=== PATIENT | female | born 1930 | race Caucasian/White ===

== ENCOUNTER 2016-07-31 11:33 | Inpatient (IN) | payer MEDICARE ==
[2016-07-31] VITALS (12 sets, daily range): BP systolic 114–137; BP diastolic 51–99; PULSE 85–94; RESP 16–18; TEMP 97.8–98; O2SAT 87–99
[~2016-07-31] VITALS: Ht 121.9 cm; Wt 53.0 kg
[~2016-07-31 11:33] MED LIST: AMLO5TAB2 PO; ASPI81CH CHEW; ATOR20TA15 PO; COMB0.2S EACH EYE; MEMA28CA PO; MIRA33504 PO; MULT1TAB84 PO; RANI150T PO; WARF-23 PO
[2016-07-31] MEDS ORDERED: SODIUM CHLORIDE 0.9% FLUSH 5 ML FLUSH IVF PRN (13:15)
[2016-07-31] MEDS ORDERED: TRAV0.00 EACH EYE (13:16)
--- NOTE | 2016-07-31 14:06 | PD ---
HPI Chief Complaint: General Weakness Time Seen by Provider: 12:35 Travel History International Travel<30 days: No Contact w/Intl Traveler<30days: No Traveled to known affect area: No History of Present Illness HPI Patient is an 86-year-old female presents with her friend from assisted living facility for concerns of left lower extremity pain superpubic pain as well as decreased mental status over the past few days. Patient's coming by her friend who also identifies as her power of admitted attorneys and states that she's been having increased confusion problems remembering things and has had recurrent falls at the assisted living facility. Patient hasn't noted no complaints of chest pain shortness of breath abdominal pain headaches. No history of fevers. No dysuria. Patient's only complaint at this time is left hip pain. She is mildly confused but is oriented to person and place. She does seem to wander in her train of thought [facility] Past Medical History Arthritis: Yes Asthma: No Autoimmune Disease: No Anxiety: No Depression: No Heart Rhythm Problems: No Cancer: No Cardiovascular Problems: Yes High Cholesterol: Yes Chest Pain: No Congestive Heart Failure: No COPD: No Cerebrovascular Accident: Yes Dementia: Yes Diabetes: No Diminished Hearing: Yes Endocrine: No Gastrointestinal Disorders: Yes GERD: Yes Glaucoma: Yes (EVA.) Genitourinary: Yes (KIDNEY SX ) Hepatitis: No Hiatal Hernia: No Hypertension: Yes Immune Disorder: No Kidney Stones: No Medical other: Yes (reflux, esophageal stricture, recent frequent falls) Musculoskeletal: Yes Neurologic: Yes Psychiatric: No Reproductive: No Respiratory: Yes (HX OF TB ) Immunizations Current: Yes Migraines: No Renal Failure: No Seizures: No Sickle Cell Disease: No Sleep Apnea: No Thyroid Disease: No Ulcer: No Tetanus Vaccination: Unknown Influenza Vaccination: Yes ?: Not Menopausal: Yes : 0 Past Surgical History Abdominal Surgery: Yes (BOWEL OBSTRUCTION,colon resection APPENDECTOMY) AICD: No Appendectomy: Yes Arteriovenous Shunt: No Cardiac Surgery: No Ear Surgery: No Endocrine Surgery: No Eye Surgery: Yes (CATARACT AND LASER) Genitourinary Surgery: Yes (KIDNEY SX, pyeloplasty ?/) Gynecologic Surgery: No Insulin Pump: No Joint Replacement: No Oral Surgery: No Pacemaker: No Thoracic Surgery: No Other Surgery: Yes Social History Alcohol Use: No Tobacco Use: Yes (QUIT 20 YEARS AGO- smoked cigs) Substance Use: No Allergies-Medications (Allergen,Severity, Reaction): Coded Allergies: Codeine (Verified Allergy, Severe, unknown reaction, 06/17/16) Flagyl (Verified Allergy, Severe, severe oral swelling, 06/17/16) Iodine (Verified Allergy, Severe, 06/17/16) HIVES Penicillin (Verified Allergy, Severe, hands swelled, 06/17/16) Bactrim (Verified Allergy, Mild, Rash, 06/17/16) Cipro (Verified Allergy, Unknown, 06/17/16) Reported Meds & Prescriptions Reported Meds & Active Scripts Active Reported Travatan Z Opth Drops (Travoprost) 0.004 % Soln 1 Drop EACH EYE HS Amlodipine (Amlodipine Besylate) 5 Mg Tab 5 Mg PO DAILY Atorvastatin (Atorvastatin Calcium) 20 Mg Tab 20 Mg PO HS Warfarin 5 Mg Tab 6 Mg PO DAILY Combigan Opth Drops (Brimonidine-Timolol Opth Drops) 0.2-0.5% Soln 1 Drop EACH EYE Q12HR Ranitidine (Ranitidine HCl) 150 Mg Tab 150 Mg PO BID Namenda Xr (Memantine) 28 Mg Caper 28 Mg PO DAILY Aspirin 81 Mg Chew 81 Mg CHEW DAILY Multivitamin Adults (Multiple Vitamins W/ Minerals) 1 Tab 1 Tab PO DAILY Miralax Powder (Polyethylene Glycol 3350 Powder) 17 Gm Powd 17 Gm PO DAILY Mix and dissolve one measuring cap-ful (17 grams) in water or juice. Review of Systems Except as stated in HPI: all other systems reviewed are Neg Physical Exam Narrative GENERAL: Well-developed well-nourished in no apparent distress SKIN: Warm and dry. HEAD: Atraumatic. Normocephalic. EYES: Pupils equal and round. No scleral icterus. No injection or drainage. ENT: No nasal bleeding or discharge. Mucous membranes pink and moist. NECK: Trachea midline. No JVD. CARDIOVASCULAR: Regular rate and rhythm. No murmur appreciated. 2+ bilateral equal pulses in all 4 extremities. RESPIRATORY: No accessory muscle use. Clear to auscultation. Breath sounds equal bilaterally. GASTROINTESTINAL: Abdomen soft, non-tender, nondistended. Hepatic and splenic margins not palpable. MUSCULOSKELETAL: No obvious deformities. No clubbing. No cyanosis. No edema. There is minimal tenderness about the left greater trochanter on the left hip. No bruising no laceration. Left knee is normal. Right lower extremity is within normal limits. Remainder of extremities are atraumatic. No tenderness on the CT or L-spine. NEUROLOGICAL: Awake and alert. No cranial nerves II through XII are grossly intact and nonfocal, 5 out of 5 strength in all 4 extremities. PSYCHIATRIC: Pleasantly and mildly confused. She is awake and alert and oriented to person and place only. Data Data Last Documented VS Vital Signs Date Time Temp Pulse Resp B/P Pulse Ox O2 Delivery O2 Flow Rate FiO2 07/31/16 17:35 87 16 119/52 96 Room Air 07/31/16 11:44 98.0 Orders Electrocardiogram (07/31/16 13:15) Complete Blood Count With Diff (07/31/16 13:15) Comprehensive Metabolic Panel (07/31/16 13:15) Creatine Kinase (Cpk) (07/31/16 13:15) Prothrombin Time / Inr (Pt) (07/31/16 13:15) Act Partial Throm Time (Ptt) (07/31/16 13:15) Urinalysis - C+S If Indicated (07/31/16 13:15) Chest, Single Ap (07/31/16 13:15) Ct Brain W/O Iv Contrast(Rout) (07/31/16 13:15) Blood Glucose (07/31/16 13:15) Ecg Monitoring (07/31/16 13:15) Iv Access Insert/Monitor (07/31/16 13:15) Oximetry (07/31/16 13:15) Sodium Chloride 0.9% Flush (Ns Flush) (07/31/16 13:15) Cath For Specimen (07/31/16 13:15) Hip, Uni(Ap&Lat) W Ap Pelvis (07/31/16 ) CKMB (07/31/16 13:55) CKMB% (07/31/16 13:55) Troponin I (07/31/16 14:41) Urine Culture (07/31/16 14:25) B-Type Natriuretic Peptide (07/31/16 14:53) Cta Thor Abd Aorta W Iv C W3d (07/31/16 ) Diphenhydramine Inj (Benadryl Inj) (07/31/16 15:30) Aspirin Chew (Aspirin Chew) (07/31/16 15:45) Electrocardiogram (07/31/16 ) Methylprednisolone So Succ Inj (Solumedr (07/31/16 16:00) Troponin I (07/31/16 17:14) Iohexol 350 Inj (Omnipaque 350 Inj) (07/31/16 17:37) Admit Order (Ed Use Only) (07/31/16 ) Labs Laboratory Tests Test 07/31/16 07/31/16 07/31/16 13:55 14:25 17:50 White Blood Count 10.8 TH/MM3 Red Blood Count 3.68 MIL/MM3 Hemoglobin 10.4 GM/DL Hematocrit 31.7 % Mean Corpuscular Volume 86.1 FL Mean Corpuscular Hemoglobin 28.3 PG Mean Corpuscular Hemoglobin 32.8 % Concent Red Cell Distribution Width 13.1 % Platelet Count 409 TH/MM3 Mean Platelet Volume 7.9 FL Neutrophils (%) (Auto) 74.8 % Lymphocytes (%) (Auto) 12.0 % Monocytes (%) (Auto) 11.0 % Eosinophils (%) (Auto) 0.2 % Basophils (%) (Auto) 2.0 % Neutrophils # (Auto) 8.1 TH/MM3 Lymphocytes # (Auto) 1.3 TH/MM3 Monocytes # (Auto) 1.2 TH/MM3 Eosinophils # (Auto) 0.0 TH/MM3 Basophils # (Auto) 0.2 TH/MM3 CBC Comment DIFF FINAL Differential Comment Prothrombin Time 60.5 SEC Prothromb Time International 5.1 RATIO Ratio Activated Partial 55.9 SEC Thromboplast Time Sodium Level 141 MEQ/L Potassium Level 4.1 MEQ/L Chloride Level 106 MEQ/L Carbon Dioxide Level 24.4 MEQ/L Anion Gap 11 MEQ/L Blood Urea Nitrogen 24 MG/DL Creatinine 1.10 MG/DL Estimat Glomerular Filtration 47 ML/MIN Rate Random Glucose 113 MG/DL Calcium Level 8.2 MG/DL Total Bilirubin 1.1 MG/DL Aspartate Amino Transf 96 U/L (AST/SGOT) Alanine Aminotransferase 27 U/L (ALT/SGPT) Alkaline Phosphatase 59 U/L Total Creatine Kinase 410 U/L Creatine Kinase MB 62.0 NG/ML Creatine Kinase MB % 15.1 % Troponin I 16.10 NG/ML 15.50 NG/ML B-Type Natriuretic Peptide 1271 PG/ML Total Protein 6.0 GM/DL Albumin 2.8 GM/DL Urine Collection Type CATH Urine Color YELLOW Urine Turbidity SLIGHT Urine pH 5.5 Urine Specific Slade 1.022 Urine Protein 100 mg/dL Urine Glucose (UA) NEG mg/dL Urine Ketones TRACE mg/dL Urine Occult Blood NEG Urine Nitrite NEG Urine Bilirubin NEG Urine Leukocyte Esterase NEG Urine WBC 6-8 /hpf Urine Squamous Epithelial 0-5 /hpf Cells Urine Transitional Epithelial /hpf Cells Urine Bacteria MANY /hpf Microscopic Urinalysis Comment CULTURE INDICATED MDM Medical Decision Making Medical Screen Exam Complete: Yes Emergency Medical Condition: Yes Interpretation(s) EKG shows normal sinus rhythm with left axis deviation and normal R-wave progression. There is minimal ST elevation in lead 3 without any other concordant leads. There are T-wave inversions in V5 through V6. These are concerning for but nondiagnostic for acute infarct. There are Q waves in lead 3 and aVF signifying probable previous infarct or a resolving infarct. This is an abnormal EKG. Differential Diagnosis Altered mental status, arrhythmia, recurrent falls, syncope, STEMI, AMI, hip fracture, urinary tract infection, intracranial injury. Narrative Course Patient was roomed in the emergency department, she appears well and in no apparent distress. Her only concerning physical finding is tenderness on the left hip and some mild altered mental status. She does have a history of dementia however and could be close to her baseline. Patient's workup includes an EKG which shows Q waves forming in lead 3 and aVF which is new since previous tracing. There is also nondiagnostic elevation in lead 3 without any obvious physical changes. This is concerning for but nondiagnostic for ischemia. Patient does have a minimally widened mediastinum when compared to her previous chest x-ray 6 months ago. With her elevations in troponin and frequent falls concern is for dissection. CT angiogram was performed and negative for dissection. Patient was premedicated with Benadryl and steroids and had no adverse reaction to contrast. Patient's EKG was repeated in the emergency department is not evolving. Initial troponin resulted at 16, repeat is now 15. This suggests resolving infarct. Chest x-ray also shows some pulmonary edema. Patient was given Lasix 20 mg IV. She has not had any desaturation in the emergency department. Her vital signs have remained stable while in emerged Department for over 5 hours. Patient was discussed with Dr. Delgado has reviewed the EKGs and recommends admission to the main hospital and consultation with him in the morning. We discussed heparinization and currently her INRs 5 and we agree on holding heparin. Patient was discussed with Dr. Cassi Yepez over will place orders for admission under Dr. Rosaura Garrido I did discuss with the patient her CODE STATUS and at this time she remains full code. Last [address] 07/31/16 1315 Signed Impressions: Service Date/Time: Sunday, July 31, 2016 14:31 - CONCLUSION: Atrophy with moderate vascular calcifications, negative for acute process. Kamari Peoples MD FACR Chest X-Ray 07/31/16 1315 Signed Impressions: Service Date/Time: Sunday, July 31, 2016 13:26 - CONCLUSION: 1. Cardiomegaly and findings of congestive heart failure. Julio Sims MD Hip and Pelvis X-Ray 07/31/16 0000 Signed Impressions: Service Date/Time: Sunday, July 31, 2016 13:30 - CONCLUSION: Negative for fracture or dislocation. Followup in 7-10 days is suggested if symptoms persist. Kamari Peoples MD FACR Aorta CTA 07/31/16 0000 Signed Impressions: Service Date/Time: Sunday, July 31, 2016 17:05 - CONCLUSION: Extensive atherosclerotic vascular calcifications with no evidence of aneurysm . Degenerative findings of the lower lumbar spine. Moderate size retrocardiac hiatal hernia Andrey Warren MD Critical Care Narrative Aggregate critical care time was 40 minutes. Time to perform other separately billable procedures was not included in the critical care time. My time did not include minutes spent treating any other patients simultaneously or on activities that did not directly contribute to the patient's treatment. The services I provided to this patient were to treat and/or prevent clinically significant deterioration that could result in: , disability, and organ failure. I provided critical care services requiring my management, as noted below: Chart data review, documentation time, medication orders and management, vital sign assessments/reviewing monitor data, ordering and reviewing lab tests, ordering and interpreting/reviewing x-rays and diagnostic studies, care of the patient and discussion of the patient with the admitting physicians. Discussed to multiple physicians including cardiology, medicine, discussing with radiology techs regarding premedication procedures And counseling the patient and her friend/power of admitted attorneys. Diagnosis Primary Impression: NSTEMI (non-ST elevated myocardial infarction) Additional Impressions: Urinary tract infection Pulmonary edema Frequent falls Left hip pain Admitting Information Admitting Physician Requests: Admit Condition: Alejandro Murray MD Jul 31, 2016 14:06
--- NOTE | 2016-07-31 14:07 | RADHPO ---
EXAM DATE/TIME: 07/31/2016 13:30 [facility] COMPARISON: No previous studies available for comparison. INDICATIONS : Left hip pain after fall. MEDICAL HISTORY : None. SURGICAL HISTORY : None. ENCOUNTER: Initial ACUITY: 2 days PAIN SCORE: 3/10 LOCATION: Left hip FINDINGS: Examination of the left hip was performed with AP Pelvis. The primary and secondary trabecular patte rn of the femoral neck is intact. The hip joint is of normal width without significant sclerosis or bony hypertrophy. The acetabulum is grossly intact. Moderate vascular calcifications are noted. CONCLUSION: Negative for fracture or dislocation. Followup in 7-10 days is suggested if symptoms persist. Kamari Peoples MD FACR on July 31, 2016 at 13:58 Board Certified Radiologist. This report was verified electronically.
[2016-07-31 14:08] LABS: AUTOMATED NEUTROPHIL # 8.1 TH/MM3 (1.8-7.7); BASOPHIL # 0.2 TH/MM3 (0-0.2); EOSINOPHIL % 0.2 % (0.0-4.0); HEMATOCRIT 31.7 % (35.0-46.0); LYMPHOCYTE # 1.3 TH/MM3 (1.0-4.8); MEAN CELL VOLUME 86.1 FL (80.0-100.0); MEAN CORPUSCULAR HEMOGLOBIN 28.3 PG (27.0-34.0); MEAN CORPUSCULAR HGB CONC 32.8 % (32.0-36.0); NEUT % 74.8 % (16.0-70.0); PLATELET COUNT 409 TH/MM3 (150-450); RED BLOOD COUNT 3.68 MIL/MM3 (4.00-5.30); RED CELL DISTRIBUTION WIDTH 13.1 % (11.6-17.2); WHITE BLOOD COUNT 10.8 TH/MM3 (4.0-11.0)
[2016-07-31 14:09] LABS: HEMO FLAGS DIFF FINAL
[2016-07-31 14:15] LABS: CHLORIDE 106 MEQ/L (98-107); POTASSIUM 4.1 MEQ/L (3.5-5.1); SODIUM (NA) 141 MEQ/L (136-145)
[2016-07-31 14:18] LABS: ANION GAP 11 MEQ/L (5-15); BICARBONATE 24.4 MEQ/L (21.0-32.0)
[2016-07-31 14:19] LABS: BLOOD UREA NITROGEN 24 MG/DL (7-18)
[2016-07-31 14:20] LABS: APTT (PATIENT) 55.9 SEC (24.3-30.1); INTERNATIONAL NORMALIZED RATIO 5.1 RATIO; PROTHROMBIN TIME - PATIENT 60.5 SEC (9.8-11.6)
[2016-07-31 14:21] LABS: ALT (GPT) 27 U/L (10-53)
[2016-07-31 14:22] LABS: AST (GOT) 96 U/L (15-37); GLOMERULAR FILTRATION RATE 47 ML/MIN (>89)
[2016-07-31 14:23] LABS: TOTAL BILIRUBIN ADULT 1.1 MG/DL (0.2-1.0)
[2016-07-31 14:24] LABS: ALKALINE PHOSPHATASE 59 U/L (45-117); CREATINE KINASE 410 U/L (26-192)
--- NOTE | 2016-07-31 14:28 | RADHPO ---
EXAM DATE/TIME: 07/31/2016 13:26 [facility] COMPARISON: CHEST SINGLE AP, February 27, 2016, 6:16. INDICATIONS : Short of breath MEDICAL HISTORY : None. SURGICAL HISTORY : None. ENCOUNTER: Initial ACUITY: 2 days PAIN SCORE: 1/10 LOCATION: Bilateral chest FINDINGS: The cardiac silhouette is enlarged in transverse diameter. There is prominence of the aortic knob is with calcification characteristic of atherosclerotic vascular disease. There are findings of congesti ve heart failure with interstitial and alveolar opacity bilaterally. No pleural effusions are identif ied. CONCLUSION: 1. Cardiomegaly and findings of congestive heart failure. Julio Sims MD on July 31, 2016 at 13:57 Board Certified Radiologist. This report was verified electronically.
[2016-07-31 14:38] LABS: BLOOD, URINE NEG (NEG); GLUCOSE,URINE NEG (NEG); KETONE, URINE TRACE mg/dL (NEG); NITRITE,URINE NEG (NEG); PH, URINE 5.5 (5.0-8.5)
--- NOTE | 2016-07-31 14:42 | RADHPO ---
EXAM DATE/TIME: 07/31/2016 14:31 There is marked central and cortical atrophy with dilatation of ventricular and sulcal spaces. There is no parenchymal hemorrhage, acute infarction or mass lesion identified. There are no extra-a xial fluid collections appreciated. The posterior fossa is unremarkable with midline fourth ventricl e. The portion of the orbits and paranasal sinuses visualized are unremarkable. CONCLUSION: Atrophy with moderate vascular calcifications, negative for acute process. Kamari Peoples MD FACR on July 31, 2016 at 14:40 Board Certified Radiologist. This report was verified electronically.
[2016-07-31 14:43] LABS: METHOD OF COLLECTION CATH; URINE COLOR YELLOW (YELLW/STRAW)
[2016-07-31 14:45] LABS: SQUAMOUS EPITHELIAL CELL URINE 0-5 /hpf (0-5)
[2016-07-31 14:46] LABS: BACTERIA, URINE MANY /hpf; COMMENT (UR) CULTURE INDICATED; CULTURE IF INDICATED CULTURE INDICATED
[2016-07-31] MEDS ORDERED: diphenhydrAMINE HCL 50 MG/ML VIAL IV PUSH ONE (15:30)
[2016-07-31] MEDS ORDERED: ASPIRIN 81 MG CHEW TAB CHEW ONE (15:45)
[2016-07-31] MEDS ORDERED: methylPREDNISolone SOD SUCC 40 MG/1 ML VIAL IV PUSH ONE (16:00)
[2016-07-31] MEDS ORDERED: IOHEXOL 350 MG/ML 10 ML VIAL (for RAD DIAG) IV ONE (17:37)
--- NOTE | 2016-07-31 17:55 | RADHPO ---
EXAM DATE/TIME: 07/31/2016 17:05 [facility] COMPARISON: No previous studies available for comparison. INDICATIONS : Abdomen pain, aneursym. IV CONTRAST: 100 cc Omnipaque 350 (iohexol) IV RADIATION DOSE: 13.36 CTDIvol (mGy) MEDICAL HISTORY : Cardiovascular disease. Cerebrovascular disease. SURGICAL HISTORY : Appendectomy. ENCOUNTER: Initial ACUITY: 1 day PAIN SCALE: 5/10 LOCATION: lower back TECHNIQUE: Volumetric scanning was performed using a multi-row detector CT scanner. The data was post processed with a variety of visualization algorithms including full volume maximum intensity pr ojection, multi-planar sliding thin slab reformation, curved planar reformation, and surface renderin g techniques. Using automated exposure control and adjustment of the mA and/or kV according to patie nt size, radiation dose was kept as low as reasonably achievable to obtain optimal diagnostic quality images. FINDINGS: LUNGS: There is no consolidation or pneumothorax. No concerning pulmonary nodule is visualized. No pleural fluid is present. MEDIASTINUM: No abnormally enlarged lymph nodes by CT criteria. No axillary or hilar abnormalitie s are identified. Moderate size retrocardiac hiatal hernia. ABDOMEN: The liver and spleen are free of focal defects. The gallbladder and pancreas demonstrate no abnormality. The adrenal glands are normal. The kidneys demonstrate no evidence of solid renal ma ss or hydronephrosis. No free fluid or abdominal masses are identified. No para-aortic adenopathy is seen. PELVIS: No evidence of free fluid or pelvic mass. No abnormally enlarged inguinal or retroperiton eal lymph nodes are present. The bladder is unremarkable. Degenerative changes of the lumbar spine gr garret 1 spinal listhesis L4 and L5. THORACIC AORTA: The thoracic aortic root is normal with normal branching of the great vessels. There is no evidence of aneurysm or dissection. Extensive atherosclerotic vascular calcifications ar e noted ABDOMINAL AORTA: The aorta is normal in caliber without aneurysm or dissection. The renal arteri es are patent bilaterally. The proximal celiac and superior mesenteric arteries are patent and nancy l in diameter. Extensive atherosclerotic vascular calcifications are appreciated. PELVIC VESSELS: The internal iliac and external iliac vessels are patent without aneurysm or sten osis. CONCLUSION: Extensive atherosclerotic vascular calcifications with no evidence of aneurysm . Dege nerative findings of the lower lumbar spine. Moderate size retrocardiac hiatal hernia Andrey Warren MD on July 31, 2016 at 17:49 Board Certified Radiologist. This report was verified electronically.
[2016-07-31] MEDS ORDERED: NITROGLYCERIN 0.4 MG SL 25 TABS/BTL SL PRN (18:30)
[2016-07-31] MEDS ORDERED: NALOXONE HCL 0.4 MG/ML AMP IV PRN (18:30)
[2016-07-31] MEDS ORDERED: SODIUM CHLORIDE 0.9% FLUSH 5 ML FLUSH FLUSH PRN (18:30)
[2016-07-31] MEDS ORDERED: ONDANSETRON HCL 4 MG/2 ML VIAL IVP PRN (18:30)
[2016-07-31] MEDS ORDERED: DOXYCYCLINE HYCLATE 100 MG CAP PO ONE (19:00)
[2016-07-31] MEDS ORDERED: FUROSEMIDE 40 MG/4 ML VIAL IV PUSH ONE (19:15)
[2016-07-31] MEDS ORDERED: DOXYCYCLINE HYCLATE 100 MG TAB PO ONE (20:00)
[2016-07-31] MEDS: METOPROLOL TARTRATE 25 MG TAB PO SCH (21:42)
[2016-07-31] MEDS: SODIUM CHLORIDE 0.9% FLUSH 5 ML FLUSH FLUSH SCH (21:42)
[2016-08-01] VITALS (16 sets, daily range): BP systolic 106–132; BP diastolic 55–72; PULSE 78–99; RESP 16–18; TEMP 98.1–98.9; O2SAT 95–98
[2016-08-01 07:22] LABS: INTERNATIONAL NORMALIZED RATIO 5.2 RATIO; PROTHROMBIN TIME - PATIENT 62.3 SEC (9.8-11.6)
--- NOTE | 2016-08-01 07:29 | PD.CONS ---
HPI Service CV Consult Requested By Reason for Consult NSTEMI Primary Care Physician Hollis Estrada MD History of Present Illness Here for a fall with hyperlipidemia, CVA 2013 on warfarin, HTN and dementia. She is pleasantly confused. She states she has had 4 falls over as many day. She also states she has been groggy. She denies any chest pain, shortness of breath or palpitations. Her friend states she has been getting more confused lately. (Aquiles Jasso) Review of Systems Consitutional: DENIES: Fatigue, Fever, Chills, Weight gain, Weight loss Eyes: DENIES: Amaurosis Fugax, Change in vision Respiratory: DENIES: See HPI, Cough, Snoring, Shortness of breath, Wheezing, Sputum production Cardiovascular: COMPLAINS OF: See HPI Gastrointestinal: DENIES: Nausea, Vomiting, Change in bowel habits, Reflux, Bloody stools, Melena Genitourinary: DENIES: Urinary incontinence, Difficulty voiding Integumentary: DENIES: Rash Neurologic: COMPLAINS OF: Memory problems, DENIES: Tingling or numbness, Poor Balance, Stroke symptoms Musculoskeletal: DENIES: Joint pain, Muscle pain, Limited range of motion, Back pain Psychiatric: DENIES: Anxiety, Depression, Sleep disturbances Hematologic: DENIES: Bruising tendencies, Bleeding tendencies Endocrine: DENIES: Weight gain, Weight loss, Thyroid disease (Aquiles Jasso ) Past Family Social History Allergies: Coded Allergies: Codeine (Verified Allergy, Severe, unknown reaction, 06/17/16) Flagyl (Verified Allergy, Severe, severe oral swelling, 06/17/16) Iodine (Verified Allergy, Severe, 06/17/16) HIVES Penicillin (Verified Allergy, Severe, hands swelled, 06/17/16) Bactrim (Verified Allergy, Mild, Rash, 06/17/16) Cipro (Verified Allergy, Unknown, 06/17/16) Past Medical History see HPI GERD glaucoma Past Surgical History hemorrhoidectomy bowel resection cataract surgery Reported Medications Travatan Z Opth Drops (Travoprost) 0.004 % Soln 1 Drop EACH EYE HS Amlodipine (Amlodipine Besylate) 5 Mg Tab 5 Mg PO DAILY Atorvastatin (Atorvastatin Calcium) 20 Mg Tab 20 Mg PO HS Warfarin 5 Mg Tab 6 Mg PO DAILY Combigan Opth Drops (Brimonidine-Timolol Opth Drops) 0.2-0.5% Soln 1 Drop EACH EYE Q12HR Ranitidine (Ranitidine HCl) 150 Mg Tab 150 Mg PO BID Namenda Xr (Memantine) 28 Mg Caper 28 Mg PO DAILY Aspirin 81 Mg Chew 81 Mg CHEW DAILY Multivitamin Adults (Multiple Vitamins W/ Minerals) 1 Tab 1 Tab PO DAILY Miralax Powder (Polyethylene Glycol 3350 Powder) 17 Gm Powd 17 Gm PO DAILY Mix and dissolve one measuring cap-ful (17 grams) in water or juice. Family History noncontributory Social History quit smoking 20 years ago denies alcohol or substance abuse (Aquiles aJsso) Physical Exam Vital Signs Vital Signs Date Time Temp Pulse Resp B/P Pulse Ox O2 Delivery O2 Flow Rate FiO2 08/01/16 07:05 16 97 Room Air 08/01/16 07:05 85 16 97 Room Air 08/01/16 06:14 85 16 111/58 96 Room Air 08/01/16 03:45 98.9 86 16 132/65 98 Room Air 08/01/16 03:45 Room Air 08/01/16 00:20 78 16 116/69 97 07/31/16 23:10 Room Air 07/31/16 23:10 85 17 128/66 96 Room Air 07/31/16 22:00 86 16 118/69 99 Room Air 07/31/16 21:37 92 18 137/99 97 Room Air 07/31/16 20:15 97.8 93 17 134/61 96 Room Air 07/31/16 19:10 90 18 125/66 96 Room Air 07/31/16 19:10 Room Air 07/31/16 19:00 89 18 128/66 97 Room Air 07/31/16 18:30 16 Room Air 07/31/16 17:35 87 16 119/52 96 Room Air 07/31/16 16:30 65 16 Room Air 07/31/16 15:40 87 16 119/61 87 Room Air 07/31/16 14:40 85 16 114/51 98 Room Air 07/31/16 14:35 75 16 Room Air 07/31/16 13:30 86 16 137/62 98 Room Air 07/31/16 12:35 90 16 98 Room Air 07/31/16 12:35 16 99 Room Air 07/31/16 11:44 98.0 94 16 115/67 99 Physical Exam GENERAL: Well-nourished, well-developed patient in no apparent distress. NECK: No JVD. No carotid bruit. CARDIOVASCULAR: Regular rate and rhythm. S1/S2 no murmur, rub, or gallop. RESPIRATORY: No accessory muscle use. Clear to auscultation. Breath sounds equal bilaterally. GASTROINTESTINAL: Abdomen soft, non-tender, nondistended. MUSCULOSKELETAL: Extremities without clubbing, cyanosis, or edema. Laboratory Laboratory Tests Test 07/31/16 07/31/16 07/31/16 08/01/16 13:55 14:25 17:50 00:30 White Blood Count 10.8 Red Blood Count 3.68 Hemoglobin 10.4 Hematocrit 31.7 Mean Corpuscular Volume 86.1 Mean Corpuscular Hemoglobin 28.3 Mean Corpuscular Hemoglobin 32.8 Concent Red Cell Distribution Width 13.1 Platelet Count 409 Mean Platelet Volume 7.9 Neutrophils (%) (Auto) 74.8 Lymphocytes (%) (Auto) 12.0 Monocytes (%) (Auto) 11.0 Eosinophils (%) (Auto) 0.2 Basophils (%) (Auto) 2.0 Neutrophils # (Auto) 8.1 Lymphocytes # (Auto) 1.3 Monocytes # (Auto) 1.2 Eosinophils # (Auto) 0.0 Basophils # (Auto) 0.2 CBC Comment DIFF FINAL Differential Comment Prothrombin Time 60.5 Prothromb Time International 5.1 Ratio Activated Partial 55.9 Thromboplast Time Sodium Level 141 Potassium Level 4.1 Chloride Level 106 Carbon Dioxide Level 24.4 Anion Gap 11 Blood Urea Nitrogen 24 Creatinine 1.10 Estimat Glomerular Filtration 47 Rate Random Glucose 113 Calcium Level 8.2 Total Bilirubin 1.1 Aspartate Amino Transf 96 (AST/SGOT) Alanine Aminotransferase 27 (ALT/SGPT) Alkaline Phosphatase 59 Total Creatine Kinase 410 Creatine Kinase MB 62.0 Creatine Kinase MB % 15.1 Troponin I 16.10 15.50 9.01 B-Type Natriuretic Peptide 1271 Total Protein 6.0 Albumin 2.8 Urine Collection Type CATH Urine Color YELLOW Urine Turbidity SLIGHT Urine pH 5.5 Urine Specific [place] 1.022 Urine Protein 100 Urine Glucose (UA) NEG Urine Ketones TRACE Urine Occult Blood NEG Urine Nitrite NEG Urine Bilirubin NEG Urine Leukocyte Esterase NEG Urine WBC 6-8 Urine Squamous Epithelial 0-5 Cells Urine Transitional Epithelial Cells Urine Bacteria MANY Microscopic Urinalysis Comment CULTURE INDICATED Date/Time Procedure Status Source Growth 07/31/16 14:25 Urine Culture Received Urine Catheterized Urine Pending (Aquiles Jasso) Result Diagram: 07/31/16 1355 07/31/16 1355 Assessment and Plan Problem List: (1) NSTEMI (non-ST elevated myocardial infarction) (2) Hypertension (3) Hyperlipidemia Assessment and Plan With significantly elevated troponin she will probably require further cardiac diagnostics. She is confused and there is some concern that if she had to have coronary intervention could she properly take Plavix. Her blood pressure is well controlled Coumadin is being held due to toxicity, she is on this for a history of CVA ( Aquiles Jasso) Assessment and Plan NSTEMI - currently CP free. asa statin bb. troponin trending down. INR still therapeutic. hold on heparin gtt. Will eventually need LHC. confusion - baseline is good. she is independent and lives alone. + UTI may be cause. wait for Mental status to improve. (Tj Delgado MD) Aquiles Jasso Aug 01, 2016 07:29 Tj Delgado MD Aug 01, 2016 12:01
[2016-08-01] MEDS ORDERED: ASPIRIN 325 MG TAB PO SCH (09:00)
[2016-08-01] MEDS: SODIUM CHLORIDE 0.9% FLUSH 5 ML FLUSH FLUSH SCH ×2 (09:00→20:26)
[2016-08-01] MEDS: METOPROLOL TARTRATE 25 MG TAB PO SCH ×2 (09:00→20:27)
[2016-08-01] MEDS ORDERED: BIVALIRUDIN INJ 250 MG in SODIUM CHLORIDE 0.9% INJ 50 ML IV SCH (09:49)
[2016-08-01] MEDS ORDERED: LIDOCAINE 2% JELLY 30 ML TUBE TOP PRN (10:00)
[2016-08-01] MEDS ORDERED: MISC INFORMATION XX ONE (10:00)
[2016-08-01] MEDS ORDERED: MORPHINE SULFATE 4 MG/ML INJ IV PUSH PRN (10:00)
[2016-08-01] MEDS ORDERED: PRASUGREL 10 MG TAB PO ONE (10:30)
[2016-08-01] MEDS ORDERED: PILL SPLITTER OTHER PRN (10:30)
[2016-08-01] MEDS ORDERED: BACITRACIN OINT 0.9 GM PKT TOP ONE (11:00)
[2016-08-01] MEDS ORDERED: PHYTONADIONE 5 MG TAB PO ONE (11:45)
--- NOTE | 2016-08-01 13:41 | EKG ---
Date Performed: 07/31/2016 Time Performed: 19:35:26 PTAGE: 86 years EKG: Sinus rhythm Inferior infarct - age undetermined Anterolateral ST-T changes are nonspecific Abnormal ECG Compared to prior tracing no significant change PREVIOUS TRACING : 07/31/2016 15.41 DOCTOR: Neisha eKrr Interpretating Date/Time 08/01/2016 13:40:34
[2016-08-01] MEDS ORDERED: SODIUM CHLOR 0.45% 1000 ML INJ 1,000 ML IV SCH (14:00)
--- NOTE | 2016-08-01 14:03 | HHI.HP ---
[facility] Hollis Estrada MD Admission Diagnosis NSTEMI Diagnoses: Chief Complaint: Pain, confusion Travel History International Travel<30 Days: No Contact w/Intl Traveler <30 Da: No Traveled to Known Affected Are: No History of Present Illness The patient is an 86-year-old female with a past medical history of CVA who is presenting to the hospital with complaints of left leg pain and confusion. The patient states that she tends to fall down on a daily basis. She says she even hits her head on a regular basis. She currently resides in an assisted living facility. Her friend was concerned with the patient's increasing confusion. She has a history of dementia for which she takes Namenda. The patient states that her left hip is bothering her because it's bruised from falling down frequently. She otherwise has no acute complaints. She denies any chest pain or shortness of breath. She says she generally takes stool softeners to make sure she is regular. The patient was taken to the [facility] where she was found to have elevated troponins. She was transferred to the main campus and evaluated by cardiology. The patient continues to deny any chest pain. She was found to have an elevated INR over 5. She received vitamin K. Head CT was negative for a bleed. Her hemoglobin is considerably lower than it was on the previous admission. Review of Systems ROS Limitations: Altered Mental Status, Poor Historian Constitutional: COMPLAINS OF: Change in appetite Respiratory: DENIES: Shortness of breath Cardiovascular: DENIES: Chest pain Gastrointestinal: DENIES: Constipation Musculoskeletal: COMPLAINS OF: Joint pain, Muscle aches Neurologic: COMPLAINS OF: Abnormal gait, Poor Balance Psychiatric: COMPLAINS OF: Confusion Past Family Social History Past Medical History CVA Dementia HTN GERD Past Surgical History Hemorrhoidectomy Bowel resection Cataract surgery Allergies: Coded Allergies: Codeine (Verified Allergy, Severe, unknown reaction, 06/17/16) Flagyl (Verified Allergy, Severe, severe oral swelling, 06/17/16) Iodine (Verified Allergy, Severe, 06/17/16) HIVES Penicillin (Verified Allergy, Severe, hands swelled, 06/17/16) Bactrim (Verified Allergy, Mild, Rash, 06/17/16) Cipro (Verified Allergy, Unknown, 06/17/16) Active Ordered Medications Current Medications Medications (Trade) Dose Ordered Sig/Alfreda Route Start Time Stop Time Status Last Admin (NS Flush) 2 ml UNSCH PRN FLUSH 07/31/16 18:30 (NS Flush) 2 ml BID FLUSH 07/31/16 21:00 08/01/16 09:00 (Zofran Inj) 4 mg Q6H PRN IVP 07/31/16 18:30 (Narcan Inj) 0.4 mg UNSCH PRN IV 07/31/16 18:30 (Nitrostat Sl) 0.4 mg Q5M PRN SL 07/31/16 18:30 (Lopressor) 12.5 mg Q12HR PO 08/01/16 21:00 (Pill Splitter) 1 ea UNSCH PRN OTHER 08/01/16 10:30 (Lipitor) 20 mg HS PO 08/01/16 21:00 (Ecotrin Ec) 81 mg DAILY PO 08/02/16 09:00 (Theragran M Tab) 1 tab DAILY PO 08/02/16 09:00 UNV (Miralax) 17 gm DAILY PO 08/02/16 09:00 UNV (Zantac) 150 mg BID PO 08/01/16 21:00 UNV Non-Formulary Medication 1 drop Q12HR EACH EYE 08/01/16 21:00 UNV Non-Formulary Medication 28 mg DAILY PO 08/01/16 13:30 UNV Non-Formulary Medication 1 drop HS EACH EYE 08/01/16 21:00 UNV Family History Unable to obtain at this time. Social History The pt does not drink or smoke. Physical Exam Vital Signs Vital Signs Date Time Temp Pulse Resp B/P Pulse Ox O2 Delivery O2 Flow Rate FiO2 08/01/16 12:00 98.8 82 18 117/62 96 08/01/16 09:00 98.5 86 18 120/62 95 08/01/16 08:19 84 16 106/55 97 08/01/16 07:05 16 97 Room Air 08/01/16 07:05 98.1 85 16 118/64 97 Room Air 08/01/16 07:05 85 16 97 Room Air 08/01/16 06:14 85 16 111/58 96 Room Air 08/01/16 03:45 98.9 86 16 132/65 98 Room Air 08/01/16 03:45 Room Air 08/01/16 00:20 78 16 116/69 97 07/31/16 23:10 Room Air 07/31/16 23:10 85 17 128/66 96 Room Air 07/31/16 22:00 86 16 118/69 99 Room Air 07/31/16 21:37 92 18 137/99 97 Room Air 07/31/16 20:15 97.8 93 17 134/61 96 Room Air 07/31/16 19:10 90 18 125/66 96 Room Air 07/31/16 19:10 Room Air 07/31/16 19:00 89 18 128/66 97 Room Air 07/31/16 18:30 16 Room Air 07/31/16 17:35 87 16 119/52 96 Room Air 07/31/16 16:30 65 16 Room Air 07/31/16 15:40 87 16 119/61 87 Room Air 07/31/16 14:40 85 16 114/51 98 Room Air 07/31/16 14:35 75 16 Room Air Physical Exam GENERAL: Well-developed well-nourished, in no apparent distress. SKIN: Warm and dry. HEAD: Atraumatic. Normocephalic. EYES: Pupils equal and round. No scleral icterus. No injection or drainage. ENT: No nasal bleeding or discharge. Mucous membranes pink and moist. NECK: Trachea midline. No JVD. CARDIOVASCULAR: Regular rate and rhythm. No murmur appreciated. RESPIRATORY: No accessory muscle use. Clear to auscultation. Breath sounds equal bilaterally. GASTROINTESTINAL: Abdomen soft, non-tender, nondistended. Hepatic and splenic margins not palpable. MUSCULOSKELETAL: No obvious deformities. No clubbing. No cyanosis. No edema. There is minimal tenderness about the left greater trochanter on the left hip. No bruising no laceration. NEUROLOGICAL: Awake and alert. No cranial nerves II through XII are grossly intact and nonfocal, 5 out of 5 strength in all 4 extremities. PSYCHIATRIC: Pleasantly confused. Laboratory Laboratory Tests Test 07/31/16 07/31/16 07/31/16 08/01/16 13:55 14:25 17:50 00:30 White Blood Count 10.8 Red Blood Count 3.68 Hemoglobin 10.4 Hematocrit 31.7 Mean Corpuscular Volume 86.1 Mean Corpuscular Hemoglobin 28.3 Mean Corpuscular Hemoglobin 32.8 Concent Red Cell Distribution Width 13.1 Platelet Count 409 Mean Platelet Volume 7.9 Neutrophils (%) (Auto) 74.8 Lymphocytes (%) (Auto) 12.0 Monocytes (%) (Auto) 11.0 Eosinophils (%) (Auto) 0.2 Basophils (%) (Auto) 2.0 Neutrophils # (Auto) 8.1 Lymphocytes # (Auto) 1.3 Monocytes # (Auto) 1.2 Eosinophils # (Auto) 0.0 Basophils # (Auto) 0.2 CBC Comment DIFF FINAL Differential Comment Prothrombin Time 60.5 Prothromb Time International 5.1 Ratio Activated Partial 55.9 Thromboplast Time Sodium Level 141 Potassium Level 4.1 Chloride Level 106 Carbon Dioxide Level 24.4 Anion Gap 11 Blood Urea Nitrogen 24 Creatinine 1.10 Estimat Glomerular Filtration 47 Rate Random Glucose 113 Calcium Level 8.2 Total Bilirubin 1.1 Aspartate Amino Transf 96 (AST/SGOT) Alanine Aminotransferase 27 (ALT/SGPT) Alkaline Phosphatase 59 Total Creatine Kinase 410 Creatine Kinase MB 62.0 Creatine Kinase MB % 15.1 Troponin I 16.10 15.50 9.01 B-Type Natriuretic Peptide 1271 Total Protein 6.0 Albumin 2.8 Urine Collection Type CATH Urine Color YELLOW Urine Turbidity SLIGHT Urine pH 5.5 Urine Specific [place] 1.022 Urine Protein 100 Urine Glucose (UA) NEG Urine Ketones TRACE Urine Occult Blood NEG Urine Nitrite NEG Urine Bilirubin NEG Urine Leukocyte Esterase NEG Urine WBC 6-8 Urine Squamous Epithelial 0-5 Cells Urine Transitional Epithelial Cells Urine Bacteria MANY Microscopic Urinalysis Comment CULTURE INDICATED Test 08/01/16 07:00 Prothrombin Time 62.3 Prothromb Time International 5.2 Ratio Date/Time Procedure Status Source Growth 07/31/16 14:25 Urine Culture - Preliminary Resulted Urine Catheterized Urine NO GROWTH IN 24 HOURS. Result Diagram: 07/31/16 1355 07/31/16 1355 Imaging Last Impressions Head CT 07/31/16 1315 Signed Impressions: Service Date/Time: Sunday, July 31, 2016 14:31 - CONCLUSION: Atrophy with moderate vascular calcifications, negative for acute process. Kamari Peoples MD FACR Chest X-Ray 07/31/16 1315 Signed Impressions: Service Date/Time: Sunday, July 31, 2016 13:26 - CONCLUSION: 1. Cardiomegaly and findings of congestive heart failure. Julio Sims MD Hip and Pelvis X-Ray 07/31/16 0000 Signed Impressions: Service Date/Time: Sunday, July 31, 2016 13:30 - CONCLUSION: Negative for fracture or dislocation. Followup in 7-10 days is suggested if symptoms persist. Kamari Peoples MD FACR Aorta CTA 07/31/16 0000 Signed Impressions: Service Date/Time: Sunday, July 31, 2016 17:05 - CONCLUSION: Extensive atherosclerotic vascular calcifications with no evidence of aneurysm . Degenerative findings of the lower lumbar spine. Moderate size retrocardiac hiatal hernia Andrey Warren MD Assessment and Plan Assessment and Plan NSTEMI The patient was found to have a troponin that peaked at 16.1. EKG with T-wave inversions in the lateral leads with some ST depression. She denies chest pain or shortness of breath. Chest x-ray with findings of CHF. Cardiology consult appreciated. - Continue cardiac regimen. Catheterization when stable. - telemetry. - check lipid profile, HgbA1c. CHF BNP markedly elevated. CXR consistent with CHF. Appears Euvolemic. - would obtain echo if cath not done. - continue cardiac regimen. - diuresis as needed. Supratherapeutic INR The pt is on Coumadin for history of CVA. She lives in an [facility] and has frequent falls. Head CT negative for bleed. - d/c Coumadin. - Vitamin K per cardiology. Dementia The pt is on Namenda. She has frequent falls and resides in an [facility]. - PT/OT/ case management consult. - continue Namenda. - outpt follow-up with neurology. Anemia Hemoglobin significantly lower than on previous admission. INR elevated as above. - hold Coumadin. - follow CBC and transfuse as needed. - check B12, folate, iron studies and Hemoccult. UTI UA mildly positive. - urine culture with no growth. Hold off on antibiotics and monitor. [place] Creatinine not far from baseline. - follow BMP and avoid nephrotoxins. PPx: INR elevated. Discussed Condition With Pt, nurse. Physician Certification 2 Midnight Certification Type: Admission for Inpatient Services Order for Inpatient Services The services are ordered in accordance with Medicare regulations or non- Medicare payer requirements, as applicable. In the case of services not specified as inpatient-only, they are appropriately provided as inpatient services in accordance with the 2-midnight benchmark. Estimated LOS (days): 2 days is the estimated time the patient will need to remain in the hospital, assuming treatment plan goals are met and no additional complications. Post-Hospital Plan: SNF Tramaine Easley DO Aug 01, 2016 14:03
--- NOTE | 2016-08-01 14:40 | EKG ---
Date Performed: 07/31/2016 Time Performed: 13:48:06 PTAGE: 86 years EKG: Sinus rhythm Inferior infarct - age undetermined Lateral ST-T changes may be due to myocardial ischemia Compared to the previous tracing, the patient has developed ekg changes with an acute inferior ST segment elev ation infarct with reciprocal ST segment change. Clinical correlation will be important. Abnormal ECG PREVIOUS TRACING : 02/27/2016 04.44 DOCTOR: Neisha Kerr Interpretating Date/Time 08/01/2016 14:39:04
--- NOTE | 2016-08-01 14:41 | EKG ---
Date Performed: 07/31/2016 Time Performed: 15:41:30 PTAGE: 86 years EKG: Sinus rhythm Inferior infarct - age undetermined Anterolateral ST-T changes are nonspecific Compared to the previ ous tracing, there has been progression of the inferior wall transmural wall injury and the ekg is c onsistent with progressive changes of an inferior ST segment elevation infarct Abnormal ECG PREVIOUS TRACING : 07/31/2016 13.48 DOCTOR: Neisha Kerr Interpretating Date/Time 08/01/2016 14:39:58
--- NOTE | 2016-08-01 14:43 | EKG ---
Date Performed: 08/01/2016 Time Performed: 06:05:40 PTAGE: 86 years EKG: Sinus rhythm Inferior infarct - age undetermined Anterolateral ST-T changes may be due to myocardial ischemia Ser ies of tracings show improvement in the inferior wall injury and improvement in the reciprocal ST seg ment changes consistent with possible reperfusion. Clinical correlation is important to assess the se [facility] ekgs Abnormal ECG PREVIOUS TRACING : 07/31/2016 19.35 DOCTOR: Neisha Kerr Interpretating Date/Time 08/01/2016 14:41:52
--- NOTE | 2016-08-01 14:43 | EKG ---
Date Performed: 08/01/2016 Time Performed: 00:11:48 PTAGE: 86 years EKG: Sinus rhythm Inferior infarct - age undetermined Anterolateral ST-T changes suggest myocardial injury/ischemia Co mpared to prior tracing no significant change Abnormal ECG PREVIOUS TRACING : 07/31/16 DOCTOR: Neisha Kerr Interpretating Date/Time 08/01/2016 14:40:46
[2016-08-01] MEDS ORDERED: PT OWN MED: NAMENDA XR 28MG PO DAILY PO SCH (16:00)
[2016-08-01 16:51] LABS: HEMOGLOBIN A1a 0.8 %; HEMOGLOBIN A1b 1.8 %; HEMOGLOBIN Ao 84.7 %; HEMOGLOBIN LA1C 2.6 %; HEMOGLOBIN P3 5.6 %
[2016-08-01 16:59] LABS: TRANSFERRIN IRON PROFILE 155 MG/DL (200-360)
[2016-08-01] MEDS: SENNOSIDES 8.6 MG TAB PO SCH (17:22)
[2016-08-01 17:24] LABS: FERRITIN 255 NG/ML (8-252); HDL CHOLESTEROL 41.9 MG/DL (40.0-60.0); LDL CHOLESTEROL 47 MG/DL (0-99)
[2016-08-01] MEDS: LATANOPROST 0.005% OPHT SOLN 2.5 ML BTL EACH EYE SCH (20:26)
[2016-08-01] MEDS: ATORVASTATIN 20 MG TAB PO SCH (20:26)
[2016-08-01] MEDS: FAMOTIDINE 20 MG TAB PO SCH (20:26)
[2016-08-01] MEDS ORDERED: TIMOLOL EACH EYE SCH (21:00)
[2016-08-01] MEDS ORDERED: SODIUM CHLORIDE 0.9% FLUSH 5 ML FLUSH IVF SCH (21:00)
[2016-08-01] MEDS ORDERED: BRIMONIDINE EACH EYE SCH (21:00)
[2016-08-02] VITALS (26 sets, daily range): BP systolic 96–132; BP diastolic 47–77; PULSE 8–155; RESP 18; TEMP 97.3–98.8; O2SAT 94–98
[2016-08-02] MEDS ORDERED: LORazepam 2 MG/ML VIAL IV PUSH ONE (04:45)
[2016-08-02] MEDS ORDERED: DILTIAZEM HCL 25 MG/5 ML VIAL IV ONE (06:00)
[2016-08-02 07:05] LABS: HEMATOCRIT 29.1 % (35.0-46.0); MEAN CELL VOLUME 86.4 FL (80.0-100.0); MEAN CORPUSCULAR HEMOGLOBIN 29.7 PG (27.0-34.0); MEAN CORPUSCULAR HGB CONC 34.4 % (32.0-36.0); PLATELET COUNT 418 TH/MM3 (150-450); RED BLOOD COUNT 3.37 MIL/MM3 (4.00-5.30); RED CELL DISTRIBUTION WIDTH 14.4 % (11.6-17.2); REVIEW FLAG FINAL; WHITE BLOOD COUNT 10.5 TH/MM3 (4.0-11.0)
[2016-08-02] MEDS: POLYETHYLENE GLYCOL 17 GM PKG PO SCH (07:20)
[2016-08-02] MEDS: SENNOSIDES 8.6 MG TAB PO SCH (07:20)
[2016-08-02] MEDS: FAMOTIDINE 20 MG TAB PO SCH ×2 (07:20→20:38)
[2016-08-02] MEDS: ASPIRIN EC 81 MG TABEC PO SCH (07:21)
[2016-08-02] MEDS: MULTIVITAMINS/MINERALS THERAPEUTIC TAB PO SCH (07:21)
[2016-08-02] MEDS: SODIUM CHLORIDE 0.9% FLUSH 5 ML FLUSH FLUSH SCH ×2 (07:21→20:38)
[2016-08-02] MEDS: METOPROLOL TARTRATE 25 MG TAB PO SCH ×2 (07:21→20:37)
[2016-08-02 07:31] LABS: BICARBONATE 21.8 MEQ/L (21.0-32.0); MAGNESIUM 2.2 MG/DL (1.5-2.5); POTASSIUM 3.7 MEQ/L (3.5-5.1)
[2016-08-02] MEDS ORDERED: DILTIAZEM 125 MG/NS 100 ML IV SCH ×2 (08:30)
--- NOTE | 2016-08-02 08:43 | PD.CARD.PN ---
Subjective Subjective Remarks still confused went into afib RVR this am Objective Medications Active Medications Aspirin (Aspirin Chew) 81 mg DAILY PO; Start 08/02/16 at 09:00; Stop 08/02/16 at 09:00; Status DC Aspirin (Aspirin) 325 mg DAILY PO; Start 08/01/16 at 09:00; Stop 08/01/16 at 10: 30; Status DC Aspirin (Ecotrin Ec) 81 mg DAILY PO Last administered on 08/02/16 07:21; Admin Dose 81 MG; Start 08/02/16 at 09:00 Atorvastatin Calcium (Lipitor) 20 mg HS PO Last administered on 08/01/16 20:26 ; Admin Dose 20 MG; Start 08/01/16 at 21:00 Bacitracin (Bacitracin Oint Packet) 0.9 gm ONCE ONCE TOP; Start 08/01/16 at 11: 00; Stop 08/01/16 at 11:23; Status DC Bivalirudin/ Sodium Chloride (Angiomax Inj/NS Inj) 50 ml @ 0 mls/hr Q0M IV; Start 08/01/16 at 09:49; Stop 08/01/16 at 11:23; Status DC Diltiazem HCl 10 mg 10 mg ONCE ONCE IV Last administered on 08/02/16 06:10; Admin Dose 10 MG; Start 08/02/16 at 06:00; Stop 08/02/16 at 06:05; Status DC Diltiazem HCl/ Sodium Chloride (Cardizem Inj/NS Inj) 125 ml @ 0 mls/hr TITRATE IV; Start 08/02/16 at 08:30 Famotidine (Pepcid) 10 mg BID PO Last administered on 08/02/16 07:20; Admin Dose 10 MG; Start 08/01/16 at 21:00 IV Flush (NS Flush) 2 ml BID IVF; Start 08/01/16 at 21:00; Stop 08/01/16 at 21: 00; Status DC Latanoprost 1 drop 1 drop HS EACH EYE Last administered on 08/01/16 20:26; Admin Dose 1 DROP; Start 08/01/16 at 21:00 Lorazepam (Ativan Inj) 0.5 mg ONCE ONCE IV PUSH Last administered on 08/02/16 04:47; Admin Dose 0.5 MG; Start 08/02/16 at 04:45; Stop 08/02/16 at 04:46; Status DC Metoprolol Tartrate (Lopressor) 12.5 mg Q12HR PO Last administered on 08/02/16 07:21; Admin Dose 12.5 MG; Start 08/01/16 at 21:00 Miscellaneous (Pill Splitter) 1 ea UNSCH PRN OTHER; Start 08/01/16 at 10:30 Miscellaneous Information 1 1 ONCE ONCE XX; Start 08/01/16 at 10:00; Stop 08/01 at 11:23; Status DC Morphine Sulfate (Morphine Inj) 2 mg Q30M PRN IV PUSH; Start 08/01/16 at 10:00 ; Stop 08/01/16 at 11:23; Status DC Multivitamins/ Minerals Therapeutic (Theragran M Tab) 1 tab DAILY PO Last administered on 08/02/16 07:21; Admin Dose 1 TAB; Start 08/02/16 at 09:00 Patient Own Medication PT OWN MED: COMBI... Q12HR EACH EYE; Start 08/01/16 at 21 :00; Status Hold Patient Own Medication PT OWN MED: NAMENDA... DAILY PO; Start 08/01/16 at 16:00 ; Status Hold Phytonadione (Mephyton) 5 mg ONCE ONCE PO Last administered on 08/01/16 12:58 ; Admin Dose 5 MG; Start 08/01/16 at 11:45; Stop 08/01/16 at 11:46; Status DC Polyethylene Glycol (Miralax) 17 gm DAILY PO Last administered on 08/02/16 07:20 ; Admin Dose 17 GM; Start 08/02/16 at 09:00 Prasugrel (Effient) 10 mg DAILY PO; Start 08/02/16 at 09:00; Stop 08/02/16 at 09: 00; Status DC Prasugrel (Effient) 60 mg NOW ONCE PO; Start 08/01/16 at 10:30; Stop 08/01/16 at 11:23; Status DC Sennosides (Senokot) 17.2 mg DAILY PO Last administered on 08/02/16 07:20; Admin Dose 17.2 MG; Start 08/01/16 at 16:00 Sodium Chloride (1/2 NS 1000 ml Inj) 1,000 ml @ 75 mls/hr [id number] IV; Start at 14:00; Stop 08/01/16 at 14:09; Status DC Vital Signs / I&O Vital Signs Date Time Temp Pulse Resp B/P Pulse Ox O2 Delivery O2 Flow Rate FiO2 08/02/16 06:40 103/66 08/02/16 06:15 125 18 97/47 96 08/02/16 06:10 145 112/71 08/02/16 06:00 155 08/02/16 05:00 150 08/02/16 04:05 105 08/02/16 04:00 98.4 108 18 132/69 96 08/02/16 03:00 89 08/02/16 01:00 92 08/02/16 00:00 98.8 90 18 129/77 98 08/02/16 00:00 82 08/01/16 23:00 90 08/01/16 22:00 89 08/01/16 21:00 90 08/01/16 20:00 83 08/01/16 20:00 98.4 85 18 116/57 96 08/01/16 19:00 89 08/01/16 17:00 99 08/01/16 16:00 98.8 95 18 115/72 97 08/01/16 15:00 95 08/01/16 14:00 91 08/01/16 12:00 98.8 82 18 117/62 96 08/01/16 12:00 84 08/01/16 09:00 98.5 86 18 120/62 95 I/O 08/01/16 08/01/16 08/01/16 08/02/16 08/02/16 08/02/16 07:00 15:00 23:00 07:00 15:00 23:00 Intake Total 120 ml 100 ml 125 ml Output Total 1400 ml 300 ml 250 ml Balance -1280 ml -200 ml -125 ml Intake Oral 120 ml 100 ml 125 ml Output Urine Total 1400 ml 300 ml 250 ml Bladder Scan Volume Amount 980 ml # Bowel Movements 2 Physical Exam NECK: Supple, trachea midline. No JVD or lymphadenopathy. CARDIOVASCULAR: IR IR RESPIRATORY: Breath sounds equal bilaterally. No accessory muscle use. GASTROINTESTINAL: Abdomen soft, non-tender, nondistended. MUSCULOSKELETAL: No cyanosis, or edema. BACK: Nontender without obvious deformity. No CVA tenderness. Laboratory Laboratory Tests Test 08/01/16 08/02/16 15:16 06:10 Hemoglobin A1c 5.4 % Iron Level 45 MCG/DL Total Iron Binding Capacity 217 MCG/DL Percent Iron Saturation 20.7 % Ferritin 255 NG/ML Triglycerides Level 124 MG/DL Cholesterol Level 114 MG/DL LDL Cholesterol 47 MG/DL HDL Cholesterol 41.9 MG/DL Cholesterol/HDL Ratio 2.72 RATIO Vitamin B12 Level 340 PG/ML Folate GREATER THAN 20.0 NG/ML White Blood Count 10.5 TH/MM3 Red Blood Count 3.37 MIL/MM3 Hemoglobin 10.0 GM/DL Hematocrit 29.1 % Mean Corpuscular Volume 86.4 FL Mean Corpuscular Hemoglobin 29.7 PG Mean Corpuscular Hemoglobin 34.4 % Concent Red Cell Distribution Width 14.4 % Platelet Count 418 TH/MM3 Mean Platelet Volume 8.1 FL Sodium Level 139 MEQ/L Potassium Level 3.7 MEQ/L Chloride Level 108 MEQ/L Carbon Dioxide Level 21.8 MEQ/L Anion Gap 9 MEQ/L Blood Urea Nitrogen 34 MG/DL Creatinine 0.95 MG/DL Estimat Glomerular Filtration 56 ML/MIN Rate Random Glucose 117 MG/DL Calcium Level 7.9 MG/DL Magnesium Level 2.2 MG/DL Imaging Last Impressions Head CT 07/31/16 1315 Signed Impressions: Service Date/Time: Sunday, July 31, 2016 14:31 - CONCLUSION: Atrophy with moderate vascular calcifications, negative for acute process. Kamari Peoples MD FACR Chest X-Ray 07/31/16 1315 Signed Impressions: Service Date/Time: Sunday, July 31, 2016 13:26 - CONCLUSION: 1. Cardiomegaly and findings of congestive heart failure. Julio Sims MD Hip and Pelvis X-Ray 07/31/16 0000 Signed Impressions: Service Date/Time: Sunday, July 31, 2016 13:30 - CONCLUSION: Negative for fracture or dislocation. Followup in 7-10 days is suggested if symptoms persist. Kamari Peoples MD FACR Aorta CTA 07/31/16 0000 Signed Impressions: Service Date/Time: Sunday, July 31, 2016 17:05 - CONCLUSION: Extensive atherosclerotic vascular calcifications with no evidence of aneurysm . Degenerative findings of the lower lumbar spine. Moderate size retrocardiac hiatal hernia Andrey Warren MD Assessment and Plan Problem List: (1) NSTEMI (non-ST elevated myocardial infarction) (2) Hypertension (3) Hyperlipidemia Assessment and Plan NSTEMI - currently CP free. asa statin bb. Will eventually need probable LHC but need to resolve mental status changes afib - RVR. BP won't tolerate titration of meds. start digoxin. follow levels. Tj Delgado MD Aug 02, 2016 08:43
[2016-08-02] MEDS ORDERED: ASPIRIN 81 MG CHEW TAB PO SCH (09:00)
[2016-08-02] MEDS ORDERED: PRASUGREL 10 MG TAB PO SCH (09:00)
[2016-08-02] MEDS ORDERED: POTASSIUM CHLORIDE 10 MEQ CONTROLLED RELEASE TAB PO ONE (09:45)
[2016-08-02] MEDS ORDERED: POTASSIUM CHLORIDE 25 MEQ EFFERVESCENT TAB PO ONE (09:45)
--- NOTE | 2016-08-02 09:57 | HHI.PR ---
Subjective Remarks The patient was resting in bed comfortably. She was confused as to where she was and why she was here. She had no acute complaints. Discussed with nursing. Objective Vitals Vital Signs Date Time Temp Pulse Resp B/P Pulse Ox O2 Delivery O2 Flow Rate FiO2 08/02/16 06:40 103/66 08/02/16 06:15 125 18 97/47 96 08/02/16 06:10 145 112/71 08/02/16 06:00 155 08/02/16 05:00 150 08/02/16 04:05 105 08/02/16 04:00 98.4 108 18 132/69 96 08/02/16 03:00 89 08/02/16 01:00 92 08/02/16 00:00 98.8 90 18 129/77 98 08/02/16 00:00 82 08/01/16 23:00 90 08/01/16 22:00 89 08/01/16 21:00 90 08/01/16 20:00 83 08/01/16 20:00 98.4 85 18 116/57 96 08/01/16 19:00 89 08/01/16 17:00 99 08/01/16 16:00 98.8 95 18 115/72 97 08/01/16 15:00 95 08/01/16 14:00 91 08/01/16 12:00 98.8 82 18 117/62 96 08/01/16 12:00 84 I/O 08/01/16 08/01/16 08/01/16 08/02/16 08/02/16 08/02/16 07:00 15:00 23:00 07:00 15:00 23:00 Intake Total 120 ml 100 ml 125 ml Output Total 1400 ml 300 ml 250 ml Balance -1280 ml -200 ml -125 ml Intake Oral 120 ml 100 ml 125 ml Output Urine Total 1400 ml 300 ml 250 ml Bladder Scan Volume Amount 980 ml # Bowel Movements 2 Result Diagram: 08/02/1610 08/02/16609 Imaging Last Impressions Head CT 07/31/165 Signed Impressions: Service Date/Time: Sunday, July 31, 2016 14:31 - CONCLUSION: Atrophy with moderate vascular calcifications, negative for acute process. Kamari Peoples MD FACR Chest X-Ray 07/31/16 1315 Signed Impressions: Service Date/Time: Sunday, July 31, 2016 13:26 - CONCLUSION: 1. Cardiomegaly and findings of congestive heart failure. Julio Sims MD Hip and Pelvis X-Ray 07/31/16 0000 Signed Impressions: Service Date/Time: Sunday, July 31, 2016 13:30 - CONCLUSION: Negative for fracture or dislocation. Followup in 7-10 days is suggested if symptoms persist. Kamari Peoples MD FACR Aorta CTA 07/31/16 0000 Signed Impressions: Service Date/Time: Sunday, July 31, 2016 17:05 - CONCLUSION: Extensive atherosclerotic vascular calcifications with no evidence of aneurysm . Degenerative findings of the lower lumbar spine. Moderate size retrocardiac hiatal hernia Andrey Warren MD Objective Remarks GENERAL: Well-developed well-nourished, in no apparent distress. SKIN: Warm and dry. HEAD: Atraumatic. Normocephalic. EYES: Pupils equal and round. No scleral icterus. No injection or drainage. ENT: No nasal bleeding or discharge. Mucous membranes pink and moist. NECK: Trachea midline. No JVD. CARDIOVASCULAR: Tachycardic, irregularly irregular rhythm. RESPIRATORY: No accessory muscle use. Clear to auscultation. Breath sounds equal bilaterally. GASTROINTESTINAL: Abdomen soft, slight tenderness to palpation, nondistended. Hepatic and splenic margins not palpable. MUSCULOSKELETAL: No obvious deformities. No clubbing. No cyanosis. No edema. There is minimal tenderness about the left greater trochanter on the left hip. No bruising no laceration. NEUROLOGICAL: Awake and alert. No cranial nerves II through XII are grossly intact and nonfocal, 5 out of 5 strength in all 4 extremities. PSYCHIATRIC: Pleasantly confused. Medications and IVs Current Medications Medications (Trade) Dose Ordered Sig/Alfreda Route Start Time Stop Time Status Last Admin (NS Flush) 2 ml UNSCH PRN FLUSH 07/31/16 18:30 08/02/16 04:48 (NS Flush) 2 ml BID FLUSH 07/31/16 21:00 08/02/16 07:21 (Zofran Inj) 4 mg Q6H PRN IVP 07/31/16 18:30 (Narcan Inj) 0.4 mg UNSCH PRN IV 07/31/16 18:30 (Nitrostat Sl) 0.4 mg Q5M PRN SL 07/31/16 18:30 (Lopressor) 12.5 mg Q12HR PO 08/01/16 21:00 08/02/16 07:21 (Pill Splitter) 1 ea UNSCH PRN OTHER 08/01/16 10:30 (Lipitor) 20 mg HS PO 08/01/16 21:00 08/01/16 20:26 (Ecotrin Ec) 81 mg DAILY PO 08/02/16 09:00 08/02/16 07:21 (Theragran M Tab) 1 tab DAILY PO 08/02/16 09:00 08/02/16 07:21 (Miralax) 17 gm DAILY PO 08/02/16 09:00 08/02/16 07:20 (Pepcid) 10 mg BID PO 08/01/16 21:00 08/02/16 07:20 Patient Own Medication PT OWN MED: COMBI... Q12HR EACH EYE 08/01/16 21:00 Hold Patient Own Medication PT OWN MED: NAMENDA... DAILY PO 08/01/16 16:00 Hold (Xalatan 0.005% Opth Soln) 1 drop HS EACH EYE 08/01/16 21:00 08/01/16 20:26 Sennosides 17.2 mg 17.2 mg DAILY PO 08/01/16 16:00 08/02/16 07:20 (Cardizem Inj/NS Inj) 125 ml @ 0 mls/hr TITRATE IV 08/02/16 08:30 08/02/16 08:40 (Lanoxin Inj) 0.25 mg Q6H IVS 08/02/16 14:45 08/02/16 20:46 (Lanoxin) 0.125 mg DAILY PO 08/03/16 09:00 (K-Lyte Cl Eff) 25 meq ONCE ONCE PO 08/02/16 09:45 08/02/16 09:46 A/P Assessment and Plan NSTEMI The patient was found to have a troponin that peaked at 16.1. EKG with T-wave inversions in the lateral leads with some ST depression. She denies chest pain or shortness of breath. Chest x-ray with findings of CHF. Cardiology consult appreciated. LDL 47. - Continue cardiac regimen. Catheterization when stable. - telemetry. A fib with RVR The pt went into A fib with RVR. She was started on a diltiazem gtt. - continue diltiazem gtt and Lopressor. - digoxin per cardiology. - telemetry. CHF BNP markedly elevated. CXR consistent with CHF. Appears Euvolemic. - would obtain echo if cath not done. - continue cardiac regimen. - diurese as needed. Supratherapeutic INR The pt is on Coumadin for history of CVA. She lives in an [facility] and has frequent falls. Head CT negative for bleed. - d/c Coumadin. - Vitamin K per cardiology. - follow INR. Dementia The pt is on Namenda. She has frequent falls and resides in an [facility]. - PT/OT/ case management consult. - continue Namenda. - outpt follow-up with neurology. Anemia Hemoglobin significantly lower than on previous admission. INR elevated as above. B12, folate and iron studies noted. - hold Coumadin. - follow CBC and transfuse as needed. - check Hemoccult. UTI UA mildly positive. - urine culture with no growth. Hold off on antibiotics and monitor. HUDSON Creatinine not far from baseline. Improved 2. - follow BMP and avoid nephrotoxins. PPx: INR elevated. Discharge Planning Awaiting further cardiology evaluation. Tramaine Easley DO Aug 02, 2016 09:57
[2016-08-02 12:40] LABS: INTERNATIONAL NORMALIZED RATIO 1.6 RATIO; PROTHROMBIN TIME - PATIENT 18.6 SEC (9.8-11.6)
[2016-08-02] MEDS: DIGOXIN 0.5 MG/2 ML VIAL IVS SCH ×2 (14:45→20:40)
[2016-08-02] MEDS: ATORVASTATIN 20 MG TAB PO SCH (20:37)
[2016-08-02] MEDS: LATANOPROST 0.005% OPHT SOLN 2.5 ML BTL EACH EYE SCH (20:37)
[2016-08-02] MEDS: QUEtiapine FUMARATE 25 MG TAB PO SCH (20:38)
[2016-08-03] VITALS (23 sets, daily range): BP systolic 103–153; BP diastolic 47–87; PULSE 49–96; RESP 16–18; TEMP 97.1–99.5; O2SAT 92–98
--- NOTE | 2016-08-03 08:10 | PD.CARD.PN ---
Subjective Subjective Remarks c/o sore throat (Aquiles Jasso) Objective Vital Signs / I&O Vital Signs Date Time Temp Pulse Resp B/P Pulse Ox O2 Delivery O2 Flow Rate FiO2 08/03/16 05:00 72 08/03/16 04:00 73 08/03/16 04:00 97.8 73 18 135/55 96 08/03/16 03:00 76 08/03/16 02:00 70 08/03/16 01:00 72 08/03/16 00:00 97.8 77 18 103/47 95 08/03/16 00:00 73 08/02/16 23:00 71 08/02/16 22:00 70 08/02/16 21:00 79 08/02/16 20:00 97.6 75 18 107/50 95 08/02/16 20:00 82 08/02/16 19:00 76 08/02/16 18:19 78 08/02/16 17:00 80 08/02/16 16:51 84 08/02/16 15:11 75 08/02/16 15:11 97.8 75 18 106/54 95 08/02/16 14:23 89 08/02/16 13:03 78 08/02/16 12:00 77 08/02/16 11:15 72 08/02/16 11:15 97.6 75 18 96/52 94 08/02/16 10:21 83 08/02/16 09:00 148 08/02/16 08:30 150 08/02/16 08:30 97.3 143 18 109/60 97 I/O 08/02/16 08/02/16 08/02/16 08/03/16 08/03/16 08/03/16 07:00 15:00 23:00 07:00 15:00 23:00 Intake Total 125 ml 480 ml 125 ml Output Total 250 ml 650 ml 275 ml Balance -125 ml -170 ml -150 ml Intake Oral 125 ml 480 ml 125 ml Output Urine Total 250 ml 650 ml 275 ml # Bowel Movements 1 Physical Exam GENERAL: Well-nourished, well-developed patient in no apparent distress. NECK: No JVD. No carotid bruit. CARDIOVASCULAR: Regular rate and rhythm. S1/S2 no murmur, rub, or gallop. RESPIRATORY: No accessory muscle use. Clear to auscultation. Breath sounds equal bilaterally. GASTROINTESTINAL: Abdomen soft, non-tender, nondistended. MUSCULOSKELETAL: Extremities without clubbing, cyanosis, or edema. Laboratory Laboratory Tests Test 08/02/16 08/03/16 12:07 06:15 Prothrombin Time 18.6 SEC Prothromb Time International 1.6 RATIO Ratio Digoxin Level 0.7 NG/ML (Aquiles Jasso) Assessment and Plan Problem List: (1) NSTEMI (non-ST elevated myocardial infarction) (2) Hypertension (3) Hyperlipidemia (4) Paroxysmal a-fib Assessment and Plan NSTEMI - currently CP free. asa statin bb. Will eventually need probable LHC but need to resolve mental status changes afib - RVR. now medically converted to SR (Aquiles Jasso) Assessment and Plan still confused pt reluctant for LHC cont med mgt back in NSR over next 24-48 hrs, we will need to decide if she is candidate for LHC and if she is agreeable. still need further improvement in mental status (Tj Delgado MD) Aquiles Jasso Aug 03, 2016 08:10 Tj Delgado MD Aug 03, 2016 10:46
[2016-08-03] MEDS: MULTIVITAMINS/MINERALS THERAPEUTIC TAB PO SCH (09:16)
[2016-08-03] MEDS: SENNOSIDES 8.6 MG TAB PO SCH (09:16)
[2016-08-03] MEDS: FAMOTIDINE 20 MG TAB PO SCH ×2 (09:17→21:46)
[2016-08-03] MEDS: DIGOXIN 0.125 MG TAB PO SCH (09:17)
[2016-08-03] MEDS: ASPIRIN EC 81 MG TABEC PO SCH (09:17)
[2016-08-03] MEDS: METOPROLOL TARTRATE 25 MG TAB PO SCH ×2 (09:17→21:47)
[2016-08-03] MEDS: SODIUM CHLORIDE 0.9% FLUSH 5 ML FLUSH FLUSH SCH ×2 (09:18→21:54)
[2016-08-03] MEDS: POLYETHYLENE GLYCOL 17 GM PKG PO SCH (09:18)
--- NOTE | 2016-08-03 10:51 | HHI.PR ---
Subjective Remarks The pt was resting in bed. She had family at the bedside. Cardiology also at the bedside. The pt complained of a headache and requested a cup of coffee. Objective Vitals Vital Signs Date Time Temp Pulse Resp B/P Pulse Ox O2 Delivery O2 Flow Rate FiO2 08/03/16 10:00 81 08/03/16 09:00 82 08/03/16 08:00 84 08/03/16 07:00 49 08/03/16 07:00 98.8 80 18 135/68 97 08/03/16 05:00 72 08/03/16 04:00 73 08/03/16 04:00 97.8 73 18 135/55 96 08/03/16 03:00 76 08/03/16 02:00 70 08/03/16 01:00 72 08/03/16 00:00 97.8 77 18 103/47 95 08/03/16 00:00 73 08/02/16 23:00 71 08/02/16 22:00 70 08/02/16 21:00 79 08/02/16 20:00 97.6 75 18 107/50 95 08/02/16 20:00 82 08/02/16 19:00 76 08/02/16 18:19 78 08/02/16 17:00 80 08/02/16 16:51 84 08/02/16 15:11 75 08/02/16 15:11 97.8 75 18 106/54 95 08/02/16 14:23 89 08/02/16 13:03 78 08/02/16 12:00 77 08/02/16 11:15 72 08/02/16 11:15 97.6 75 18 96/52 94 I/O 08/02/16 08/02/16 08/02/16 08/03/16 08/03/16 08/03/16 07:00 15:00 23:00 07:00 15:00 23:00 Intake Total 125 ml 480 ml 125 ml Output Total 250 ml 650 ml 275 ml Balance -125 ml -170 ml -150 ml Intake Oral 125 ml 480 ml 125 ml Output Urine Total 250 ml 650 ml 275 ml # Bowel Movements 1 Result Diagram: 08/02/16 0610 08/02/16 0610 Imaging Last Impressions Head CT 07/31/16 1315 Signed Impressions: Service Date/Time: Sunday, July 31, 2016 14:31 - CONCLUSION: Atrophy with moderate vascular calcifications, negative for acute process. Kamari Peoples MD FACR Chest X-Ray 07/31/16 1315 Signed Impressions: Service Date/Time: Sunday, July 31, 2016 13:26 - CONCLUSION: 1. Cardiomegaly and findings of congestive heart failure. Julio Sims MD Hip and Pelvis X-Ray 07/31/16 0000 Signed Impressions: Service Date/Time: Sunday, July 31, 2016 13:30 - CONCLUSION: Negative for fracture or dislocation. Followup in 7-10 days is suggested if symptoms persist. Kamari Peoples MD FACR Aorta CTA 07/31/16 0000 Signed Impressions: Service Date/Time: Sunday, July 31, 2016 17:05 - CONCLUSION: Extensive atherosclerotic vascular calcifications with no evidence of aneurysm . Degenerative findings of the lower lumbar spine. Moderate size retrocardiac hiatal hernia Andrey Warren MD Objective Remarks GENERAL: Well-developed well-nourished, in no apparent distress. SKIN: Warm and dry. HEAD: Atraumatic. Normocephalic. EYES: Pupils equal and round. No scleral icterus. No injection or drainage. ENT: No nasal bleeding or discharge. Mucous membranes pink and moist. NECK: Trachea midline. No JVD. CARDIOVASCULAR: Regular rate and rhythm, no murmurs. RESPIRATORY: No accessory muscle use. Clear to auscultation. Breath sounds equal bilaterally. GASTROINTESTINAL: Abdomen soft, slight tenderness to palpation, nondistended. Hepatic and splenic margins not palpable. MUSCULOSKELETAL: No obvious deformities. No clubbing. No cyanosis. No edema. There is minimal tenderness about the left greater trochanter on the left hip. No bruising no laceration. NEUROLOGICAL: Awake and alert. No cranial nerves II through XII are grossly intact and nonfocal, 5 out of 5 strength in all 4 extremities. PSYCHIATRIC: Pleasantly confused. Medications and IVs Current Medications Medications (Trade) Dose Ordered Sig/Alfreda Route Start Time Stop Time Status Last Admin (NS Flush) 2 ml UNSCH PRN FLUSH 07/31/16 18:30 08/02/16 04:48 (NS Flush) 2 ml BID FLUSH 07/31/16 21:00 08/03/16 09:18 (Narcan Inj) 0.4 mg UNSCH PRN IV 07/31/16 18:30 (Nitrostat Sl) 0.4 mg Q5M PRN SL 07/31/16 18:30 (Lopressor) 12.5 mg Q12HR PO 08/01/16 21:00 08/03/16 09:17 (Pill Splitter) 1 ea UNSCH PRN OTHER 08/01/16 10:30 (Lipitor) 20 mg HS PO 08/01/16 21:00 08/02/16 20:37 (Ecotrin Ec) 81 mg DAILY PO 08/02/16 09:00 08/03/16 09:17 (Theragran M Tab) 1 tab DAILY PO 08/02/16 09:00 08/03/16 09:16 (Miralax) 17 gm DAILY PO 08/02/16 09:00 08/03/16 09:18 (Pepcid) 10 mg BID PO 08/01/16 21:00 08/03/16 09:17 Patient Own Medication PT OWN MED: COMBI... Q12HR EACH EYE 08/01/16 21:00 Hold Patient Own Medication PT OWN MED: NAMENDA... DAILY PO 08/01/16 16:00 Hold (Xalatan 0.005% Opth Soln) 1 drop HS EACH EYE 08/01/16 21:00 08/02/16 20:37 Sennosides 17.2 mg 17.2 mg DAILY PO 08/01/16 16:00 08/03/16 09:16 (Cardizem Inj/NS Inj) 125 ml @ 0 mls/hr TITRATE IV 08/02/16 08:30 08/02/16 08:40 (Lanoxin) 0.125 mg DAILY PO 08/03/16 09:00 08/03/16 09:17 (SEROquel) 25 mg HS PO 08/02/16 21:00 08/02/16 20:38 A/P Assessment and Plan NSTEMI The patient was found to have a troponin that peaked at 16.1. EKG with T-wave inversions in the lateral leads with some ST depression. She denies chest pain or shortness of breath. Chest x-ray with findings of CHF. Cardiology consult appreciated. LDL 47. - Continue cardiac regimen. Catheterization when stable. Possibly in AM. - telemetry. A fib with RVR The pt went into A fib with RVR. She was started on a diltiazem gtt. - continue Lopressor and digoxin per cardiology. - wean off diltiazem gtt. - telemetry. CHF BNP markedly elevated. CXR consistent with CHF. Appears Euvolemic. - would obtain echo if cath not done. - continue cardiac regimen. - diurese as needed. Supratherapeutic INR The pt is on Coumadin for history of CVA. She lives in an [facility] and has frequent falls. Head CT negative for bleed. - d/c Coumadin. - Vitamin K per cardiology. - follow INR. 1.6 2/. Dementia The pt is on Namenda. She has frequent falls and resides in an [facility]. - PT/OT/ case management consult. - continue Namenda. - outpt follow-up with neurology. Anemia Hemoglobin significantly lower than on previous admission. INR elevated as above. B12, folate and iron studies noted. - hold Coumadin. - follow CBC and transfuse as needed. - check Hemoccult. UTI Urine culture with no growth. - no antibiotics indicated. HU[place] Creatinine not far from baseline. Stable /. - follow BMP and avoid nephrotoxins. PPx: Lovenox. Discharge Planning Awaiting further cardiology evaluation. Tramaine Easley DO Aug 03, 2016 10:51
[2016-08-03] MEDS: ENOXAPARIN SODIUM 30 MG/0.3 ML SYRINGE SQ SCH (11:07)
[2016-08-03] MEDS: FERROUS SULFATE 325 MG (65 MG ELEMENTAL IRON) TAB PO SCH (11:07)
--- NOTE | 2016-08-03 16:42 | EC ---
Study Study Date:08/03/2016 STUDY CONCLUSIONS SUMMARY - Left ventricle: The cavity size was dilated. Wall thickness was normal. Systolic function was moderately reduced by visual assessment. The estimated ejection fraction was in the range of 35% to 40%. Akinesis of the anteroseptal, anterior, and apical myocardium. Doppler parameters are consistent with abnormal left ventricular relaxation (grade 1 diastolic dysfunction). - Aortic valve: Valve area: 2.62cm^2 (Vmax). - Mitral valve: Moderately calcified annulus. Transvalvular velocity was minimally increased. The findings are consistent with mild stenosis. Mild regurgitation. - Tricuspid valve: Mild regurgitation. - Pulmonary arteries: PA peak pressure: 34mm Hg (S). - Pericardium, extracardiac: A small pericardial effusion was identified. There was no evidence of hemodynamic compromise. If LV function is below 40, please consider prescribing an ACEI or ARB or document rationale for non-use. PROCEDURE DATA STUDY STATUS: Elective. Procedure: Transthoracic echocardiography. Image quality was good. Scanning was performed from the parasternal, apical, and subcostal acoustic windows. Study completion: The patient tolerated the procedure well. Transthoracic echocardiography. M-mode, complete 2D, complete spectral Doppler, and color Doppler. Height: Height: 48in. Weight: Weight: 120.7lb. Body mass index: BMI: 36.9kg/m^2. Body surface area: BSA: 1.28m^2. Patient status: Inpatient. CARDIAC ANATOMY LEFT VENTRICLE: Not well visualized. The cavity size was dilated. Wall thickness was normal. Systolic function was moderately reduced by visual assessment. The estimated ejection fraction was in the range of 35% to 40%. Regional wall motion abnormalities: Akinesis of the anteroseptal, anterior, and apical myocardium. Doppler parameters are consistent with abnormal left ventricular relaxation (grade 1 diastolic dysfunction). AORTIC VALVE: Trileaflet; normal thickness, mildly calcified leaflets. Doppler: Transvalvular velocity was within the normal range. There was no stenosis. No regurgitation. Valve area: 2.62cm^2 (Vmax). Indexed valve area: 2.05cm^2/m^2 (Vmax). AORTA: Aortic root: The aortic root was normal in size. MITRAL VALVE: Moderately calcified annulus. Doppler: Transvalvular velocity was minimally increased. The findings are consistent with mild stenosis. Mild regurgitation. Valve area by pressure half-time: 3.14cm^2. Indexed valve area by pressure half-time: 2.45cm^2/m^2. Mean gradient: 4mm Hg (D). Peak gradient: 8mm Hg (D). LEFT ATRIUM: The atrium was at the upper limits of normal in size. RIGHT VENTRICLE: The cavity size was normal. Wall thickness was normal. PULMONIC VALVE: Doppler: Transvalvular velocity was within the normal range. There was no evidence for stenosis. No regurgitation. TRICUSPID VALVE: Structurally normal valve. Doppler: Transvalvular velocity was within the normal range. Mild regurgitation. PULMONARY ARTERY: The main pulmonary artery was normal-sized. Systolic pressure was within the normal range. RIGHT ATRIUM: The atrium was normal in size. PERICARDIUM: A small pericardial effusion was identified. There was no evidence of hemodynamic compromise. SYSTEMIC VEINS: Inferior vena cava: The vessel was normal in size. Patient weight: 120.7lb _Ejection fraction:_ 65-75% _Fractional shortening:_ 32% up to 5Kg 5-11.5Kg 11.6-22.9Kg 23-45Kg 45-57Kg Aortic Root 7-13 <17 13-22 17-27 17-27 LA diam 6-13 <23 24-38 33-47 37-40 RVID 10-17 7-15 7-15 7-18 8-17 LVIDd 12-22 <32 24-38 33-47 37-40 LVPW 2-4 3-6 5-7 6-8 7-8 IVS 2-4 3-6 5-7 6-8 7-8 BASIC MEASUREMENTS ADULT NORMAL Left ventricle LV internal dimension, ED, chordal *54 mm 43-52 level, PLAX LV internal dimension, ES, chordal *44.6 mm 23-38 level, PLAX Fractional shortening, chordal level, *17 % >29 PLAX LV posterior wall thickness, ED 6.62 mm IVS/LVPW ratio, ED *1.34 <1.3 Volume, ED, MOD, 1-plane 66 ml Volume, ES, MOD, 1-plane 28 ml Ejection fraction, MOD, 1-plane 58 % Stroke volume, MOD, 1-plane 38 ml Volume index, ED, MOD, 1-plane 52 ml/m^2 Volume index, ES, MOD, 1-plane 22 ml/m^2 Stroke index, MOD, 1-plane 29.7 ml/m^2 Volume, ED, MOD, 2-plane 79 ml Volume, ES, MOD, 2-plane 44 ml Ejection fraction, MOD, 2-plane 44 % Stroke volume, MOD, 2-plane 35 ml Volume index, ED, MOD, 2-plane 62 ml/m^2 Volume index, ES, MOD, 2-plane 34 ml/m^2 Stroke index, MOD, 2-plane 27.3 ml/m^2 Ventricular septum Septal thickness, ED 8.87 mm Aortic valve Leaflet separation *14 mm 15-26 BASIC MEASUREMENTS ADULT NORMAL Aortic valve Leaflet separation *14 mm 15-26 Aorta Root diameter, ED *18 mm 20-37 Left atrium Anterior-posterior dimension, ES 37 mm 19-40 Anterior-posterior dimension index, ES *2.89 cm/m^2 <2.2 LA/aortic root ratio 2.06 DOPPLER MEASUREMENTS ADULT NORMAL Main pulmonary artery Pressure, S *34 mm Hg =30 Aortic valve Peak velocity, S 128 cm/s VTI, S 34 cm Valve area, Vmax 2.62 cm^2 Valve area index, Vmax 2.05 cm^2/m^2 Mitral valve Peak E-wave velocity 134 cm/s Peak A-wave velocity 116 cm/s Mean velocity, D 91.4 cm/s Deceleration time 158 ms 150-230 Pressure half-time 70 ms Mean gradient, D 4 mm Hg Peak gradient, D 8 mm Hg Peak E/A ratio 1.2 Valve area, pressure half-time 3.14 cm^2 Valve area index, pressure half-time 2.45 cm^2/m^2 Maximal regurgitant velocity 214 cm/s Tricuspid valve Regurgitant peak velocity 243 cm/s Peak RV-RA gradient, S 24 mm Hg Maximal regurgitant velocity 243 cm/s Systemic veins Estimated CVP 10 mm Hg Right ventricle RV pressure, S *34 mm Hg <30 LEGEND: Mean values are shown as u=mean value. Asterisk (*) russell values outside specified normal range. Prepared and signed by Tj Delgado [id number]
[2016-08-03] MEDS: QUEtiapine FUMARATE 25 MG TAB PO SCH (21:46)
[2016-08-03] MEDS: ATORVASTATIN 20 MG TAB PO SCH (21:46)
[2016-08-03] MEDS: LATANOPROST 0.005% OPHT SOLN 2.5 ML BTL EACH EYE SCH (21:53)
[2016-08-04] VITALS (19 sets, daily range): BP systolic 121–147; BP diastolic 62–87; PULSE 78–138; RESP 16–22; TEMP 97.9–99.3; O2SAT 94–96
[2016-08-04] MEDS ORDERED: DILTIAZEM HCL 25 MG/5 ML VIAL IV ONE (03:00)
[2016-08-04] MEDS ORDERED: METOPROLOL TARTRATE 5 MG/5 ML VIAL IV PUSH ONE (05:45)
--- NOTE | 2016-08-04 08:27 | PD.CARD.PN ---
Subjective Subjective Remarks still confused (Aquiles Jasso) Objective Vital Signs / I&O Vital Signs Date Time Temp Pulse Resp B/P Pulse Ox O2 Delivery O2 Flow Rate FiO2 08/04/16 04:38 133 124/74 08/04/16 04:30 111 08/04/16 04:00 124 08/04/16 03:30 113 08/04/16 03:00 99.3 138 22 147/87 94 08/03/16 23:00 97.1 81 18 138/80 92 08/03/16 19:00 99.4 95 18 147/87 98 08/03/16 18:00 94 08/03/16 17:00 86 08/03/16 16:00 92 08/03/16 15:00 59 08/03/16 15:00 99.5 83 18 153/68 95 08/03/16 14:00 87 08/03/16 13:00 82 08/03/16 12:00 85 08/03/16 11:00 98.7 73 16 127/64 96 08/03/16 11:00 70 08/03/16 10:00 81 08/03/16 09:00 82 I/O 08/03/16 08/03/16 08/03/16 08/04/16 08/04/16 08/04/16 07:00 15:00 23:00 07:00 15:00 23:00 Intake Total 125 ml 480 ml Output Total 275 ml 400 ml Balance -150 ml 80 ml Intake Oral 125 ml 480 ml Output Urine Total 275 ml 400 ml Physical Exam GENERAL: Well-nourished, well-developed patient in no apparent distress. NECK: No JVD. No carotid bruit. CARDIOVASCULAR: Regular rate and rhythm. S1/S2 no murmur, rub, or gallop. RESPIRATORY: No accessory muscle use. Clear to auscultation. Breath sounds equal bilaterally. GASTROINTESTINAL: Abdomen soft, non-tender, nondistended. MUSCULOSKELETAL: Extremities without clubbing, cyanosis, or edema. (Aquiles Jasso) Assessment and Plan Problem List: (1) NSTEMI (non-ST elevated myocardial infarction) (2) Hypertension (3) Hyperlipidemia (4) Paroxysmal a-fib Assessment and Plan NSTEMI - currently CP free. asa statin bb. Will eventually need probable LHC but need to resolve mental status changes afib - RVR. now medically converted to SR (Aquiles Jasso) Assessment and Plan pleasantly demented. NSTEMI - troponin trending down. echo shows reduced EF and LAD wall motion abnormality. now NSR. unclear baseline mental status. tentatively plan for [facility] sunday if mental status at baseline. Otherwise, medical mgt. Will need to have discussion with family. (Tj Delgado MD) Aquiles Jasso Aug 04, 2016 08:27 Tj Delgado MD Aug 04, 2016 12:35
[2016-08-04] MEDS: SENNOSIDES 8.6 MG TAB PO SCH (10:05)
[2016-08-04] MEDS: ASPIRIN EC 81 MG TABEC PO SCH (10:05)
[2016-08-04] MEDS: MULTIVITAMINS/MINERALS THERAPEUTIC TAB PO SCH (10:05)
[2016-08-04] MEDS: DIGOXIN 0.125 MG TAB PO SCH (10:05)
[2016-08-04] MEDS: POLYETHYLENE GLYCOL 17 GM PKG PO SCH (10:05)
[2016-08-04] MEDS: FAMOTIDINE 20 MG TAB PO SCH ×2 (10:05→22:37)
[2016-08-04] MEDS: METOPROLOL TARTRATE 25 MG TAB PO SCH (10:06)
[2016-08-04] MEDS: SODIUM CHLORIDE 0.9% FLUSH 5 ML FLUSH FLUSH SCH ×2 (10:07→22:38)
[2016-08-04] MEDS: ENOXAPARIN SODIUM 30 MG/0.3 ML SYRINGE SQ SCH (10:33)
[2016-08-04] MEDS: FERROUS SULFATE 325 MG (65 MG ELEMENTAL IRON) TAB PO SCH (10:34)
[2016-08-04] MEDS ORDERED: METOPROLOL TARTRATE 50 MG TAB PO ONE (11:30)
--- NOTE | 2016-08-04 13:40 | EKG ---
Date Performed: 08/03/2016 Time Performed: 13:01:14 PTAGE: 86 years EKG: Sinus rhythm Possible inferior infarct - age undetermined Lateral ST-T changes suggest myocardial injury/ischemia Abnormal ECG PREVIOUS TRACING : 08/01/2016 06.05 Since previous tracing, no significant change noted DOCTOR: Neisha Kerr Interpretating Date/Time 08/04/2016 13:35:13
--- NOTE | 2016-08-04 17:58 | HHI.PR ---
Subjective Remarks The patient was resting in bed comfortably. She was confused and was not sure why she was in the hospital. She had no acute complaints at this time. Objective Vitals Vital Signs Date Time Temp Pulse Resp B/P Pulse Ox O2 Delivery O2 Flow Rate FiO2 08/04/16 16:00 79 08/04/16 16:00 98.1 78 18 136/76 96 08/04/16 12:00 83 08/04/16 12:00 98.5 83 18 121/62 95 08/04/16 11:18 123 08/04/16 08:30 79 08/04/16 06:00 126 08/04/16 05:00 86 08/04/16 04:38 133 124/74 08/04/16 04:30 111 08/04/16 04:00 124 08/04/16 04:00 114 08/04/16 03:30 113 08/04/16 03:00 99.3 138 22 147/87 94 08/04/16 03:00 107 08/04/16 02:00 80 08/04/16 01:00 82 08/04/16 00:00 83 08/03/16 23:00 50 08/03/16 23:00 97.1 81 18 138/80 92 08/03/16 22:00 88 08/03/16 21:00 96 08/03/16 20:00 90 08/03/16 19:00 50 08/03/16 19:00 99.4 95 18 147/87 98 08/03/16 18:00 94 I/O 08/03/16 08/03/16 08/03/16 08/04/16 08/04/16 08/04/16 07:00 15:00 23:00 07:00 15:00 23:00 Intake Total 125 ml 480 ml 240 ml Output Total 275 ml 400 ml 450 ml 250 ml Balance -150 ml 80 ml -210 ml -250 ml Intake Oral 125 ml 480 ml 240 ml Output Urine Total 275 ml 400 ml 450 ml 250 ml Result Diagram: 08/02/16 0610 08/02/16 0610 Imaging Last Impressions Head CT 07/31/16 1315 Signed Impressions: Service Date/Time: Sunday, July 31, 2016 14:31 - CONCLUSION: Atrophy with moderate vascular calcifications, negative for acute process. Kamari Peoples MD FACR Chest X-Ray 07/31/16 1315 Signed Impressions: Service Date/Time: Sunday, July 31, 2016 13:26 - CONCLUSION: 1. Cardiomegaly and findings of congestive heart failure. Julio Sims MD Hip and Pelvis X-Ray 07/31/16 0000 Signed Impressions: Service Date/Time: Sunday, July 31, 2016 13:30 - CONCLUSION: Negative for fracture or dislocation. Followup in 7-10 days is suggested if symptoms persist. Kamari Peoples MD FACR Aorta CTA 07/31/16 0000 Signed Impressions: Service Date/Time: Sunday, July 31, 2016 17:05 - CONCLUSION: Extensive atherosclerotic vascular calcifications with no evidence of aneurysm . Degenerative findings of the lower lumbar spine. Moderate size retrocardiac hiatal hernia Andrey Warren MD Objective Remarks GENERAL: Well-developed well-nourished, in no apparent distress. SKIN: Warm and dry. HEAD: Atraumatic. Normocephalic. EYES: Pupils equal and round. No scleral icterus. No injection or drainage. ENT: No nasal bleeding or discharge. Mucous membranes pink and moist. NECK: Trachea midline. No JVD. CARDIOVASCULAR: Regular rate and rhythm, no murmurs. RESPIRATORY: No accessory muscle use. Clear to auscultation. Breath sounds equal bilaterally. GASTROINTESTINAL: Abdomen soft, slight tenderness to palpation, nondistended. Hepatic and splenic margins not palpable. MUSCULOSKELETAL: No obvious deformities. No clubbing. No cyanosis. No edema. There is minimal tenderness about the left greater trochanter on the left hip. No bruising no laceration. NEUROLOGICAL: Awake and alert. No cranial nerves II through XII are grossly intact and nonfocal, 5 out of 5 strength in all 4 extremities. PSYCHIATRIC: Pleasantly confused. Medications and IVs Current Medications Medications (Trade) Dose Ordered Sig/Alfreda Route Start Time Stop Time Status Last Admin (NS Flush) 2 ml UNSCH PRN FLUSH 07/31/16 18:30 08/02/16 04:48 (NS Flush) 2 ml BID FLUSH 07/31/16 21:00 08/04/16 10:07 (Narcan Inj) 0.4 mg UNSCH PRN IV 07/31/16 18:30 (Nitrostat Sl) 0.4 mg Q5M PRN SL 07/31/16 18:30 (Pill Splitter) 1 ea UNSCH PRN OTHER 08/01/16 10:30 (Lipitor) 20 mg HS PO 08/01/16 21:00 08/03/16 21:46 (Ecotrin Ec) 81 mg DAILY PO 08/02/16 09:00 08/04/16 10:05 (Theragran M Tab) 1 tab DAILY PO 08/02/16 09:00 08/04/16 10:05 (Miralax) 17 gm DAILY PO 08/02/16 09:00 08/04/16 10:05 (Pepcid) 10 mg BID PO 08/01/16 21:00 08/04/16 10:05 Patient Own Medication PT OWN MED: COMBI... Q12HR EACH EYE 08/01/16 21:00 Hold Patient Own Medication PT OWN MED: NAMENDA... DAILY PO 08/01/16 16:00 Hold (Xalatan 0.005% Opth Soln) 1 drop HS EACH EYE 08/01/16 21:00 08/03/16 21:53 (Senokot) 17.2 mg DAILY PO 08/01/16 16:00 08/04/16 10:05 (Lanoxin) 0.125 mg DAILY PO 08/03/16 09:00 08/04/16 10:05 (SEROquel) 25 mg HS PO 08/02/16 21:00 08/03/16 21:46 (Lovenox Inj) 30 mg Q24H SQ 08/03/16 11:00 08/04/16 10:33 (Ferrous Sulfate) 325 mg DAILY PO 08/03/16 11:00 08/04/16 10:34 (Lopressor) 50 mg Q12HR PO 08/04/16 21:00 A/P Assessment and Plan NSTEMI The patient was found to have a troponin that peaked at 16.1. EKG with T-wave inversions in the lateral leads with some ST depression. She denies chest pain or shortness of breath. Chest x-ray with findings of CHF. Cardiology consult appreciated. LDL 47. - Continue cardiac regimen. Catheterization when stable. Possibly on Sunday. - telemetry. A fib with RVR The pt went into A fib with RVR. She was started on a diltiazem gtt. - Increase Lopressor to 50 mg by mouth twice a day. - telemetry. CHF BNP markedly elevated. CXR consistent with CHF. Appears Euvolemic. Echo shows reduced EF and LAD wall motion abnormality. - continue cardiac regimen. - diurese as needed. Supratherapeutic INR The pt is on Coumadin for history of CVA. She lives in an [place] and has frequent falls. Head CT negative for bleed. - d/c Coumadin. - Vitamin K per cardiology. - follow INR. 1.6 2. Dementia The pt is on Namenda. She has frequent falls and resides in an [place]. Per the patient's daughter she is normally independent but when she comes to Hospital she always becomes disoriented. She follows with Dr. Schultz from neurology. - PT/OT/ case management consult. - continue Namenda. - neurology consult requested to help assess if candidate for cardiac catheterization. - Repeat urinalysis. Anemia Hemoglobin significantly lower than on previous admission. INR elevated as above. B12, folate and iron studies noted. - hold Coumadin. - follow CBC and transfuse as needed. - check Hemoccult. UTI Urine culture with no growth. - no antibiotics indicated. HUDSON Creatinine not far from baseline. Stable 2/. - follow BMP and avoid nephrotoxins. Abdominal pain Noted on examination. The patient is not complaining of abdominal pain otherwise. - Check LFTs and lipase level. - Continue famotidine. PPx: Lovenox. Discharge Planning Awaiting further cardiology evaluation. Tramaine Easley DO Aug 04, 2016 17:58
[2016-08-04 19:00] LABS: BACTERIA, URINE RARE /hpf; BLOOD, URINE SMALL (NEG); GLUCOSE,URINE NEG (NEG); KETONE, URINE NEG (NEG); MUCUS URINE FEW /lpf (OCC); NITRITE,URINE NEG (NEG); PH, URINE 5.5 (5.0-8.5); SQUAMOUS EPITHELIAL CELL URINE 4 /hpf (0-5); URINE COLOR DARK-YELLOW (YELLW/STRAW)
[2016-08-04 19:03] LABS: COMMENT (UR) CATH-CULTURE IND; CULTURE IF INDICATED CATH CULTURE IND
[2016-08-04 21:32] LABS: ALKALINE PHOSPHATASE 64 U/L (45-117); ALT (GPT) 28 U/L (10-53); ANION GAP 8 MEQ/L (5-15); AST (GOT) 27 U/L (15-37); BICARBONATE 23.7 MEQ/L (21.0-32.0); BLOOD UREA NITROGEN 23 MG/DL (7-18); CHLORIDE 110 MEQ/L (98-107); GLOMERULAR FILTRATION RATE 56 ML/MIN (>89); POTASSIUM 3.9 MEQ/L (3.5-5.1); SODIUM (NA) 142 MEQ/L (136-145)
[2016-08-04] MEDS: QUEtiapine FUMARATE 25 MG TAB PO SCH (22:37)
[2016-08-04] MEDS: METOPROLOL TARTRATE 50 MG TAB PO SCH (22:37)
[2016-08-04] MEDS: ATORVASTATIN 20 MG TAB PO SCH (22:37)
[2016-08-04] MEDS: LATANOPROST 0.005% OPHT SOLN 2.5 ML BTL EACH EYE SCH (22:38)
[2016-08-05] VITALS (26 sets, daily range): BP systolic 127–156; BP diastolic 62–79; PULSE 70–94; RESP 14–22; TEMP 97.3–99.1; O2SAT 93–95
[2016-08-05 07:35] LABS: HEMATOCRIT 32.6 % (35.0-46.0); MEAN CELL VOLUME 87.5 FL (80.0-100.0); MEAN CORPUSCULAR HEMOGLOBIN 28.7 PG (27.0-34.0); MEAN CORPUSCULAR HGB CONC 32.8 % (32.0-36.0); PLATELET COUNT 447 TH/MM3 (150-450); RED BLOOD COUNT 3.73 MIL/MM3 (4.00-5.30); RED CELL DISTRIBUTION WIDTH 14.1 % (11.6-17.2); REVIEW FLAG FINAL; WHITE BLOOD COUNT 7.9 TH/MM3 (4.0-11.0)
[2016-08-05 07:54] LABS: BICARBONATE 23.2 MEQ/L (21.0-32.0); MAGNESIUM 2.4 MG/DL (1.5-2.5)
--- NOTE | 2016-08-05 08:30 | HHI.PR ---
Subjective Remarks The patient said she got a good night sleep. She seemed to be slightly more oriented but was still confused. She had no acute complaints. Objective Vitals Vital Signs Date Time Temp Pulse Resp B/P Pulse Ox O2 Delivery O2 Flow Rate FiO2 08/05/16 08:19 98.7 87 14 156/76 93 08/05/16 07:00 87 08/05/16 06:00 82 08/05/16 05:00 92 08/05/16 04:00 90 08/05/16 03:00 81 08/05/16 03:00 98.0 80 22 147/79 95 08/05/16 02:00 78 08/05/16 01:00 78 08/05/16 00:00 86 08/04/16 23:00 79 08/04/16 23:00 97.9 82 20 121/65 94 08/04/16 22:00 90 08/04/16 21:00 82 08/04/16 20:00 86 08/04/16 19:00 98.9 82 16 136/68 94 08/04/16 19:00 82 08/04/16 16:00 79 08/04/16 16:00 98.1 78 18 136/76 96 08/04/16 12:00 83 08/04/16 12:00 98.5 83 18 121/62 95 08/04/16 11:18 123 08/04/16 08:30 79 I/O 08/04/16 08/04/16 08/04/16 08/05/16 08/05/16 08/05/16 07:00 15:00 23:00 07:00 15:00 23:00 Intake Total 240 ml 240 ml Output Total 450 ml 250 ml 350 ml Balance -210 ml -250 ml -110 ml Intake Oral 240 ml 240 ml Output Urine Total 450 ml 250 ml 350 ml Result Diagram: 08/05/1615 08/05/16614 Imaging Last Impressions Head CT 07/31/161314 Signed Impressions: Service Date/Time: Sunday, July 31, 2016 14:31 - CONCLUSION: Atrophy with moderate vascular calcifications, negative for acute process. Kamari Peoples MD FACR Chest X-Ray 07/31/165 Signed Impressions: Service Date/Time: Sunday, July 31, 2016 13:26 - CONCLUSION: 1. Cardiomegaly and findings of congestive heart failure. Julio Sims MD Hip and Pelvis X-Ray 07/31/16 0000 Signed Impressions: Service Date/Time: Sunday, July 31, 2016 13:30 - CONCLUSION: Negative for fracture or dislocation. Followup in 7-10 days is suggested if symptoms persist. Kamari Peoples MD FACR Aorta CTA 07/31/16 0000 Signed Impressions: Service Date/Time: Sunday, July 31, 2016 17:05 - CONCLUSION: Extensive atherosclerotic vascular calcifications with no evidence of aneurysm . Degenerative findings of the lower lumbar spine. Moderate size retrocardiac hiatal hernia Andrey Warren MD Objective Remarks GENERAL: Well-developed well-nourished, in no apparent distress. SKIN: Warm and dry. HEAD: Atraumatic. Normocephalic. EYES: Pupils equal and round. No scleral icterus. No injection or drainage. ENT: No nasal bleeding or discharge. Mucous membranes pink and moist. NECK: Trachea midline. No JVD. CARDIOVASCULAR: Regular rate and rhythm, no murmurs. RESPIRATORY: No accessory muscle use. Clear to auscultation. Breath sounds equal bilaterally. GASTROINTESTINAL: Abdomen soft, slight tenderness to palpation, nondistended. Hepatic and splenic margins not palpable. MUSCULOSKELETAL: No obvious deformities. No clubbing. No cyanosis. No edema. There is minimal tenderness about the left greater trochanter on the left hip. No bruising no laceration. NEUROLOGICAL: Awake and alert. No cranial nerves II through XII are grossly intact and nonfocal, 5 out of 5 strength in all 4 extremities. PSYCHIATRIC: Pleasantly confused. Medications and IVs Current Medications Medications (Trade) Dose Ordered Sig/Alfreda Route Start Time Stop Time Status Last Admin (NS Flush) 2 ml UNSCH PRN FLUSH 07/31/16 18:30 08/02/16 04:48 (NS Flush) 2 ml BID FLUSH 07/31/16 21:00 08/04/16 22:38 (Narcan Inj) 0.4 mg UNSCH PRN IV 07/31/16 18:30 (Nitrostat Sl) 0.4 mg Q5M PRN SL 07/31/16 18:30 (Pill Splitter) 1 ea UNSCH PRN OTHER 08/01/16 10:30 (Lipitor) 20 mg HS PO 08/01/16 21:00 08/04/16 22:37 (Ecotrin Ec) 81 mg DAILY PO 08/02/16 09:00 08/04/16 10:05 (Theragran M Tab) 1 tab DAILY PO 08/02/16 09:00 08/04/16 10:05 (Miralax) 17 gm DAILY PO 08/02/16 09:00 08/04/16 10:05 (Pepcid) 10 mg BID PO 08/01/16 21:00 08/04/16 22:37 Patient Own Medication PT OWN MED: COMBI... Q12HR EACH EYE 08/01/16 21:00 Hold Patient Own Medication PT OWN MED: NAMENDA... DAILY PO 08/01/16 16:00 Hold (Xalatan 0.005% Opth Soln) 1 drop HS EACH EYE 08/01/16 21:00 08/04/16 22:38 (Senokot) 17.2 mg DAILY PO 08/01/16 16:00 08/04/16 10:05 (Lanoxin) 0.125 mg DAILY PO 08/03/16 09:00 08/04/16 10:05 (SEROquel) 25 mg HS PO 08/02/16 21:00 08/04/16 22:37 (Lovenox Inj) 30 mg Q24H SQ 08/03/16 11:00 08/04/16 10:33 (Ferrous Sulfate) 325 mg DAILY PO 08/03/16 11:00 08/04/16 10:34 (Lopressor) 50 mg Q12HR PO 08/04/16 21:00 08/04/16 22:37 (Macrobid) 100 mg BIDPC PO 08/05/16 09:00 UNV A/P Assessment and Plan NSTEMI The patient was found to have a troponin that peaked at 16.1. EKG with T-wave inversions in the lateral leads with some ST depression. She denies chest pain or shortness of breath. Chest x-ray with findings of CHF. Cardiology consult appreciated. LDL 47. - Continue cardiac regimen. Catheterization when stable. Possibly on Sunday. - telemetry. A fib with RVR The pt went into A fib with RVR. She was started on a diltiazem gtt. - Increase Lopressor to 50 mg by mouth twice a day. - telemetry. CHF BNP markedly elevated. CXR consistent with CHF. Appears Euvolemic. Echo shows reduced EF and LAD wall motion abnormality. - continue cardiac regimen. - diurese as needed. Supratherapeutic INR The pt is on Coumadin for history of CVA. She lives in an [place] and has frequent falls. Head CT negative for bleed. - d/c Coumadin. - Vitamin K per cardiology. - follow INR. 1.6 08/02. Dementia The pt is on Namenda. She has frequent falls and resides in an [place]. Per the patient's daughter she is normally independent but when she comes to Hospital she always becomes disoriented. She follows with Dr. Schultz from neurology. - PT/OT/ case management consult. - continue Namenda. - neurology consult requested to help assess if candidate for cardiac catheterization. - Repeat urinalysis. Anemia Hemoglobin significantly lower than on previous admission. INR elevated as above. B12, folate and iron studies noted. - hold Coumadin. - follow CBC and transfuse as needed. Stable. - check Hemoccult. UTI Urine culture with no growth. Repeat UA indicative of infection. - Start nitrofurantoin and follow urine culture. HUDSON Creatinine not far from baseline. Stable 08/05. - follow BMP and avoid nephrotoxins. Abdominal pain Noted on examination. The patient is not complaining of abdominal pain otherwise. LFTs unremarkable. - Continue famotidine. - Check a KUB. PPx: Lovenox. Discharge Planning Awaiting further cardiology evaluation. Tramaine Easley DO Aug 05, 2016 08:30
--- NOTE | 2016-08-05 09:19 | RADRPT ---
EXAM DATE/TIME: 08/05/2016 08:43 [facility] COMPARISON: No previous studies available for comparison. INDICATIONS : Abdominal Pain. MEDICAL HISTORY : Cardiovascular disease. Cerebrovascular disease. SURGICAL HISTORY : Appendectomy. ENCOUNTER: Initial ACUITY: 1 day PAIN SCORE: Non-responsive. LOCATION: Abdomen. FINDINGS: Supine view of the abdomen was performed. Gaseous distention of bowel loops without obstruction. No abnormal masses, calcifications, or organomegaly is seen. The osseous structures are unremarkable. S coliosis and degenerative changes lumbar spine. CONCLUSION: Gaseous distention without obstruction. No acute abnormalities. Iam Moralez MD on August 05, 2016 at 9:16 Board Certified Radiologist. This report was verified electronically.
[2016-08-05] MEDS: MULTIVITAMINS/MINERALS THERAPEUTIC TAB PO SCH (09:30)
[2016-08-05] MEDS: FAMOTIDINE 20 MG TAB PO SCH ×2 (09:30→21:27)
[2016-08-05] MEDS: POLYETHYLENE GLYCOL 17 GM PKG PO SCH (09:30)
[2016-08-05] MEDS: SODIUM CHLORIDE 0.9% FLUSH 5 ML FLUSH FLUSH SCH ×2 (09:31→21:00)
[2016-08-05] MEDS: SENNOSIDES 8.6 MG TAB PO SCH (09:31)
[2016-08-05] MEDS: ASPIRIN EC 81 MG TABEC PO SCH (09:31)
[2016-08-05] MEDS: FERROUS SULFATE 325 MG (65 MG ELEMENTAL IRON) TAB PO SCH (09:31)
[2016-08-05] MEDS: DIGOXIN 0.125 MG TAB PO SCH (09:31)
[2016-08-05] MEDS: METOPROLOL TARTRATE 50 MG TAB PO SCH ×2 (09:31→21:27)
[2016-08-05] MEDS: ENOXAPARIN SODIUM 30 MG/0.3 ML SYRINGE SQ SCH (11:21)
--- NOTE | 2016-08-05 11:52 | PD.CARD.PN ---
Subjective Subjective Remarks The patient is only oriented to name and cannot carry on a very lucid conversation. She denies chest pain, shortness of breath or GI symptoms. Telemetry reveals sinus rhythm with short atrial runs. The chart was reviewed. Objective Medications Reviewed Vital Signs / I&O Vital Signs Date Time Temp Pulse Resp B/P Pulse Ox O2 Delivery O2 Flow Rate FiO2 08/05/16 11:32 98.2 71 14 140/69 95 08/05/16 08:19 98.7 87 14 156/76 93 08/05/16 07:00 87 08/05/16 06:00 82 08/05/16 05:00 92 08/05/16 04:00 90 08/05/16 03:00 81 08/05/16 03:00 98.0 80 22 147/79 95 08/05/16 02:00 78 08/05/16 01:00 78 08/05/16 00:00 86 08/04/16 23:00 79 08/04/16 23:00 97.9 82 20 121/65 94 08/04/16 22:00 90 08/04/16 21:00 82 08/04/16 20:00 86 08/04/16 19:00 98.9 82 16 136/68 94 08/04/16 19:00 82 08/04/16 16:00 79 08/04/16 16:00 98.1 78 18 136/76 96 08/04/16 12:00 83 08/04/16 12:00 98.5 83 18 121/62 95 I/O 08/04/16 08/04/16 08/04/16 08/05/16 08/05/16 08/05/16 07:00 15:00 23:00 07:00 15:00 23:00 Intake Total 240 ml 240 ml Output Total 450 ml 250 ml 350 ml Balance -210 ml -250 ml -110 ml Intake Oral 240 ml 240 ml Output Urine Total 450 ml 250 ml 350 ml Physical Exam GENERAL: Well-nourished, well-developed patient in no apparent distress. SKIN: Warm and dry. NECK: JVD normal - less than or equal to 5 cm H20. CARDIOVASCULAR: Regular rate and rhythm without murmurs, gallops, or rubs. RESPIRATORY: Normal breath sounds - equal bilaterally. No accessory muscle use. No wheezes, rales or rubs. PERIPHERY: No cyanosis, or edema. Laboratory Laboratory Tests Test 08/04/16 08/04/16 08/05/16 17:20 20:08 06:15 Urine Color DARK-YELLOW Urine Turbidity CLOUDY Urine pH 5.5 Urine Specific [place] 1.025 Urine Protein 100 mg/dL Urine Glucose (UA) NEG mg/dL Urine Ketones NEG mg/dL Urine Occult Blood SMALL Urine Nitrite NEG Urine Bilirubin NEG Urine Urobilinogen LESS THAN 2.0 MG/DL Urine Leukocyte Esterase TRACE Urine RBC 161 /hpf Urine WBC 1 /hpf Urine Squamous Epithelial 4 /hpf Cells Urine Bacteria RARE /hpf Urine Mucus FEW /lpf Microscopic Urinalysis Comment CATH-CULTURE IND Sodium Level 142 MEQ/L 143 MEQ/L Potassium Level 3.9 MEQ/L 4.0 MEQ/L Chloride Level 110 MEQ/L 111 MEQ/L Carbon Dioxide Level 23.7 MEQ/L 23.2 MEQ/L Anion Gap 8 MEQ/L 9 MEQ/L Blood Urea Nitrogen 23 MG/DL 22 MG/DL Creatinine 0.94 MG/DL 0.84 MG/DL Estimat Glomerular Filtration 56 ML/MIN 64 ML/MIN Rate Random Glucose 109 MG/DL 112 MG/DL Calcium Level 7.9 MG/DL 7.7 MG/DL Total Bilirubin 1.0 MG/DL Aspartate Amino Transf 27 U/L (AST/SGOT) Alanine Aminotransferase 28 U/L (ALT/SGPT) Alkaline Phosphatase 64 U/L Total Protein 5.9 GM/DL Albumin 2.7 GM/DL Lipase 197 U/L White Blood Count 7.9 TH/MM3 Red Blood Count 3.73 MIL/MM3 Hemoglobin 10.7 GM/DL Hematocrit 32.6 % Mean Corpuscular Volume 87.5 FL Mean Corpuscular Hemoglobin 28.7 PG Mean Corpuscular Hemoglobin 32.8 % Concent Red Cell Distribution Width 14.1 % Platelet Count 447 TH/MM3 Mean Platelet Volume 7.9 FL Magnesium Level 2.4 MG/DL Imaging Last 48 hours Impressions Abdomen X-Ray 08/05/16 0000 Signed Impressions: Service Date/Time: Friday, August 05, 2016 08:43 - CONCLUSION: Gaseous distention without obstruction. No acute abnormalities. Iam Moralez MD Assessment and Plan Assessment and Plan Problems: Non-ST elevation AR Hypertension Hyperlipidemia Left ventricular dysfunction Paroxysmal atrial fibrillation Recommendations: The patient is a poor candidate for invasive cardiac workup given her age and confusion. I would only manage her medically. Continue beta blockers and aspirin Statins DVT prophylaxis I have taken the liberty of starting enalapril. I have ordered a follow-up BMP and will leave it to the primary service to follow this up. She will eventually need follow-up with Dr. peters. I will be available if needed. Viral Noble MD Aug 05, 2016 11:52
[2016-08-05] MEDS: NITROFURANTOIN MONOHYD MACROCR 100 MG CAP PO SCH ×2 (13:05→18:11)
[2016-08-05] MEDS: ENALAPRIL MALEATE 2.5 MG TAB PO SCH ×2 (13:06→21:27)
[2016-08-05] MEDS: LATANOPROST 0.005% OPHT SOLN 2.5 ML BTL EACH EYE SCH (21:26)
[2016-08-05] MEDS: ATORVASTATIN 20 MG TAB PO SCH (21:27)
[2016-08-05] MEDS: QUEtiapine FUMARATE 25 MG TAB PO SCH (21:27)
--- NOTE | 2016-08-05 22:11 | MB ---
cc: DALLAS SARMIENTO MD DATE OF CONSULTATION 08/05/16 REASON FOR CONSULTATION Dementia for assessment prior to cardiac procedure HISTORY OF PRESENT ILLNESS Ms. Edward is an 86-year-old female with past medical history of stroke who was admitted to the hospital on August 01, 2016 for left leg pain and confusion. Most of the medical history is obtained from the medical records as the patient is demented and a poor historian. The patient has reportedly been falling several times and sustained multiple falls in the assisted living facility she resides at. Her friend was concerned over the patient's increasing confusion on top of a diagnosis of dementia, currently on Namenda and follows up with Dr. Schultz. When the patient was taken to [facility] where she was found to have elevated troponins, transferred to the [facility] to be evaluated by cardiology. When her INR was found to be over five, she received vitamin K. Head CT scan was negative for a bleed and her hemoglobin was found to be lower than it was on a previous admission. As per the medical records, the patient's daughter states that at baseline she is independent but when she is in the hospital she becomes disoriented. REVIEW OF SYSTEMS 12-point review of systems is negative except for what is mentioned in the HPI. PAST MEDICAL HISTORY Obtained from medical records 1. Stroke 2. Dementia 3. Hypertension 4. Gastroesophageal reflux disease PAST SURGICAL HISTORY Obtained from medical records, 1. Appendectomy 2. Bowel resection 3. Cataract surgery. ALLERGIES Obtained from medical records CODEINE FLAGYL IODINE PENICILLIN BACTRIM CIPRO. FAMILY HISTORY Unable to obtain. SOCIAL HISTORY As per medical records, the patient does not drink or smoke PHYSICAL EXAMINATION GENERAL: The patient is a frail lady who lays in bed during the encounter, most of the time she was sleepy but she can easily awaken to verbal stimuli, not in apparent distress. HEENT: Atraumatic, normocephalic. [id number]. Normal vision. NECK: Supple with no signs of the meningeal irritation. CARDIOVASCULAR: Regular rate and rhythm. No murmur appreciated. RESPIRATORY: Clear to auscultation. No wheezes. MUSCULOSKELETAL: No obvious deformities. No clubbing or cyanosis and no edema. NEUROLOGIC: Awake, alert, oriented to person only, place (home/bedroom), time (2010) day (no response) date of , year (1955). Speaks in a soft voice, hypophonic voice positive Neer sign, weak reflex, grasp reflex on the left. Cranial nerves are grossly intact II-XII. Motor system moves all extremities equally. No abnormal tone is noted. No abnormal movements. Unable to assess accurately the muscle strength because of the lack of cooperation of the patient. Sensation cerebellar function are also hard to assess because of the lack of cooperation because of the baseline dementia. Reflexes 1+ bilateral symmetrical. Plantars are bilateral downgoing. LABORATORY DATA White blood cells 10.8, hemoglobin 10.4, platelet count 409. Sodium 141, potassium 4.1, anion gap 11, BUN 24, creatinine 1.1, AST 96, ALT 27, alkaline phosphatase 59. Total creatinine kinase 410, troponin 16.1. IMAGING STUDIES - Head CT scan revealed atrophy with moderate vascular calcification negative for an acute process. DIAGNOSTIC IMPRESSION Dementia. Given the medical history and diagnosis of dementia, currently on Namenda, follows up with neurologist, Dr. Schultz and with my current neurologic evaluation I do not think the patient has the capacity to make an intelligent decision regarding her medical care. PLAN 1. Neuro checks q. four hourly. 2. Continue current medication. 3. Limit the use of opiates and benzos unless critically needed 4. PT, OT case management consults 5. The patient may follow-up with neurology as an outpatient for further evaluation and management of dementia. Thank you for the opportunity to participate in the care of your patient. MD LEONELA Marshall/ /8:42 PM /9:32 PM VENKAT
[2016-08-06] VITALS (26 sets, daily range): BP systolic 113–136; BP diastolic 55–81; PULSE 59–130; RESP 14–20; TEMP 96.1–98.5; O2SAT 93–95
[2016-08-06] MEDS ORDERED: METOPROLOL TARTRATE 5 MG/5 ML VIAL IV PUSH ONE ×2 (00:45→02:00)
[2016-08-06] MEDS ORDERED: SODIUM CHLORID 0.9% 500 ML INJ 500 ML IV ONE ×2 (02:00→07:00)
--- NOTE | 2016-08-06 09:18 | PD.CARD.PN ---
Subjective Subjective Remarks The patient is more oriented to today both to person and place. She denies any cardiac or GI symptoms or bleeding. She is on SCDs. She did have recurrent atrial fibrillation with rapid response but has converted back to sinus rhythm. Objective Medications Reviewed Vital Signs / I&O Vital Signs Date Time Temp Pulse Resp B/P Pulse Ox O2 Delivery O2 Flow Rate FiO2 08/06/16 08:00 97.8 80 14 133/70 95 08/06/16 07:09 124 08/06/16 07:00 130 08/06/16 06:00 128 08/06/16 06:00 128 08/06/16 05:00 80 08/06/16 05:00 80 08/06/16 04:00 72 08/06/16 04:00 72 08/06/16 03:00 96.1 122 20 113/81 94 08/06/16 03:00 122 08/06/16 02:00 124 08/06/16 02:00 122 08/06/16 01:00 122 08/06/16 01:00 122 08/06/16 00:00 118 08/06/16 00:00 120 08/05/16 23:00 70 08/05/16 23:00 97.3 77 16 128/65 93 08/05/16 22:00 78 08/05/16 21:00 78 08/05/16 20:00 78 08/05/16 19:00 99.1 83 18 127/68 95 08/05/16 18:00 74 08/05/16 17:00 74 08/05/16 16:00 74 08/05/16 15:00 78 08/05/16 15:00 97.7 73 14 127/62 94 08/05/16 14:00 78 08/05/16 13:00 72 08/05/16 12:00 70 08/05/16 11:32 98.2 71 14 140/69 95 08/05/16 11:00 72 08/05/16 10:00 94 I/O 08/05/16 08/05/16 08/05/16 08/06/16 08/06/16 08/06/16 07:00 15:00 23:00 07:00 15:00 23:00 Intake Total 240 ml 420 ml 240 ml Output Total 350 ml 750 ml 250 ml Balance -110 ml -330 ml -10 ml Intake Oral 240 ml 420 ml 240 ml Output Urine Total 350 ml 750 ml 250 ml # Bowel Movements 0 Physical Exam GENERAL: Well-nourished, well-developed patient in no apparent distress. SKIN: Warm and dry. NECK: JVD normal - less than or equal to 5 cm H20. CARDIOVASCULAR: Regular rate and rhythm without murmurs, gallops, or rubs. RESPIRATORY: Normal breath sounds - equal bilaterally. No accessory muscle use. No wheezes, rales or rubs. PERIPHERY: No cyanosis, or edema. Assessment and Plan Assessment and Plan Problems: Non-ST elevation AR Hypertension Hyperlipidemia Left ventricular dysfunction Paroxysmal atrial fibrillation Recommendations: The patient is a poor candidate for invasive cardiac workup given her age and confusion. I would only manage her medically. Continue beta blockers and aspirin. I have added diltiazem for rate control. Statins DVT prophylaxis Continue Mitesh inhibitors. BMP is pending Dr. peters to return tomorrow. Viral Noble MD Aug 06, 2016 09:18
[2016-08-06] MEDS: SODIUM CHLORIDE 0.9% FLUSH 5 ML FLUSH FLUSH SCH ×2 (09:49→20:06)
[2016-08-06] MEDS: FERROUS SULFATE 325 MG (65 MG ELEMENTAL IRON) TAB PO SCH (09:50)
[2016-08-06] MEDS: DIGOXIN 0.125 MG TAB PO SCH (09:50)
[2016-08-06] MEDS: FAMOTIDINE 20 MG TAB PO SCH ×2 (09:50→20:06)
[2016-08-06] MEDS: SENNOSIDES 8.6 MG TAB PO SCH (09:50)
[2016-08-06] MEDS: POLYETHYLENE GLYCOL 17 GM PKG PO SCH (09:50)
[2016-08-06] MEDS: METOPROLOL TARTRATE 50 MG TAB PO SCH ×2 (09:50→20:06)
[2016-08-06] MEDS: MULTIVITAMINS/MINERALS THERAPEUTIC TAB PO SCH (09:50)
[2016-08-06] MEDS: ENALAPRIL MALEATE 2.5 MG TAB PO SCH ×2 (09:50→20:06)
[2016-08-06] MEDS: ASPIRIN EC 81 MG TABEC PO SCH (09:51)
[2016-08-06] MEDS: NITROFURANTOIN MONOHYD MACROCR 100 MG CAP PO SCH (09:51)
[2016-08-06] MEDS: DILTIAZEM HCL 30 MG TAB PO SCH ×3 (09:53→20:06)
[2016-08-06] MEDS: ENOXAPARIN SODIUM 30 MG/0.3 ML SYRINGE SQ SCH (09:53)
--- NOTE | 2016-08-06 14:12 | HHI.PR ---
Subjective Remarks The patient was resting comfortably in bed. She had no acute complaints. She was not sure where she was. ARGON TESTER at the bedside. Objective Vitals Vital Signs Date Time Temp Pulse Resp B/P Pulse Ox O2 Delivery O2 Flow Rate FiO2 08/06/16 13:00 72 08/06/16 12:00 66 08/06/16 11:30 98.1 66 18 116/65 94 08/06/16 11:00 75 08/06/16 10:00 82 08/06/16 09:00 84 08/06/16 08:00 97.8 80 14 133/70 95 08/06/16 08:00 122 08/06/16 07:09 124 08/06/16 07:00 130 08/06/16 06:00 128 08/06/16 06:00 128 08/06/16 05:00 80 08/06/16 05:00 80 08/06/16 04:00 72 08/06/16 04:00 72 08/06/16 03:00 96.1 122 20 113/81 94 08/06/16 03:00 122 08/06/16 02:00 124 08/06/16 02:00 122 08/06/16 01:00 122 08/06/16 01:00 122 08/06/16 00:00 118 08/06/16 00:00 120 08/05/16 23:00 70 08/05/16 23:00 97.3 77 16 128/65 93 08/05/16 22:00 78 08/05/16 21:00 78 08/05/16 20:00 78 08/05/16 19:00 99.1 83 18 127/68 95 08/05/16 18:00 74 08/05/16 17:00 74 08/05/16 16:00 74 08/05/16 15:00 78 08/05/16 15:00 97.7 73 14 127/62 94 I/O 08/05/16 08/05/16 08/05/16 08/06/16 08/06/16 08/06/16 07:00 15:00 23:00 07:00 15:00 23:00 Intake Total 240 ml 420 ml 240 ml 240 ml Output Total 350 ml 750 ml 250 ml Balance -110 ml -330 ml -10 ml 240 ml Intake Oral 240 ml 420 ml 240 ml 240 ml Output Urine Total 350 ml 750 ml 250 ml # Bowel Movements 0 Result Diagram: 08/05/16 0615 08/05/16 0615 Imaging Last Impressions Abdomen X-Ray 08/05/16 0000 Signed Impressions: Service Date/Time: Friday, August 05, 2016 08:43 - CONCLUSION: Gaseous distention without obstruction. No acute abnormalities. Iam Moralez MD Head CT 07/31/16 1315 Signed Impressions: Service Date/Time: Sunday, July 31, 2016 14:31 - CONCLUSION: Atrophy with moderate vascular calcifications, negative for acute process. Kamari Peoples MD FACR Chest X-Ray 07/31/16 1315 Signed Impressions: Service Date/Time: Sunday, July 31, 2016 13:26 - CONCLUSION: 1. Cardiomegaly and findings of congestive heart failure. Julio Sims MD Hip and Pelvis X-Ray 07/31/16 0000 Signed Impressions: Service Date/Time: Sunday, July 31, 2016 13:30 - CONCLUSION: Negative for fracture or dislocation. Followup in 7-10 days is suggested if symptoms persist. Kamari Peoples MD FACR Aorta CTA 07/31/16 0000 Signed Impressions: Service Date/Time: Sunday, July 31, 2016 17:05 - CONCLUSION: Extensive atherosclerotic vascular calcifications with no evidence of aneurysm . Degenerative findings of the lower lumbar spine. Moderate size retrocardiac hiatal hernia Andrey Warren MD Objective Remarks GENERAL: Well-developed well-nourished, in no apparent distress. SKIN: Warm and dry. HEAD: Atraumatic. Normocephalic. EYES: Pupils equal and round. No scleral icterus. No injection or drainage. ENT: No nasal bleeding or discharge. Mucous membranes pink and moist. NECK: Trachea midline. No JVD. CARDIOVASCULAR: Regular rate and rhythm, no murmurs. RESPIRATORY: No accessory muscle use. Clear to auscultation. Breath sounds equal bilaterally. GASTROINTESTINAL: Abdomen soft, slight tenderness to palpation, nondistended. Hepatic and splenic margins not palpable. MUSCULOSKELETAL: No obvious deformities. No clubbing. No cyanosis. No edema. There is minimal tenderness about the left greater trochanter on the left hip. No bruising no laceration. NEUROLOGICAL: Awake and alert. No cranial nerves II through XII are grossly intact and nonfocal, 5 out of 5 strength in all 4 extremities. PSYCHIATRIC: Pleasantly confused. Medications and IVs Current Medications Medications (Trade) Dose Ordered Sig/Alfreda Route Start Time Stop Time Status Last Admin (NS Flush) 2 ml UNSCH PRN FLUSH 07/31/16 18:30 08/02/16 04:48 (NS Flush) 2 ml BID FLUSH 07/31/16 21:00 08/05/16 21:00 (Narcan Inj) 0.4 mg UNSCH PRN IV 07/31/16 18:30 (Nitrostat Sl) 0.4 mg Q5M PRN SL 07/31/16 18:30 (Pill Splitter) 1 ea UNSCH PRN OTHER 08/01/16 10:30 (Lipitor) 20 mg HS PO 08/01/16 21:00 08/05/16 21:27 (Ecotrin Ec) 81 mg DAILY PO 08/02/16 09:00 08/06/16 09:51 (Theragran M Tab) 1 tab DAILY PO 08/02/16 09:00 08/06/16 09:50 (Miralax) 17 gm DAILY PO 08/02/16 09:00 08/06/16 09:50 (Pepcid) 10 mg BID PO 08/01/16 21:00 08/06/16 09:50 Patient Own Medication PT OWN MED: COMBI... Q12HR EACH EYE 08/01/16 21:00 Hold Patient Own Medication PT OWN MED: NAMENDA... DAILY PO 08/01/16 16:00 Hold (Xalatan 0.005% Opt Soln) 1 drop HS EACH EYE 08/01/16 21:00 08/05/16 21:26 (Senokot) 17.2 mg DAILY PO 08/01/16 16:00 08/06/16 09:50 (Lanoxin) 0.125 mg DAILY PO 08/03/16 09:00 08/06/16 09:50 (SEROquel) 25 mg HS PO 08/02/16 21:00 08/05/16 21:27 (Lovenox Inj) 30 mg Q24H SQ 08/03/16 11:00 08/06/16 09:53 (Ferrous Sulfate) 325 mg DAILY PO 08/03/16 11:00 08/06/16 09:50 (Lopressor) 50 mg Q12HR PO 08/04/16 21:00 08/06/16 09:50 (Macrobid) 100 mg BIDPC PO 08/05/16 09:00 08/06/16 09:51 (Vasotec) 2.5 mg BID PO 08/05/16 12:00 08/06/16 09:50 (Cardizem) 30 mg Q8HR PO 08/06/16 09:15 08/06/16 09:53 A/P Assessment and Plan NSTEMI The patient was found to have a troponin that peaked at 16.1. EKG with T-wave inversions in the lateral leads with some ST depression. She denies chest pain or shortness of breath. Chest x-ray with findings of CHF. Cardiology consult appreciated. LDL 47. - Continue cardiac regimen. - Cardiology to decide on medical management versus catheterization in the a.m. - telemetry. A fib with RVR The pt went into A fib with RVR. She was started on a diltiazem gtt. - Increased Lopressor to 50 mg by mouth twice a day. Cardizem added by cardiology. - telemetry. CHF BNP markedly elevated. CXR consistent with CHF. Appears Euvolemic. Echo shows reduced EF and LAD wall motion abnormality. - continue cardiac regimen. - diurese as needed. Supratherapeutic INR The pt is on Coumadin for history of CVA. She lives in an [facility] and has frequent falls. Head CT negative for bleed. - d/c Coumadin. - Vitamin K per cardiology. - follow INR. 1.6 08/02. Dementia The pt is on Namenda. She has frequent falls and resides in an [facility]. Per the patient's daughter she is normally independent but when she comes to Hospital she always becomes disoriented. She follows with Dr. Schultz from neurology. Appreciate neurology consult. - PT/OT/ case management consult. - continue Namenda. - neurology consult requested to help assess if candidate for cardiac catheterization. Anemia Hemoglobin significantly lower than on previous admission. INR elevated as above. B12, folate and iron studies noted. - hold Coumadin. - follow CBC and transfuse as needed. Stable. - check Hemoccult. UTI Urine culture with no growth. Repeat UA indicative of infection but urine culture also with no growth. - DC nitrofurantoin. HUDSON Creatinine not far from baseline. Stable 2/. - follow BMP and avoid nephrotoxins. Abdominal pain Noted on examination. The patient is not complaining of abdominal pain otherwise. LFTs, KUB unremarkable. - Continue famotidine. PPx: Lovenox. Discharge Planning Awaiting further cardiology evaluation. Tramaine Easley DO Aug 06, 2016 14:12
[2016-08-06] MEDS ORDERED: SODIUM CHLOR 0.9% 250 ML INJ 250 ML IV ONE (18:15)
[2016-08-06] MEDS: LATANOPROST 0.005% OPHT SOLN 2.5 ML BTL EACH EYE SCH (20:05)
[2016-08-06] MEDS: QUEtiapine FUMARATE 25 MG TAB PO SCH (20:06)
[2016-08-06] MEDS: ATORVASTATIN 20 MG TAB PO SCH (20:06)
[2016-08-07] VITALS (20 sets, daily range): BP systolic 117–147; BP diastolic 57–74; PULSE 56–88; RESP 14–18; TEMP 98–98.3; O2SAT 93–95
[2016-08-07] MEDS: DILTIAZEM HCL 30 MG TAB PO SCH ×3 (05:54→21:00)
--- NOTE | 2016-08-07 07:19 | PD.CARD.PN ---
Subjective Subjective Remarks denies any CV complaints (A[place] Jasso) Objective Vital Signs / I&O Vital Signs Date Time Temp Pulse Resp B/P Pulse Ox O2 Delivery O2 Flow Rate FiO2 08/07/16 06:00 72 08/07/16 04:00 98.0 67 18 133/73 93 08/07/16 04:00 67 08/07/16 02:00 69 08/07/16 01:00 70 08/06/16 23:00 65 08/06/16 23:00 98.0 65 18 123/55 93 08/06/16 22:00 59 08/06/16 21:00 60 08/06/16 20:00 72 08/06/16 19:00 98.4 72 18 136/70 95 08/06/16 18:04 78 08/06/16 17:07 67 08/06/16 16:00 70 08/06/16 15:00 98.5 70 17 118/57 95 08/06/16 15:00 70 08/06/16 14:08 70 08/06/16 13:00 72 08/06/16 12:00 66 08/06/16 11:30 98.1 66 18 116/65 94 08/06/16 11:00 75 08/06/16 10:00 82 08/06/16 09:00 84 08/06/16 08:00 97.8 80 14 133/70 95 08/06/16 08:00 122 I/O 08/06/16 08/06/16 08/06/16 08/07/16 08/07/16 08/07/16 07:00 15:00 23:00 07:00 15:00 23:00 Intake Total 240 ml 240 ml 690 ml 325 ml Output Total 250 ml 250 ml 225 ml Balance -10 ml 240 ml 440 ml 100 ml Intake Oral 240 ml 240 ml 240 ml 75 ml IV Total 450 ml 250 ml Output Urine Total 250 ml 250 ml 225 ml # Bowel Movements 0 0 Physical Exam GENERAL: Well-nourished, well-developed patient in no apparent distress. NECK: No JVD. No carotid bruit. CARDIOVASCULAR: Regular rate and rhythm. S1/S2 no murmur, rub, or gallop. RESPIRATORY: No accessory muscle use. Clear to auscultation. Breath sounds equal bilaterally. GASTROINTESTINAL: Abdomen soft, non-tender, nondistended. MUSCULOSKELETAL: Extremities without clubbing, cyanosis, or edema. (Aquiles Jasso) Assessment and Plan Problem List: (1) NSTEMI (non-ST elevated myocardial infarction) (2) Hypertension (3) Hyperlipidemia (4) Paroxysmal a-fib Assessment and Plan NSTEMI - currently CP free. asa statin bb. Continue medical management in the face of ongoing AMS. Sign off afib - RVR. now converted to SR (Aquiles Jasso) Assessment and Plan no invasive approach. FU in OPD once DC'd (Tj Delgado MD) Aquiles Jasso Aug 07, 2016 07:19 Tj Delgado MD Aug 07, 2016 08:01
[2016-08-07 08:27] LABS: INTERNATIONAL NORMALIZED RATIO 1.1 RATIO; PROTHROMBIN TIME - PATIENT 12.6 SEC (9.8-11.6)
[2016-08-07] MEDS: FERROUS SULFATE 325 MG (65 MG ELEMENTAL IRON) TAB PO SCH (08:37)
[2016-08-07] MEDS: DIGOXIN 0.125 MG TAB PO SCH (08:37)
[2016-08-07] MEDS: ENALAPRIL MALEATE 2.5 MG TAB PO SCH ×2 (08:37→20:35)
[2016-08-07] MEDS: METOPROLOL TARTRATE 50 MG TAB PO SCH ×2 (08:37→20:35)
[2016-08-07] MEDS: SENNOSIDES 8.6 MG TAB PO SCH (08:37)
[2016-08-07] MEDS: FAMOTIDINE 20 MG TAB PO SCH ×2 (08:37→20:35)
[2016-08-07] MEDS: ASPIRIN EC 81 MG TABEC PO SCH (08:37)
[2016-08-07] MEDS: MULTIVITAMINS/MINERALS THERAPEUTIC TAB PO SCH (08:37)
[2016-08-07] MEDS: POLYETHYLENE GLYCOL 17 GM PKG PO SCH (08:37)
[2016-08-07] MEDS: SODIUM CHLORIDE 0.9% FLUSH 5 ML FLUSH FLUSH SCH ×2 (08:37→20:36)
[2016-08-07 08:56] LABS: BICARBONATE 23.2 MEQ/L (21.0-32.0); MAGNESIUM 2.5 MG/DL (1.5-2.5); POTASSIUM 3.9 MEQ/L (3.5-5.1)
[2016-08-07] MEDS ORDERED: FERR325T PO (09:57)
[2016-08-07] MEDS ORDERED: ENAL2.5T PO (09:58)
--- NOTE | 2016-08-07 10:29 | HHI.PR ---
Subjective Remarks resting comfortably with no distress. denies any chest pain or sob. Objective Vitals Vital Signs Date Time Temp Pulse Resp B/P Pulse Ox O2 Delivery O2 Flow Rate FiO2 08/07/16 08:00 98.3 68 14 117/57 95 08/07/16 08:00 73 08/07/16 06:00 72 08/07/16 04:00 98.0 67 18 133/73 93 08/07/16 04:00 67 08/07/16 02:00 69 08/07/16 01:00 70 08/06/16 23:00 65 08/06/16 23:00 98.0 65 18 123/55 93 08/06/16 22:00 59 08/06/16 21:00 60 08/06/16 20:00 72 08/06/16 19:00 98.4 72 18 136/70 95 08/06/16 18:04 78 08/06/16 17:07 67 08/06/16 16:00 70 08/06/16 15:00 98.5 70 17 118/57 95 08/06/16 15:00 70 08/06/16 14:08 70 08/06/16 13:00 72 08/06/16 12:00 66 08/06/16 11:30 98.1 66 18 116/65 94 08/06/16 11:00 75 08/06/16 10:00 82 I/O 08/06/16 08/06/16 08/06/16 08/07/16 08/07/16 08/07/16 07:00 15:00 23:00 07:00 15:00 23:00 Intake Total 240 ml 240 ml 690 ml 325 ml Output Total 250 ml 250 ml 225 ml Balance -10 ml 240 ml 440 ml 100 ml Intake Oral 240 ml 240 ml 240 ml 75 ml IV Total 450 ml 250 ml Output Urine Total 250 ml 250 ml 225 ml Bladder Scan Volume Amount 980 ml # Bowel Movements 0 0 Result Diagram: 08/05/16 0615 08/07/16 0718 Imaging Last Impressions Abdomen X-Ray 08/05/16 0000 Signed Impressions: Service Date/Time: Friday, August 05, 2016 08:43 - CONCLUSION: Gaseous distention without obstruction. No acute abnormalities. Iam Moralez MD Head CT 07/31/16 1315 Signed Impressions: Service Date/Time: Sunday, July 31, 2016 14:31 - CONCLUSION: Atrophy with moderate vascular calcifications, negative for acute process. Kamari Peoples MD FACR Chest X-Ray 07/31/16 1315 Signed Impressions: Service Date/Time: Sunday, July 31, 2016 13:26 - CONCLUSION: 1. Cardiomegaly and findings of congestive heart failure. Julio Sims MD Hip and Pelvis X-Ray 07/31/16 0000 Signed Impressions: Service Date/Time: Sunday, July 31, 2016 13:30 - CONCLUSION: Negative for fracture or dislocation. Followup in 7-10 days is suggested if symptoms persist. Kamari Peoples MD FACR Aorta CTA 07/31/16 0000 Signed Impressions: Service Date/Time: Sunday, July 31, 2016 17:05 - CONCLUSION: Extensive atherosclerotic vascular calcifications with no evidence of aneurysm . Degenerative findings of the lower lumbar spine. Moderate size retrocardiac hiatal hernia Andrey Warren MD Objective Remarks GENERAL: This is a well-nourished, well-developed patient, in no apparent distress. CARDIOVASCULAR: Regular rate and regular rhythm without murmurs, gallops, or rubs. RESPIRATORY: Clear to auscultation. Breath sounds equal bilaterally. No wheezes , rales, or rhonchi. GASTROINTESTINAL: Abdomen soft, non-tender, nondistended. Normal, active bowel sounds MUSCULOSKELETAL: Extremities without clubbing, cyanosis, or edema. NEURO: Awake and alert Procedures none Medications and IVs Current Medications IV Flush (NS Flush) 2 ml UNSCH PRN IVF FLUSH AFTER USING IV ACCESS Last administered on 07/31/16 16:05; Start 07/31/16 at 13:15; Stop 07/31/16 at 18:28 ; Status DC Diphenhydramine HCl (Benadryl Inj) 25 mg ONCE ONCE IV PUSH Last administered on 07/31/16 16:05; Start 07/31/16 at 15:30; Stop 07/31/16 at 15:31; Status DC Aspirin (Aspirin Chew) 324 mg ONCE ONCE CHEW Last administered on 07/31/16 15 :50; Start 07/31/16 at 15:45; Stop 07/31/16 at 15:46; Status DC Methylprednisolone Sodium Succinate (SoluMEDROL INJ) 40 mg ONCE ONCE IV PUSH Last administered on 07/31/16 16:05; Start 07/31/16 at 16:00; Stop 07/31/16 at 16:01; Status DC Iohexol (Omnipaque 350 Inj) 100 ml STK-MED ONCE IV Last administered on 17:37; Start 07/31/16 at 17:37; Stop 07/31/16 at 17:38; Status DC IV Flush (NS Flush) 2 ml UNSCH PRN FLUSH FLUSH AFTER USING IV ACCESS Last administered on 08/02/16 04:48; Start 07/31/16 at 18:30 IV Flush (NS Flush) 2 ml BID FLUSH Last administered on 08/07/16 08:37; Start 07/31/16 at 21:00 Ondansetron HCl (Zofran Inj) 4 mg Q6H PRN IVP NAUSEA OR VOMITING; Start at 18:30; Stop 08/02/16 at 13:29; Status DC Naloxone HCl (Narcan Inj) 0.4 mg UNSCH PRN IV SEE LABEL COMMENTS; Start at 18:30 Metoprolol Tartrate (Lopressor) 25 mg Q12HR PO Last administered on 07/31/16 21:42; Start 07/31/16 at 21:00; Stop 08/01/16 at 09:55; Status DC Aspirin (Aspirin) 325 mg DAILY PO ; Start 08/01/16 at 09:00; Stop 08/01/16 at 10 :30; Status DC Nitroglycerin (Nitrostat Sl) 0.4 mg Q5M PRN SL X 3 doses for chest pain; Start 07/31/16 at 18:30 Doxycycline Hyclate (Vibramycin) 100 mg ONCE ONCE PO ; Start 07/31/16 at 19:00 ; Stop 07/31/16 at 19:01; Status Cancel Furosemide (Lasix Inj) 20 mg ONCE ONCE IV PUSH Last administered on 07/31/16 20:11; Start 07/31/16 at 19:15; Stop 07/31/16 at 19:16; Status DC Doxycycline Hyclate (Vibratab) 100 mg ONCE ONCE PO Last administered on 20:11; Start 07/31/16 at 20:00; Stop 07/31/16 at 20:01; Status DC Morphine Sulfate (Morphine Inj) 2 mg Q30M PRN IV PUSH BREAKTHROUGH PAIN; Start 08/01/16 at 10:00; Stop 08/01/16 at 11:23; Status DC Aspirin (Aspirin Chew) 81 mg DAILY PO ; Start 08/02/16 at 09:00; Stop 08/02/16 at 09:00; Status DC Prasugrel (Effient) 60 mg NOW ONCE PO ; Start 08/01/16 at 10:30; Stop 08/01/16 at 11:23; Status DC Prasugrel (Effient) 10 mg DAILY PO ; Start 08/02/16 at 09:00; Stop 08/02/16 at 09: 00; Status DC Bacitracin (Bacitracin Oint Packet) 0.9 gm ONCE ONCE TOP ; Start 08/01/16 at 11 :00; Stop 08/01/16 at 11:23; Status DC Lidocaine HCl (Xylocaine 2% Jelly) 1 applic UNSCH X1 PRN TOP CATHETER INSERTION ; Start 08/01/16 at 10:00; Stop 08/01/16 at 11:23; Status DC IV Flush (NS Flush) 2 ml BID IVF ; Start 08/01/16 at 21:00; Stop 08/01/16 at 21: 00; Status DC Miscellaneous Information 1 1 ONCE ONCE XX ; Start 08/01/16 at 10:00; Stop at 11:23; Status DC Bivalirudin/ Sodium Chloride (Angiomax Inj/NS Inj) 50 ml @ 0 mls/hr Q0M IV ; Start 08/01/16 at 09:49; Stop 08/01/16 at 11:23; Status DC Metoprolol Tartrate (Lopressor) 12.5 mg Q12HR PO Last administered on 08/04/16 10:06; Start 08/01/16 at 21:00; Stop 08/04/16 at 11:30; Status DC Miscellaneous (Pill Splitter) 1 ea UNSCH PRN OTHER SEE LABEL COMMENTS; Start at 10:30 Atorvastatin Calcium (Lipitor) 20 mg HS PO Last administered on 08/06/16 20:06 ; Start 08/01/16 at 21:00 Aspirin (Ecotrin Ec) 81 mg DAILY PO Last administered on 08/07/16 08:37; Start 08/02/16 at 09:00 Phytonadione (Mephyton) 5 mg ONCE ONCE PO Last administered on 08/01/16 12:58 ; Start 08/01/16 at 11:45; Stop 08/01/16 at 11:46; Status DC Multivitamins/ Minerals Therapeutic (Theragran M Tab) 1 tab DAILY PO Last administered on 08/07/16 08:37; Start 08/02/16 at 09:00 Polyethylene Glycol (Miralax) 17 gm DAILY PO Last administered on 08/07/16 08: 37; Start 08/02/16 at 09:00 Famotidine (Pepcid) 10 mg BID PO Last administered on 08/07/16 08:37; Start at 21:00 Patient Own Medication PT OWN MED: COMBI... Q12HR EACH EYE ; Start 08/01/16 at 21:00; Status Hold Patient Own Medication PT OWN MED: NAMENDA... DAILY PO ; Start 08/01/16 at 16:00 ; Status Hold Latanoprost 1 drop 1 drop HS EACH EYE Last administered on 08/06/16 20:05; Start 08/01/16 at 21:00 Sodium Chloride (1/2 NS 1000 ml Inj) 1,000 ml @ 75 mls/hr [id number] IV ; Start at 14:00; Stop 08/01/16 at 14:09; Status DC Sennosides (Senokot) 17.2 mg DAILY PO Last administered on 08/06/16 09:50; Start 08/01/16 at 16:00 Lorazepam (Ativan Inj) 0.5 mg ONCE ONCE IV PUSH Last administered on 08/02/16 04:47; Start 08/02/16 at 04:45; Stop 08/02/16 at 04:46; Status DC Diltiazem HCl 10 mg 10 mg ONCE ONCE IV Last administered on 08/02/16 06:10; Start 08/02/16 at 06:00; Stop 08/02/16 at 06:05; Status DC Diltiazem HCl/ Sodium Chloride (Cardizem Inj/NS Inj) 125 ml @ 0 mls/hr TITRATE IV Last administered on 08/02/16 08:40; Start 08/02/16 at 08:30; Stop 08/03/16 at 10:51; Status DC Digoxin (Lanoxin Inj) 0.25 mg Q6H IVS Last administered on 08/02/16 20:40; Start 08/02/16 at 14:45; Stop 08/02/16 at 20:46; Status DC Digoxin (Lanoxin) 0.125 mg DAILY PO Last administered on 08/07/16 08:37; Start 08/03/16 at 09:00 Potassium Bicarb/ Potassium Chloride (K-Lyte Cl Eff) 25 meq ONCE ONCE PO ; Start 08/02/16 at 09:45; Stop 08/02/16 at 09:45; Status DC Potassium Chloride (KCl) 30 meq ONCE ONCE PO Last administered on 08/02/16 09: 45; Start 08/02/16 at 09:45; Stop 08/02/16 at 09:46; Status DC Quetiapine Fumarate (SEROquel) 25 mg HS PO Last administered on 08/06/16 20:06 ; Start 08/02/16 at 21:00 Enoxaparin Sodium (Lovenox Inj) 30 mg Q24H SQ Last administered on 08/06/16 09: 53; Start 08/03/16 at 11:00 Ferrous Sulfate (Ferrous Sulfate) 325 mg DAILY PO Last administered on 08:37; Start 08/03/16 at 11:00 Diltiazem HCl (Cardizem Inj) 15 mg ONCE ONCE IV Last administered on 08/04/16 03:07; Start 08/04/16 at 03:00; Stop 08/04/16 at 03:01; Status DC Metoprolol Tartrate (Lopressor Inj) 5 mg ONCE ONCE IV PUSH Last administered on 08/04/16 05:54; Start 08/04/16 at 05:45; Stop 08/04/16 at 05:46; Status DC Metoprolol Tartrate (Lopressor) 50 mg Q12HR PO Last administered on 08/07/16 08 :37; Start 08/04/16 at 21:00 Metoprolol Tartrate (Lopressor) 50 mg ONCE ONCE PO Last administered on 12:03; Start 08/04/16 at 11:30; Stop 08/04/16 at 11:36; Status DC Nitrofurantoin Macrocrystals (Macrobid) 100 mg BIDPC PO Last administered on 09:51; Start 08/05/16 at 09:00; Stop 08/06/16 at 14:11; Status DC Enalapril Maleate (Vasotec) 2.5 mg BID PO Last administered on 08/07/16 08:37; Start 08/05/16 at 12:00 Metoprolol Tartrate (Lopressor Inj) 5 mg ONCE ONCE IV PUSH Last administered on 08/06/16 00:55; Start 08/06/16 at 00:45; Stop 08/06/16 at 00:48; Status DC Metoprolol Tartrate 5 mg 5 mg ONCE ONCE IV PUSH Last administered on 08/06/16 03:24; Start 08/06/16 at 02:00; Stop 08/06/16 at 02:01; Status DC Sodium Chloride 500 ml @ 500 mls/hr BOLUS ONCE IV Last administered on 02:07; Start 08/06/16 at 02:00; Stop 08/06/16 at 02:59; Status DC Sodium Chloride (NS 500 ml Inj) 500 ml @ 500 mls/hr BOLUS ONCE IV Last administered on 08/06/16 07:00; Start 08/06/16 at 07:00; Stop 08/06/16 at 07:59; Status DC Diltiazem HCl 30 mg 30 mg Q8HR PO Last administered on 08/07/16 05:54; Start at 09:15 Sodium Chloride (NS 250 ml Inj) 250 ml @ 50 mls/hr ONCE ONCE IV ; Start at 18:15; Stop 08/06/16 at 23:14; Status DC A/P Assessment and Plan A/P NSTEMI The patient was found to have a troponin that peaked at 16.1. EKG with T-wave inversions in the lateral leads with some ST depression. She denies chest pain or shortness of breath. Chest x-ray with findings of CHF. Cardiology consult appreciated. LDL 47. - Continue cardiac regimen. - Cardiology decided to proceed with non-invasive approach- f/u outpatient. A fib with RVR The pt went into A fib with RVR. She was started on a diltiazem gtt. - Increased Lopressor to 50 mg by mouth twice a day. Cardizem added by cardiology. -dc'ed coumadin due to dementia and history of falls. CHF BNP markedly elevated. CXR consistent with CHF. Appears Euvolemic. Echo shows reduced EF and LAD wall motion abnormality. - continue cardiac regimen. - diurese as needed. Supratherapeutic INR The pt is on Coumadin for history of CVA. She lives in an GROUP HOME and has frequent falls. Head CT negative for bleed. - d/c'ed Coumadin. Dementia The pt is on Namenda. She has frequent falls and resides in an [facility]. Per the patient's daughter she is normally independent but when she comes to Hospital she always becomes disoriented. She follows with Dr. Schultz from neurology. Appreciate neurology consult. - PT/OT/ case management consult. - continue Namenda. - neurology consult appreciated- further work-up as outpatient. Anemia fairly stable H/H- f/u as outpatient. UTI Urine culture with no growth. Repeat UA indicative of infection but urine culture also with no growth. - DC nitrofurantoin. [place]ON Creatinine not far from baseline. Stable 2/4. -avoid nephrotoxins. Abdominal pain Noted on examination. The patient is not complaining of abdominal pain otherwise. LFTs, KUB unremarkable. - Continue famotidine. PPx: Lovenox. Discharge Planning d/w the POA- will consult case management for SNF. Farooq Peraza MD Aug 07, 2016 09:42
[2016-08-07] MEDS: ENOXAPARIN SODIUM 30 MG/0.3 ML SYRINGE SQ SCH (11:00)
[2016-08-07] MEDS: ATORVASTATIN 20 MG TAB PO SCH (20:35)
[2016-08-07] MEDS: QUEtiapine FUMARATE 25 MG TAB PO SCH (20:35)
[2016-08-07] MEDS: LATANOPROST 0.005% OPHT SOLN 2.5 ML BTL EACH EYE SCH (20:36)
[2016-08-08] VITALS (34 sets, daily range): BP systolic 114–149; BP diastolic 54–89; PULSE 62–142; RESP 16–22; TEMP 97.5–98.3; O2SAT 93–95
[2016-08-08] MEDS ORDERED: DILTIAZEM HCL 25 MG/5 ML VIAL IV ONE (04:30)
[2016-08-08] MEDS: DILTIAZEM HCL 30 MG TAB PO SCH ×3 (05:30→17:25)
[2016-08-08 06:01] LABS: AUTOMATED NEUTROPHIL # 5.1 TH/MM3 (1.8-7.7); BASOPHIL # 0.1 TH/MM3 (0-0.2); BASOPHIL % 0.8 % (0.0-2.0); EOSINOPHIL # 0.2 TH/MM3 (0-0.4); EOSINOPHIL % 3.3 % (0.0-4.0); HEMATOCRIT 31.1 % (35.0-46.0); HEMO FLAGS DIFF FINAL; LYMPH % 16.3 % (9.0-44.0); LYMPHOCYTE # 1.2 TH/MM3 (1.0-4.8); MEAN CELL VOLUME 87.7 FL (80.0-100.0); MONO % 11.5 % (0.0-8.0); NEUT % 68.1 % (16.0-70.0); PLATELET COUNT 464 TH/MM3 (150-450); RED BLOOD COUNT 3.55 MIL/MM3 (4.00-5.30); RED CELL DISTRIBUTION WIDTH 14.5 % (11.6-17.2); WHITE BLOOD COUNT 7.4 TH/MM3 (4.0-11.0)
[2016-08-08 06:22] LABS: POTASSIUM 3.8 MEQ/L (3.5-5.1)
[2016-08-08] MEDS: FERROUS SULFATE 325 MG (65 MG ELEMENTAL IRON) TAB PO SCH (08:14)
[2016-08-08] MEDS: SENNOSIDES 8.6 MG TAB PO SCH (08:14)
[2016-08-08] MEDS: FAMOTIDINE 20 MG TAB PO SCH ×2 (08:14→20:46)
[2016-08-08] MEDS: METOPROLOL TARTRATE 50 MG TAB PO SCH ×2 (08:15→20:46)
[2016-08-08] MEDS: MULTIVITAMINS/MINERALS THERAPEUTIC TAB PO SCH (08:15)
[2016-08-08] MEDS: ENALAPRIL MALEATE 2.5 MG TAB PO SCH ×2 (08:15→20:46)
[2016-08-08] MEDS: ASPIRIN EC 81 MG TABEC PO SCH (08:15)
[2016-08-08] MEDS: POLYETHYLENE GLYCOL 17 GM PKG PO SCH (08:16)
[2016-08-08] MEDS: DIGOXIN 0.125 MG TAB PO SCH (08:16)
[2016-08-08] MEDS: SODIUM CHLORIDE 0.9% FLUSH 5 ML FLUSH FLUSH SCH ×2 (08:27→20:55)
--- NOTE | 2016-08-08 09:49 | HHI.PR ---
Subjective Remarks in no acute distress. denies any chest pain. d/w the RN; went into a-fib with rapid rate and received a dose of IV cardizem. Objective Vitals Vital Signs Date Time Temp Pulse Resp B/P Pulse Ox O2 Delivery O2 Flow Rate FiO2 08/08/16 09:08 73 08/08/16 08:35 73 08/08/16 07:51 97.8 124 17 123/61 94 08/08/16 07:26 124 08/08/16 07:13 103 08/08/16 06:00 116 08/08/16 05:00 108 08/08/16 04:00 136 08/08/16 04:00 97.8 142 20 114/89 94 08/08/16 03:00 62 08/08/16 02:00 68 08/08/16 01:00 74 08/08/16 00:00 97.5 64 22 114/54 93 08/08/16 00:00 62 08/07/16 23:00 64 08/07/16 22:00 68 08/07/16 21:00 80 08/07/16 20:00 98.1 88 18 147/74 94 08/07/16 20:00 86 08/07/16 20:00 70 08/07/16 18:00 70 08/07/16 17:00 74 08/07/16 16:00 98.1 67 16 128/70 95 08/07/16 16:00 71 08/07/16 15:00 74 08/07/16 14:00 68 08/07/16 13:00 72 08/07/16 12:00 61 08/07/16 12:00 98.2 68 16 137/68 94 08/07/16 11:00 62 08/07/16 10:00 56 I/O 08/07/16 08/07/16 08/07/16 08/08/16 08/08/16 08/08/16 07:00 15:00 23:00 07:00 15:00 23:00 Intake Total 325 ml 480 ml 480 ml Output Total 225 ml 250 ml Balance 100 ml 230 ml 480 ml Intake Oral 75 ml 480 ml 480 ml IV Total 250 ml Output Urine Total 225 ml 250 ml Bladder Scan Volume Amount 980 ml # Voids 1 0 # Bowel Movements 0 0 0 Result Diagram: 08/08/16 0440 08/08/16 0440 Imaging Last Impressions Abdomen X-Ray 08/05/16 0000 Signed Impressions: Service Date/Time: Friday, August 05, 2016 08:43 - CONCLUSION: Gaseous distention without obstruction. No acute abnormalities. Iam Moralez MD Head CT 07/31/16 1315 Signed Impressions: Service Date/Time: Sunday, July 31, 2016 14:31 - CONCLUSION: Atrophy with moderate vascular calcifications, negative for acute process. Kamari Peoples MD FACR Chest X-Ray 07/31/16 1315 Signed Impressions: Service Date/Time: Sunday, July 31, 2016 13:26 - CONCLUSION: 1. Cardiomegaly and findings of congestive heart failure. Julio Sims MD Hip and Pelvis X-Ray 07/31/16 0000 Signed Impressions: Service Date/Time: Sunday, July 31, 2016 13:30 - CONCLUSION: Negative for fracture or dislocation. Followup in 7-10 days is suggested if symptoms persist. Kamari Peoples MD FACR Aorta CTA 07/31/16 0000 Signed Impressions: Service Date/Time: Sunday, July 31, 2016 17:05 - CONCLUSION: Extensive atherosclerotic vascular calcifications with no evidence of aneurysm . Degenerative findings of the lower lumbar spine. Moderate size retrocardiac hiatal hernia Andrey Warren MD Objective Remarks GENERAL: This is a well-nourished, well-developed patient, in no apparent distress. CARDIOVASCULAR: Regular rate and regular rhythm without murmurs, gallops, or rubs. RESPIRATORY: Clear to auscultation. Breath sounds equal bilaterally. No wheezes , rales, or rhonchi. GASTROINTESTINAL: Abdomen soft, non-tender, nondistended. Normal, active bowel sounds MUSCULOSKELETAL: Extremities without clubbing, cyanosis, or edema. NEURO: Awake and alert Procedures none Medications and IVs Current Medications IV Flush (NS Flush) 2 ml UNSCH PRN IVF FLUSH AFTER USING IV ACCESS Last administered on 07/31/16 16:05; Start 07/31/16 at 13:15; Stop 07/31/16 at 18:28 ; Status DC Diphenhydramine HCl (Benadryl Inj) 25 mg ONCE ONCE IV PUSH Last administered on 07/31/16 16:05; Start 07/31/16 at 15:30; Stop 07/31/16 at 15:31; Status DC Aspirin (Aspirin Chew) 324 mg ONCE ONCE CHEW Last administered on 07/31/16 15 :50; Start 07/31/16 at 15:45; Stop 07/31/16 at 15:46; Status DC Methylprednisolone Sodium Succinate (SoluMEDROL INJ) 40 mg ONCE ONCE IV PUSH Last administered on 07/31/16 16:05; Start 07/31/16 at 16:00; Stop 07/31/16 at 16:01; Status DC Iohexol (Omnipaque 350 Inj) 100 ml STK-MED ONCE IV Last administered on 17:37; Start 07/31/16 at 17:37; Stop 07/31/16 at 17:38; Status DC IV Flush (NS Flush) 2 ml UNSCH PRN FLUSH FLUSH AFTER USING IV ACCESS Last administered on 08/02/16 04:48; Start 07/31/16 at 18:30 IV Flush (NS Flush) 2 ml BID FLUSH Last administered on 08/08/16 08:27; Start 07/31/16 at 21:00 Ondansetron HCl (Zofran Inj) 4 mg Q6H PRN IVP NAUSEA OR VOMITING; Start at 18:30; Stop 08/02/16 at 13:29; Status DC Naloxone HCl (Narcan Inj) 0.4 mg UNSCH PRN IV SEE LABEL COMMENTS; Start at 18:30 Metoprolol Tartrate (Lopressor) 25 mg Q12HR PO Last administered on 07/31/16 21:42; Start 07/31/16 at 21:00; Stop 08/01/16 at 09:55; Status DC Aspirin (Aspirin) 325 mg DAILY PO ; Start 08/01/16 at 09:00; Stop 08/01/16 at 10 :30; Status DC Nitroglycerin (Nitrostat Sl) 0.4 mg Q5M PRN SL X 3 doses for chest pain; Start 07/31/16 at 18:30 Doxycycline Hyclate (Vibramycin) 100 mg ONCE ONCE PO ; Start 07/31/16 at 19:00 ; Stop 07/31/16 at 19:01; Status Cancel Furosemide (Lasix Inj) 20 mg ONCE ONCE IV PUSH Last administered on 07/31/16 20:11; Start 07/31/16 at 19:15; Stop 07/31/16 at 19:16; Status DC Doxycycline Hyclate (Vibratab) 100 mg ONCE ONCE PO Last administered on 20:11; Start 07/31/16 at 20:00; Stop 07/31/16 at 20:01; Status DC Morphine Sulfate (Morphine Inj) 2 mg Q30M PRN IV PUSH BREAKTHROUGH PAIN; Start 08/01/16 at 10:00; Stop 08/01/16 at 11:23; Status DC Aspirin (Aspirin Chew) 81 mg DAILY PO ; Start 08/02/16 at 09:00; Stop 08/02/16 at 09:00; Status DC Prasugrel (Effient) 60 mg NOW ONCE PO ; Start 08/01/16 at 10:30; Stop 08/01/16 at 11:23; Status DC Prasugrel (Effient) 10 mg DAILY PO ; Start 08/02/16 at 09:00; Stop 08/02/16 at 09: 00; Status DC Bacitracin (Bacitracin Oint Packet) 0.9 gm ONCE ONCE TOP ; Start 08/01/16 at 11 :00; Stop 08/01/16 at 11:23; Status DC Lidocaine HCl (Xylocaine 2% Jelly) 1 applic UNSCH X1 PRN TOP CATHETER INSERTION ; Start 08/01/16 at 10:00; Stop 08/01/16 at 11:23; Status DC IV Flush (NS Flush) 2 ml BID IVF ; Start 08/01/16 at 21:00; Stop 08/01/16 at 21: 00; Status DC Miscellaneous Information 1 1 ONCE ONCE XX ; Start 08/01/16 at 10:00; Stop at 11:23; Status DC Bivalirudin/ Sodium Chloride (Angiomax Inj/NS Inj) 50 ml @ 0 mls/hr Q0M IV ; Start 08/01/16 at 09:49; Stop 08/01/16 at 11:23; Status DC Metoprolol Tartrate (Lopressor) 12.5 mg Q12HR PO Last administered on 08/04/16 10:06; Start 08/01/16 at 21:00; Stop 08/04/16 at 11:30; Status DC Miscellaneous (Pill Splitter) 1 ea UNSCH PRN OTHER SEE LABEL COMMENTS; Start at 10:30 Atorvastatin Calcium (Lipitor) 20 mg HS PO Last administered on 08/07/16 20:35 ; Start 08/01/16 at 21:00 Aspirin (Ecotrin Ec) 81 mg DAILY PO Last administered on 08/08/16 08:15; Start 08/02/16 at 09:00 Phytonadione (Mephyton) 5 mg ONCE ONCE PO Last administered on 08/01/16 12:58 ; Start 08/01/16 at 11:45; Stop 08/01/16 at 11:46; Status DC Multivitamins/ Minerals Therapeutic (Theragran M Tab) 1 tab DAILY PO Last administered on 08/08/16 08:15; Start 08/02/16 at 09:00 Polyethylene Glycol (Miralax) 17 gm DAILY PO Last administered on 08/08/16 08: 16; Start 08/02/16 at 09:00 Famotidine (Pepcid) 10 mg BID PO Last administered on 08/08/16 08:14; Start at 21:00 Patient Own Medication PT OWN MED: COMBI... Q12HR EACH EYE ; Start 08/01/16 at 21:00; Status Hold Patient Own Medication PT OWN MED: NAMENDA... DAILY PO ; Start 08/01/16 at 16:00 ; Status Hold Latanoprost 1 drop 1 drop HS EACH EYE Last administered on 08/07/16 20:36; Start 08/01/16 at 21:00 Sodium Chloride (1/2 NS 1000 ml Inj) 1,000 ml @ 75 mls/hr [id number] IV ; Start at 14:00; Stop 08/01/16 at 14:09; Status DC Sennosides (Senokot) 17.2 mg DAILY PO Last administered on 08/08/16 08:14; Start 08/01/16 at 16:00 Lorazepam (Ativan Inj) 0.5 mg ONCE ONCE IV PUSH Last administered on 08/02/16 04:47; Start 08/02/16 at 04:45; Stop 08/02/16 at 04:46; Status DC Diltiazem HCl 10 mg 10 mg ONCE ONCE IV Last administered on 08/02/16 06:10; Start 08/02/16 at 06:00; Stop 08/02/16 at 06:05; Status DC Diltiazem HCl/ Sodium Chloride (Cardizem Inj/NS Inj) 125 ml @ 0 mls/hr TITRATE IV Last administered on 08/02/16 08:40; Start 08/02/16 at 08:30; Stop 08/03/16 at 10:51; Status DC Digoxin (Lanoxin Inj) 0.25 mg Q6H IVS Last administered on 08/02/16 20:40; Start 08/02/16 at 14:45; Stop 08/02/16 at 20:46; Status DC Digoxin (Lanoxin) 0.125 mg DAILY PO Last administered on 08/08/16 08:16; Start 08/03/16 at 09:00 Potassium Bicarb/ Potassium Chloride (K-Lyte Cl Eff) 25 meq ONCE ONCE PO ; Start 08/02/16 at 09:45; Stop 08/02/16 at 09:45; Status DC Potassium Chloride (KCl) 30 meq ONCE ONCE PO Last administered on 08/02/16 09: 45; Start 08/02/16 at 09:45; Stop 08/02/16 at 09:46; Status DC Quetiapine Fumarate (SEROquel) 25 mg HS PO Last administered on 08/07/16 20:35 ; Start 08/02/16 at 21:00 Enoxaparin Sodium (Lovenox Inj) 30 mg Q24H SQ Last administered on 08/07/16 11: 00; Start 08/03/16 at 11:00 Ferrous Sulfate (Ferrous Sulfate) 325 mg DAILY PO Last administered on 08:14; Start 08/03/16 at 11:00 Diltiazem HCl (Cardizem Inj) 15 mg ONCE ONCE IV Last administered on 08/04/16 03:07; Start 08/04/16 at 03:00; Stop 08/04/16 at 03:01; Status DC Metoprolol Tartrate (Lopressor Inj) 5 mg ONCE ONCE IV PUSH Last administered on 08/04/16 05:54; Start 08/04/16 at 05:45; Stop 08/04/16 at 05:46; Status DC Metoprolol Tartrate (Lopressor) 50 mg Q12HR PO Last administered on 08/08/16 08 :15; Start 08/04/16 at 21:00 Metoprolol Tartrate (Lopressor) 50 mg ONCE ONCE PO Last administered on 12:03; Start 08/04/16 at 11:30; Stop 08/04/16 at 11:36; Status DC Nitrofurantoin Macrocrystals (Macrobid) 100 mg BIDPC PO Last administered on 09:51; Start 08/05/16 at 09:00; Stop 08/06/16 at 14:11; Status DC Enalapril Maleate (Vasotec) 2.5 mg BID PO Last administered on 08/08/16 08:15; Start 08/05/16 at 12:00 Metoprolol Tartrate (Lopressor Inj) 5 mg ONCE ONCE IV PUSH Last administered on 08/06/16 00:55; Start 08/06/16 at 00:45; Stop 08/06/16 at 00:48; Status DC Metoprolol Tartrate 5 mg 5 mg ONCE ONCE IV PUSH Last administered on 08/06/16 03:24; Start 08/06/16 at 02:00; Stop 08/06/16 at 02:01; Status DC Sodium Chloride 500 ml @ 500 mls/hr BOLUS ONCE IV Last administered on 02:07; Start 08/06/16 at 02:00; Stop 08/06/16 at 02:59; Status DC Sodium Chloride (NS 500 ml Inj) 500 ml @ 500 mls/hr BOLUS ONCE IV Last administered on 08/06/16 07:00; Start 08/06/16 at 07:00; Stop 08/06/16 at 07:59; Status DC Diltiazem HCl 30 mg 30 mg Q8HR PO Last administered on 08/08/16 05:30; Start at 09:15 Sodium Chloride (NS 250 ml Inj) 250 ml @ 50 mls/hr ONCE ONCE IV ; Start at 18:15; Stop 08/06/16 at 23:14; Status DC Diltiazem HCl (Cardizem Inj) 10 mg ONCE ONCE IV Last administered on 2/7/17at 04:33; Start 08/08/16 at 04:30; Stop 08/08/16 at 04:31; Status DC A/P Assessment and Plan A/P NSTEMI The patient was found to have a troponin that peaked at 16.1. EKG with T-wave inversions in the lateral leads with some ST depression. She denies chest pain or shortness of breath. Chest x-ray with findings of CHF. Cardiology consult appreciated. LDL 47. - Continue cardiac regimen. - Cardiology decided to proceed with non-invasive approach- f/u outpatient. A fib with RVR -received a dose of IV Cardizem last night. - Increased Lopressor to 50 mg by mouth twice a day. will increase po cardizem. -dc'ed coumadin due to dementia and history of falls. CHF BNP markedly elevated. CXR consistent with CHF. Appears Euvolemic. Echo shows reduced EF and LAD wall motion abnormality. - continue cardiac regimen. - diurese as needed. Supratherapeutic INR The pt is on Coumadin for history of CVA. She lives in an [place] and has frequent falls. Head CT negative for bleed. - d/c'ed Coumadin. Dementia The pt is on Namenda. She has frequent falls and resides in an [place]. Per the patient's daughter she is normally independent but when she comes to Hospital she always becomes disoriented. She follows with Dr. Schultz from neurology. Appreciate neurology consult. - PT/OT/ case management consult. - continue Namenda. - neurology consult appreciated- further work-up as outpatient. Anemia fairly stable H/H- f/u as outpatient. UTI Urine culture with no growth. Repeat UA indicative of infection but urine culture also with no growth. - DC'ed nitrofurantoin. [place]ON Creatinine not far from baseline. Stable 2/4. -avoid nephrotoxins. Abdominal pain Noted on examination. The patient is not complaining of abdominal pain otherwise. LFTs, KUB unremarkable. - Continue famotidine. PPx: Lovenox. Discharge Planning previously d/w the POA- consulted case management for SNF. dc to SNF in am if HR remains controlled. Farooq Peraza MD Aug 08, 2016 09:49
[2016-08-08] MEDS: ENOXAPARIN SODIUM 30 MG/0.3 ML SYRINGE SQ SCH (11:12)
--- NOTE | 2016-08-08 17:29 | EKG ---
Date Performed: 08/08/2016 Time Performed: 04:12:22 PTAGE: 86 years EKG: CONSIDER ACUTE ST ELEVATION [place] Atrial fibrillation with rapid ventricular response. Inferior ST elevation, CONSIDER ACUTE INFARCT Lateral ST-T changes may be due to myocardial ischemia Low QRS voltages in limb leads Since previous tracing, no significant change noted Abnormal ECG PREVIOUS TRACING : 08/03/2016 13.01 DOCTOR: Rocco Cadet Interpretating Date/Time 08/08/2016 17:28:26
[2016-08-08] MEDS: LATANOPROST 0.005% OPHT SOLN 2.5 ML BTL EACH EYE SCH (20:43)
[2016-08-08] MEDS: ATORVASTATIN 20 MG TAB PO SCH (20:46)
[2016-08-08] MEDS: QUEtiapine FUMARATE 25 MG TAB PO SCH (20:49)
[2016-08-09] VITALS (19 sets, daily range): BP systolic 101–131; BP diastolic 51–75; PULSE 58–110; RESP 16–18; TEMP 97.4–98.2; O2SAT 93–96
[2016-08-09] MEDS: DILTIAZEM HCL 30 MG TAB PO SCH ×2 (01:01→04:41)
[2016-08-09] MEDS: POLYETHYLENE GLYCOL 17 GM PKG PO SCH (09:00)
[2016-08-09] MEDS: SENNOSIDES 8.6 MG TAB PO SCH (09:00)
[2016-08-09] MEDS: FERROUS SULFATE 325 MG (65 MG ELEMENTAL IRON) TAB PO SCH (09:40)
[2016-08-09] MEDS: ENALAPRIL MALEATE 2.5 MG TAB PO SCH ×2 (09:40→21:51)
[2016-08-09] MEDS: ASPIRIN EC 81 MG TABEC PO SCH (09:40)
[2016-08-09] MEDS: MULTIVITAMINS/MINERALS THERAPEUTIC TAB PO SCH (09:40)
[2016-08-09] MEDS: DIGOXIN 0.125 MG TAB PO SCH (09:40)
[2016-08-09] MEDS: FAMOTIDINE 20 MG TAB PO SCH ×2 (09:40→21:51)
[2016-08-09] MEDS: METOPROLOL TARTRATE 50 MG TAB PO SCH ×2 (09:40→21:51)
--- NOTE | 2016-08-09 10:19 | HHI.PR ---
Subjective Remarks in no acute distress. HR noted to stay [id number]'s. d/w the RN and no acute issues over night. Objective Vitals Vital Signs Date Time Temp Pulse Resp B/P Pulse Ox O2 Delivery O2 Flow Rate FiO2 08/09/16 09:00 98.1 110 18 115/59 96 08/09/16 06:00 106 08/09/16 05:00 107 08/09/16 04:00 75 08/09/16 04:00 97.6 64 16 122/75 93 08/09/16 03:00 65 08/09/16 02:00 61 08/09/16 01:00 72 08/09/16 00:00 97.4 76 18 123/65 93 08/09/16 00:00 65 08/08/16 23:00 69 08/08/16 22:00 76 08/08/16 21:00 72 08/08/16 20:00 98.3 75 20 137/67 93 08/08/16 20:00 82 08/08/16 19:00 85 08/08/16 18:07 76 08/08/16 17:48 76 08/08/16 16:12 75 08/08/16 16:00 97.7 75 16 149/71 94 08/08/16 15:14 85 08/08/16 14:30 81 08/08/16 13:37 79 08/08/16 12:58 66 08/08/16 12:09 65 08/08/16 11:51 68 08/08/16 11:46 97.8 67 18 137/73 95 08/08/16 11:00 65 08/08/16 10:41 64 08/08/16 10:17 62 I/O 08/08/16 08/08/16 08/08/16 08/09/16 08/09/16 08/09/16 07:00 15:00 23:00 07:00 15:00 23:00 Intake Total 480 ml 480 ml Balance 480 ml 480 ml Intake Oral 480 ml 480 ml # Voids 0 1 # Bowel Movements 0 1 1 Result Diagram: 08/08/16 0440 08/08/16 0440 Imaging Last Impressions Abdomen X-Ray 08/05/16 0000 Signed Impressions: Service Date/Time: Friday, August 05, 2016 08:43 - CONCLUSION: Gaseous distention without obstruction. No acute abnormalities. Iam Moralez MD Head CT 07/31/16 1315 Signed Impressions: Service Date/Time: Sunday, July 31, 2016 14:31 - CONCLUSION: Atrophy with moderate vascular calcifications, negative for acute process. Kamari Peoples MD FACR Chest X-Ray 07/31/16 1315 Signed Impressions: Service Date/Time: Sunday, July 31, 2016 13:26 - CONCLUSION: 1. Cardiomegaly and findings of congestive heart failure. Julio Sims MD Hip and Pelvis X-Ray 07/31/16 0000 Signed Impressions: Service Date/Time: Sunday, July 31, 2016 13:30 - CONCLUSION: Negative for fracture or dislocation. Followup in 7-10 days is suggested if symptoms persist. Kamari Peoples MD FACR Aorta CTA 07/31/16 0000 Signed Impressions: Service Date/Time: Sunday, July 31, 2016 17:05 - CONCLUSION: Extensive atherosclerotic vascular calcifications with no evidence of aneurysm . Degenerative findings of the lower lumbar spine. Moderate size retrocardiac hiatal hernia Andrey Warren MD Objective Remarks GENERAL: This is a well-nourished, well-developed patient, in no apparent distress. CARDIOVASCULAR: Regular rate and regular rhythm without murmurs, gallops, or rubs. RESPIRATORY: Clear to auscultation. Breath sounds equal bilaterally. No wheezes , rales, or rhonchi. GASTROINTESTINAL: Abdomen soft, non-tender, nondistended. Normal, active bowel sounds MUSCULOSKELETAL: Extremities without clubbing, cyanosis, or edema. NEURO: Awake and alert Procedures none Medications and IVs Current Medications IV Flush (NS Flush) 2 ml UNSCH PRN IVF FLUSH AFTER USING IV ACCESS Last administered on 07/31/16 16:05; Start 07/31/16 at 13:15; Stop 07/31/16 at 18:28 ; Status DC Diphenhydramine HCl (Benadryl Inj) 25 mg ONCE ONCE IV PUSH Last administered on 07/31/16 16:05; Start 07/31/16 at 15:30; Stop 07/31/16 at 15:31; Status DC Aspirin (Aspirin Chew) 324 mg ONCE ONCE CHEW Last administered on 07/31/16 15 :50; Start 07/31/16 at 15:45; Stop 07/31/16 at 15:46; Status DC Methylprednisolone Sodium Succinate (SoluMEDROL INJ) 40 mg ONCE ONCE IV PUSH Last administered on 07/31/16 16:05; Start 07/31/16 at 16:00; Stop 07/31/16 at 16:01; Status DC Iohexol (Omnipaque 350 Inj) 100 ml STK-MED ONCE IV Last administered on 17:37; Start 07/31/16 at 17:37; Stop 07/31/16 at 17:38; Status DC IV Flush (NS Flush) 2 ml UNSCH PRN FLUSH FLUSH AFTER USING IV ACCESS Last administered on 08/02/16 04:48; Start 07/31/16 at 18:30 IV Flush (NS Flush) 2 ml BID FLUSH Last administered on 08/08/16 20:55; Start 07/31/16 at 21:00 Ondansetron HCl (Zofran Inj) 4 mg Q6H PRN IVP NAUSEA OR VOMITING; Start at 18:30; Stop 08/02/16 at 13:29; Status DC Naloxone HCl (Narcan Inj) 0.4 mg UNSCH PRN IV SEE LABEL COMMENTS; Start at 18:30 Metoprolol Tartrate (Lopressor) 25 mg Q12HR PO Last administered on 07/31/16 21:42; Start 07/31/16 at 21:00; Stop 08/01/16 at 09:55; Status DC Aspirin (Aspirin) 325 mg DAILY PO ; Start 08/01/16 at 09:00; Stop 08/01/16 at 10 :30; Status DC Nitroglycerin (Nitrostat Sl) 0.4 mg Q5M PRN SL X 3 doses for chest pain; Start 07/31/16 at 18:30 Doxycycline Hyclate (Vibramycin) 100 mg ONCE ONCE PO ; Start 07/31/16 at 19:00 ; Stop 07/31/16 at 19:01; Status Cancel Furosemide (Lasix Inj) 20 mg ONCE ONCE IV PUSH Last administered on 07/31/16 20:11; Start 07/31/16 at 19:15; Stop 07/31/16 at 19:16; Status DC Doxycycline Hyclate (Vibratab) 100 mg ONCE ONCE PO Last administered on 20:11; Start 07/31/16 at 20:00; Stop 07/31/16 at 20:01; Status DC Morphine Sulfate (Morphine Inj) 2 mg Q30M PRN IV PUSH BREAKTHROUGH PAIN; Start 08/01/16 at 10:00; Stop 08/01/16 at 11:23; Status DC Aspirin (Aspirin Chew) 81 mg DAILY PO ; Start 08/02/16 at 09:00; Stop 08/02/16 at 09:00; Status DC Prasugrel (Effient) 60 mg NOW ONCE PO ; Start 08/01/16 at 10:30; Stop 08/01/16 at 11:23; Status DC Prasugrel (Effient) 10 mg DAILY PO ; Start 08/02/16 at 09:00; Stop 08/02/16 at 09: 00; Status DC Bacitracin (Bacitracin Oint Packet) 0.9 gm ONCE ONCE TOP ; Start 08/01/16 at 11 :00; Stop 08/01/16 at 11:23; Status DC Lidocaine HCl (Xylocaine 2% Jelly) 1 applic UNSCH X1 PRN TOP CATHETER INSERTION ; Start 08/01/16 at 10:00; Stop 08/01/16 at 11:23; Status DC IV Flush (NS Flush) 2 ml BID IVF ; Start 08/01/16 at 21:00; Stop 08/01/16 at 21: 00; Status DC Miscellaneous Information 1 1 ONCE ONCE XX ; Start 08/01/16 at 10:00; Stop at 11:23; Status DC Bivalirudin/ Sodium Chloride (Angiomax Inj/NS Inj) 50 ml @ 0 mls/hr Q0M IV ; Start 08/01/16 at 09:49; Stop 08/01/16 at 11:23; Status DC Metoprolol Tartrate (Lopressor) 12.5 mg Q12HR PO Last administered on 08/04/16 10:06; Start 08/01/16 at 21:00; Stop 08/04/16 at 11:30; Status DC Miscellaneous (Pill Splitter) 1 ea UNSCH PRN OTHER SEE LABEL COMMENTS; Start at 10:30 Atorvastatin Calcium (Lipitor) 20 mg HS PO Last administered on 08/08/16 20:46 ; Start 08/01/16 at 21:00 Aspirin (Ecotrin Ec) 81 mg DAILY PO Last administered on 08/09/16 09:40; Start 08/02/16 at 09:00 Phytonadione (Mephyton) 5 mg ONCE ONCE PO Last administered on 08/01/16 12:58 ; Start 08/01/16 at 11:45; Stop 08/01/16 at 11:46; Status DC Multivitamins/ Minerals Therapeutic (Theragran M Tab) 1 tab DAILY PO Last administered on 08/09/16 09:40; Start 08/02/16 at 09:00 Polyethylene Glycol (Miralax) 17 gm DAILY PO Last administered on 08/08/16 08: 16; Start 08/02/16 at 09:00 Famotidine (Pepcid) 10 mg BID PO Last administered on 08/09/16 09:40; Start at 21:00 Patient Own Medication PT OWN MED: COMBI... Q12HR EACH EYE ; Start 08/01/16 at 21:00; Status Hold Patient Own Medication PT OWN MED: NAMENDA... DAILY PO ; Start 08/01/16 at 16:00 ; Status Hold Latanoprost 1 drop 1 drop HS EACH EYE Last administered on 08/08/16 20:43; Start 08/01/16 at 21:00 Sodium Chloride (1/2 NS 1000 ml Inj) 1,000 ml @ 75 mls/hr [id number] IV ; Start at 14:00; Stop 08/01/16 at 14:09; Status DC Sennosides (Senokot) 17.2 mg DAILY PO Last administered on 08/08/16 08:14; Start 08/01/16 at 16:00 Lorazepam (Ativan Inj) 0.5 mg ONCE ONCE IV PUSH Last administered on 08/02/16 04:47; Start 08/02/16 at 04:45; Stop 08/02/16 at 04:46; Status DC Diltiazem HCl 10 mg 10 mg ONCE ONCE IV Last administered on 08/02/16 06:10; Start 08/02/16 at 06:00; Stop 08/02/16 at 06:05; Status DC Diltiazem HCl/ Sodium Chloride (Cardizem Inj/NS Inj) 125 ml @ 0 mls/hr TITRATE IV Last administered on 08/02/16 08:40; Start 08/02/16 at 08:30; Stop 08/03/16 at 10:51; Status DC Digoxin (Lanoxin Inj) 0.25 mg Q6H IVS Last administered on 08/02/16 20:40; Start 08/02/16 at 14:45; Stop 08/02/16 at 20:46; Status DC Digoxin (Lanoxin) 0.125 mg DAILY PO Last administered on 08/09/16 09:40; Start 08/03/16 at 09:00 Potassium Bicarb/ Potassium Chloride (K-Lyte Cl Eff) 25 meq ONCE ONCE PO ; Start 08/02/16 at 09:45; Stop 08/02/16 at 09:45; Status DC Potassium Chloride (KCl) 30 meq ONCE ONCE PO Last administered on 08/02/16 09: 45; Start 08/02/16 at 09:45; Stop 08/02/16 at 09:46; Status DC Quetiapine Fumarate (SEROquel) 25 mg HS PO Last administered on 08/08/16 20:49 ; Start 08/02/16 at 21:00 Enoxaparin Sodium (Lovenox Inj) 30 mg Q24H SQ Last administered on 08/08/16 11: 12; Start 08/03/16 at 11:00 Ferrous Sulfate (Ferrous Sulfate) 325 mg DAILY PO Last administered on 09:40; Start 08/03/16 at 11:00 Diltiazem HCl (Cardizem Inj) 15 mg ONCE ONCE IV Last administered on 08/04/16 03:07; Start 08/04/16 at 03:00; Stop 08/04/16 at 03:01; Status DC Metoprolol Tartrate (Lopressor Inj) 5 mg ONCE ONCE IV PUSH Last administered on 08/04/16 05:54; Start 08/04/16 at 05:45; Stop 08/04/16 at 05:46; Status DC Metoprolol Tartrate (Lopressor) 50 mg Q12HR PO Last administered on 08/09/16 09 :40; Start 08/04/16 at 21:00 Metoprolol Tartrate (Lopressor) 50 mg ONCE ONCE PO Last administered on 12:03; Start 08/04/16 at 11:30; Stop 08/04/16 at 11:36; Status DC Nitrofurantoin Macrocrystals (Macrobid) 100 mg BIDPC PO Last administered on 09:51; Start 08/05/16 at 09:00; Stop 08/06/16 at 14:11; Status DC Enalapril Maleate (Vasotec) 2.5 mg BID PO Last administered on 08/09/16 09:40; Start 08/05/16 at 12:00 Metoprolol Tartrate (Lopressor Inj) 5 mg ONCE ONCE IV PUSH Last administered on 08/06/16 00:55; Start 08/06/16 at 00:45; Stop 08/06/16 at 00:48; Status DC Metoprolol Tartrate 5 mg 5 mg ONCE ONCE IV PUSH Last administered on 08/06/16 03:24; Start 08/06/16 at 02:00; Stop 08/06/16 at 02:01; Status DC Sodium Chloride 500 ml @ 500 mls/hr BOLUS ONCE IV Last administered on 02:07; Start 08/06/16 at 02:00; Stop 08/06/16 at 02:59; Status DC Sodium Chloride (NS 500 ml Inj) 500 ml @ 500 mls/hr BOLUS ONCE IV Last administered on 08/06/16 07:00; Start 08/06/16 at 07:00; Stop 08/06/16 at 07:59; Status DC Diltiazem HCl 30 mg 30 mg Q8HR PO Last administered on 08/08/16 05:30; Start at 09:15; Stop 08/08/16 at 09:50; Status DC Sodium Chloride (NS 250 ml Inj) 250 ml @ 50 mls/hr ONCE ONCE IV ; Start at 18:15; Stop 08/06/16 at 23:14; Status DC Diltiazem HCl (Cardizem Inj) 10 mg ONCE ONCE IV Last administered on 08/08/16 04:33; Start 08/08/16 at 04:30; Stop 08/08/16 at 04:31; Status DC Diltiazem HCl (Cardizem) 30 mg Q6HR PO Last administered on 08/09/16t 04:41; Start 08/08/16 at 12:00 A/P Assessment and Plan A/P NSTEMI The patient was found to have a troponin that peaked at 16.1. EKG with T-wave inversions in the lateral leads with some ST depression. She denies chest pain or shortness of breath. Chest x-ray with findings of CHF. Cardiology consult appreciated. LDL 47. - Continue cardiac regimen. - Cardiology decided to proceed with non-invasive approach- f/u outpatient. A fib with RVR- HR still elevated- 110-120's. - Increased Lopressor to 50 mg by mouth twice a day. -will increase po cardizem to 60 mg po q6hrs. -will monitor and adjust the regimen as needed. -dc'ed coumadin due to dementia and history of falls. CHF BNP markedly elevated. CXR consistent with CHF. Appears Euvolemic. Echo shows reduced EF and LAD wall motion abnormality. - continue cardiac regimen. - diurese as needed. Supratherapeutic INR The pt is on Coumadin for history of CVA. She lives in an [facility] and has frequent falls. Head CT negative for bleed. - d/c'ed Coumadin. Dementia The pt is on Namenda. She has frequent falls and resides in an [facility]. Per the patient's daughter she is normally independent but when she comes to Hospital she always becomes disoriented. She follows with Dr. Schultz from neurology. Appreciate neurology consult. - PT/OT/ case management consult. - continue Namenda. - neurology consult appreciated- further work-up as outpatient. Anemia fairly stable H/H- f/u as outpatient. UTI Urine culture with no growth. Repeat UA indicative of infection but urine culture also with no growth. - DC'ed nitrofurantoin. HUDSON Creatinine not far from baseline. Stable 2/4. -avoid nephrotoxins. Abdominal pain Noted on examination. The patient is not complaining of abdominal pain otherwise. LFTs, KUB unremarkable. - Continue famotidine. PPx: Lovenox. Discharge Planning still tachycardic- adjusted the cardiac regimen. dc to SNF in am if HR better controlled. Farooq Peraza MD Aug 09, 2016 10:19
[2016-08-09] MEDS: DILTIAZEM HCL 60 MG TAB PO SCH ×3 (11:23→23:52)
[2016-08-09] MEDS: SODIUM CHLORIDE 0.9% FLUSH 5 ML FLUSH FLUSH SCH ×2 (11:23→21:52)
[2016-08-09] MEDS: ENOXAPARIN SODIUM 30 MG/0.3 ML SYRINGE SQ SCH (11:23)
[2016-08-09] MEDS: QUEtiapine FUMARATE 25 MG TAB PO SCH (21:51)
[2016-08-09] MEDS: ATORVASTATIN 20 MG TAB PO SCH (21:51)
[2016-08-09] MEDS: LATANOPROST 0.005% OPHT SOLN 2.5 ML BTL EACH EYE SCH (21:52)
--- NOTE | 2016-08-09 22:16 | EKG ---
Date Performed: 08/08/2016 Time Performed: 20:45:02 PTAGE: 86 years EKG: Sinus rhythm Poor R wave progression - probable normal variant Nonspecific ST and T wave abnormalities Abnormal E CG PREVIOUS TRACING : 08/08/2016 04.12 Compared to the previous tracing, previously atrial fibrill ation, ST elevations inferiorly no longer noted DOCTOR: Paulo Bourgeois Interpretating Date/Time 08/09/2016 22:15:38
[2016-08-10] VITALS (28 sets, daily range): BP systolic 81–128; BP diastolic 36–74; PULSE 42–128; RESP 14–18; TEMP 97.5–98.7; O2SAT 94–100
[2016-08-10] MEDS: DILTIAZEM HCL 60 MG TAB PO SCH (04:59)
[2016-08-10] MEDS: DIGOXIN 0.125 MG TAB PO SCH (08:13)
[2016-08-10] MEDS: METOPROLOL TARTRATE 50 MG TAB PO SCH (08:13)
[2016-08-10] MEDS: SENNOSIDES 8.6 MG TAB PO SCH (08:14)
[2016-08-10] MEDS: POLYETHYLENE GLYCOL 17 GM PKG PO SCH (08:14)
[2016-08-10] MEDS: ENALAPRIL MALEATE 2.5 MG TAB PO SCH ×2 (08:14→20:59)
--- NOTE | 2016-08-10 08:14 | HHI.PR ---
Subjective Remarks d/w the RN; patient had few episodes of pause/ asystole on telemetry. now the patient is resting with no acute distress. HR in 50's at the moment. Objective Vitals Vital Signs Date Time Temp Pulse Resp B/P Pulse Ox O2 Delivery O2 Flow Rate FiO2 08/10/16 06:00 62 08/10/16 05:00 128 08/10/16 04:00 62 08/10/16 04:00 98.3 56 16 123/51 96 08/10/16 03:00 42 08/10/16 02:00 64 08/10/16 01:00 57 08/10/16 00:00 98.0 59 16 103/45 94 08/10/16 00:00 60 08/09/16 23:00 58 08/09/16 22:00 60 08/09/16 21:00 58 08/09/16 20:00 58 08/09/16 20:00 98.1 62 17 131/62 96 08/09/16 19:00 68 08/09/16 18:00 60 08/09/16 17:00 62 08/09/16 16:30 98.2 72 18 101/51 96 08/09/16 15:00 62 08/09/16 13:52 97.8 92 16 121/62 96 08/09/16 11:00 66 08/09/16 09:00 98.1 110 18 115/59 96 I/O 08/09/16 08/09/16 08/09/16 08/10/16 08/10/16 08/10/16 07:00 15:00 23:00 07:00 15:00 23:00 Intake Total 480 ml 480 ml Balance 480 ml 480 ml Intake Oral 480 ml 480 ml IV Total 0 ml # Voids 1 1 1 # Bowel Movements 1 0 Result Diagram: 08/08/16 0440 08/08/16 0440 Imaging Last Impressions Abdomen X-Ray 08/05/16 0000 Signed Impressions: Service Date/Time: Friday, August 05, 2016 08:43 - CONCLUSION: Gaseous distention without obstruction. No acute abnormalities. Iam Moralez MD Head CT 07/31/16 1315 Signed Impressions: Service Date/Time: Sunday, July 31, 2016 14:31 - CONCLUSION: Atrophy with moderate vascular calcifications, negative for acute process. Kamari Peoples MD FACR Chest X-Ray 07/31/16 1315 Signed Impressions: Service Date/Time: Sunday, July 31, 2016 13:26 - CONCLUSION: 1. Cardiomegaly and findings of congestive heart failure. Julio Sims MD Hip and Pelvis X-Ray 07/31/16 0000 Signed Impressions: Service Date/Time: Sunday, July 31, 2016 13:30 - CONCLUSION: Negative for fracture or dislocation. Followup in 7-10 days is suggested if symptoms persist. Kamari Peoples MD FACR Aorta CTA 07/31/16 0000 Signed Impressions: Service Date/Time: Sunday, July 31, 2016 17:05 - CONCLUSION: Extensive atherosclerotic vascular calcifications with no evidence of aneurysm . Degenerative findings of the lower lumbar spine. Moderate size retrocardiac hiatal hernia Andrey Warren MD Objective Remarks GENERAL: This is a well-nourished, well-developed patient, in no apparent distress. CARDIOVASCULAR: Regular rate and regular rhythm without murmurs, gallops, or rubs. RESPIRATORY: Clear to auscultation. Breath sounds equal bilaterally. No wheezes , rales, or rhonchi. GASTROINTESTINAL: Abdomen soft, non-tender, nondistended. Normal, active bowel sounds MUSCULOSKELETAL: Extremities without clubbing, cyanosis, or edema. NEURO: Awake and alert Procedures none Medications and IVs Current Medications IV Flush (NS Flush) 2 ml UNSCH PRN IVF FLUSH AFTER USING IV ACCESS Last administered on 07/31/16 16:05; Start 07/31/16 at 13:15; Stop 07/31/16 at 18:28 ; Status DC Diphenhydramine HCl (Benadryl Inj) 25 mg ONCE ONCE IV PUSH Last administered on 07/31/16 16:05; Start 07/31/16 at 15:30; Stop 07/31/16 at 15:31; Status DC Aspirin (Aspirin Chew) 324 mg ONCE ONCE CHEW Last administered on 07/31/16 15 :50; Start 07/31/16 at 15:45; Stop 07/31/16 at 15:46; Status DC Methylprednisolone Sodium Succinate (SoluMEDROL INJ) 40 mg ONCE ONCE IV PUSH Last administered on 07/31/16 16:05; Start 07/31/16 at 16:00; Stop 07/31/16 at 16:01; Status DC Iohexol (Omnipaque 350 Inj) 100 ml STK-MED ONCE IV Last administered on 17:37; Start 07/31/16 at 17:37; Stop 07/31/16 at 17:38; Status DC IV Flush (NS Flush) 2 ml UNSCH PRN FLUSH FLUSH AFTER USING IV ACCESS Last administered on 08/02/16 04:48; Start 07/31/16 at 18:30 IV Flush (NS Flush) 2 ml BID FLUSH Last administered on 08/09/16 21:52; Start 07/31/16 at 21:00 Ondansetron HCl (Zofran Inj) 4 mg Q6H PRN IVP NAUSEA OR VOMITING; Start at 18:30; Stop 08/02/16 at 13:29; Status DC Naloxone HCl (Narcan Inj) 0.4 mg UNSCH PRN IV SEE LABEL COMMENTS; Start at 18:30 Metoprolol Tartrate (Lopressor) 25 mg Q12HR PO Last administered on 07/31/16 21:42; Start 07/31/16 at 21:00; Stop 08/01/16 at 09:55; Status DC Aspirin (Aspirin) 325 mg DAILY PO ; Start 08/01/16 at 09:00; Stop 08/01/16 at 10 :30; Status DC Nitroglycerin (Nitrostat Sl) 0.4 mg Q5M PRN SL X 3 doses for chest pain; Start 07/31/16 at 18:30 Doxycycline Hyclate (Vibramycin) 100 mg ONCE ONCE PO ; Start 07/31/16 at 19:00 ; Stop 07/31/16 at 19:01; Status Cancel Furosemide (Lasix Inj) 20 mg ONCE ONCE IV PUSH Last administered on 07/31/16 20:11; Start 07/31/16 at 19:15; Stop 07/31/16 at 19:16; Status DC Doxycycline Hyclate (Vibratab) 100 mg ONCE ONCE PO Last administered on 20:11; Start 07/31/16 at 20:00; Stop 07/31/16 at 20:01; Status DC Morphine Sulfate (Morphine Inj) 2 mg Q30M PRN IV PUSH BREAKTHROUGH PAIN; Start 08/01/16 at 10:00; Stop 08/01/16 at 11:23; Status DC Aspirin (Aspirin Chew) 81 mg DAILY PO ; Start 08/02/16 at 09:00; Stop 08/02/16 at 09:00; Status DC Prasugrel (Effient) 60 mg NOW ONCE PO ; Start 08/01/16 at 10:30; Stop 08/01/16 at 11:23; Status DC Prasugrel (Effient) 10 mg DAILY PO ; Start 08/02/16 at 09:00; Stop 08/02/16 at 09: 00; Status DC Bacitracin (Bacitracin Oint Packet) 0.9 gm ONCE ONCE TOP ; Start 08/01/16 at 11 :00; Stop 08/01/16 at 11:23; Status DC Lidocaine HCl (Xylocaine 2% Jelly) 1 applic UNSCH X1 PRN TOP CATHETER INSERTION ; Start 08/01/16 at 10:00; Stop 08/01/16 at 11:23; Status DC IV Flush (NS Flush) 2 ml BID IVF ; Start 08/01/16 at 21:00; Stop 08/01/16 at 21: 00; Status DC Miscellaneous Information 1 1 ONCE ONCE XX ; Start 08/01/16 at 10:00; Stop at 11:23; Status DC Bivalirudin/ Sodium Chloride (Angiomax Inj/NS Inj) 50 ml @ 0 mls/hr Q0M IV ; Start 08/01/16 at 09:49; Stop 08/01/16 at 11:23; Status DC Metoprolol Tartrate (Lopressor) 12.5 mg Q12HR PO Last administered on 08/04/16 10:06; Start 08/01/16 at 21:00; Stop 08/04/16 at 11:30; Status DC Miscellaneous (Pill Splitter) 1 ea UNSCH PRN OTHER SEE LABEL COMMENTS; Start at 10:30 Atorvastatin Calcium (Lipitor) 20 mg HS PO Last administered on 08/09/16 21:51 ; Start 08/01/16 at 21:00 Aspirin (Ecotrin Ec) 81 mg DAILY PO Last administered on 08/09/16 09:40; Start 08/02/16 at 09:00 Phytonadione (Mephyton) 5 mg ONCE ONCE PO Last administered on 08/01/16 12:58 ; Start 08/01/16 at 11:45; Stop 08/01/16 at 11:46; Status DC Multivitamins/ Minerals Therapeutic (Theragran M Tab) 1 tab DAILY PO Last administered on 08/09/16 09:40; Start 08/02/16 at 09:00 Polyethylene Glycol (Miralax) 17 gm DAILY PO Last administered on 08/08/16 08: 16; Start 08/02/16 at 09:00 Famotidine (Pepcid) 10 mg BID PO Last administered on 08/09/16 21:51; Start at 21:00 Patient Own Medication PT OWN MED: COMBI... Q12HR EACH EYE ; Start 08/01/16 at 21:00; Status Hold Patient Own Medication PT OWN MED: NAMENDA... DAILY PO ; Start 08/01/16 at 16:00 ; Status Hold Latanoprost 1 drop 1 drop HS EACH EYE Last administered on 08/09/16 21:52; Start 08/01/16 at 21:00 Sodium Chloride (1/2 NS 1000 ml Inj) 1,000 ml @ 75 mls/hr [id number] IV ; Start at 14:00; Stop 08/01/16 at 14:09; Status DC Sennosides (Senokot) 17.2 mg DAILY PO Last administered on 08/08/16 08:14; Start 08/01/16 at 16:00 Lorazepam (Ativan Inj) 0.5 mg ONCE ONCE IV PUSH Last administered on 08/02/16 04:47; Start 08/02/16 at 04:45; Stop 08/02/16 at 04:46; Status DC Diltiazem HCl 10 mg 10 mg ONCE ONCE IV Last administered on 08/02/16 06:10; Start 08/02/16 at 06:00; Stop 08/02/16 at 06:05; Status DC Diltiazem HCl/ Sodium Chloride (Cardizem Inj/NS Inj) 125 ml @ 0 mls/hr TITRATE IV Last administered on 08/02/16 08:40; Start 08/02/16 at 08:30; Stop 08/03/16 at 10:51; Status DC Digoxin (Lanoxin Inj) 0.25 mg Q6H IVS Last administered on 08/02/16 20:40; Start 08/02/16 at 14:45; Stop 08/02/16 at 20:46; Status DC Digoxin (Lanoxin) 0.125 mg DAILY PO Last administered on 08/09/16 09:40; Start 08/03/16 at 09:00 Potassium Bicarb/ Potassium Chloride (K-Lyte Cl Eff) 25 meq ONCE ONCE PO ; Start 08/02/16 at 09:45; Stop 08/02/16 at 09:45; Status DC Potassium Chloride (KCl) 30 meq ONCE ONCE PO Last administered on 08/02/16 09: 45; Start 08/02/16 at 09:45; Stop 08/02/16 at 09:46; Status DC Quetiapine Fumarate (SEROquel) 25 mg HS PO Last administered on 08/09/16 21:51 ; Start 08/02/16 at 21:00 Enoxaparin Sodium (Lovenox Inj) 30 mg Q24H SQ Last administered on 08/09/16 11: 23; Start 08/03/16 at 11:00 Ferrous Sulfate (Ferrous Sulfate) 325 mg DAILY PO Last administered on 09:40; Start 08/03/16 at 11:00 Diltiazem HCl (Cardizem Inj) 15 mg ONCE ONCE IV Last administered on 08/04/16 03:07; Start 08/04/16 at 03:00; Stop 08/04/16 at 03:01; Status DC Metoprolol Tartrate (Lopressor Inj) 5 mg ONCE ONCE IV PUSH Last administered on 08/04/16 05:54; Start 08/04/16 at 05:45; Stop 08/04/16 at 05:46; Status DC Metoprolol Tartrate (Lopressor) 50 mg Q12HR PO Last administered on 08/09/16 21 :51; Start 08/04/16 at 21:00 Metoprolol Tartrate (Lopressor) 50 mg ONCE ONCE PO Last administered on 12:03; Start 08/04/16 at 11:30; Stop 08/04/16 at 11:36; Status DC Nitrofurantoin Macrocrystals (Macrobid) 100 mg BIDPC PO Last administered on 09:51; Start 08/05/16 at 09:00; Stop 08/06/16 at 14:11; Status DC Enalapril Maleate (Vasotec) 2.5 mg BID PO Last administered on 08/09/16 21:51; Start 08/05/16 at 12:00 Metoprolol Tartrate (Lopressor Inj) 5 mg ONCE ONCE IV PUSH Last administered on 08/06/16 00:55; Start 08/06/16 at 00:45; Stop 08/06/16 at 00:48; Status DC Metoprolol Tartrate 5 mg 5 mg ONCE ONCE IV PUSH Last administered on 08/06/16 03:24; Start 08/06/16 at 02:00; Stop 08/06/16 at 02:01; Status DC Sodium Chloride 500 ml @ 500 mls/hr BOLUS ONCE IV Last administered on 02:07; Start 08/06/16 at 02:00; Stop 08/06/16 at 02:59; Status DC Sodium Chloride (NS 500 ml Inj) 500 ml @ 500 mls/hr BOLUS ONCE IV Last administered on 08/06/16 07:00; Start 08/06/16 at 07:00; Stop 08/06/16 at 07:59; Status DC Diltiazem HCl 30 mg 30 mg Q8HR PO Last administered on 08/08/16 05:30; Start at 09:15; Stop 08/08/16 at 09:50; Status DC Sodium Chloride (NS 250 ml Inj) 250 ml @ 50 mls/hr ONCE ONCE IV ; Start at 18:15; Stop 08/06/16 at 23:14; Status DC Diltiazem HCl (Cardizem Inj) 10 mg ONCE ONCE IV Last administered on 08/08/16 04:33; Start 08/08/16 at 04:30; Stop 08/08/16 at 04:31; Status DC Diltiazem HCl (Cardizem) 30 mg Q6HR PO Last administered on 08/09/16 04:41; Start 08/08/16 at 12:00; Stop 08/09/16 at 10:17; Status DC Diltiazem HCl (Cardizem) 60 mg Q6H PO Last administered on 08/10/16t 04:59; Start 08/09/16 at 11:00 A/P Assessment and Plan A/P NSTEMI The patient was found to have a troponin that peaked at 16.1. EKG with T-wave inversions in the lateral leads with some ST depression. She denies chest pain or shortness of breath. Chest x-ray with findings of CHF. Cardiology consult appreciated. LDL 47. - Continue cardiac regimen. - Cardiology decided to proceed with non-invasive approach- A fib with RVR- ;now with pauses/ asystole on telemetry - hold BB, cardizem and digoxin -will reconsult cardiology -dc'ed coumadin due to dementia and history of falls. CHF BNP markedly elevated. CXR consistent with CHF. Appears Euvolemic. Echo shows reduced EF and LAD wall motion abnormality. - continue cardiac regimen. - diurese as needed. Supratherapeutic INR The pt is on Coumadin for history of CVA. She lives in an [place] and has frequent falls. Head CT negative for bleed. - d/c'ed Coumadin. Dementia The pt is on Namenda. She has frequent falls and resides in an [place]. Per the patient's daughter she is normally independent but when she comes to Hospital she always becomes disoriented. She follows with Dr. Schultz from neurology. Appreciate neurology consult. - PT/OT/ case management consult. - continue Namenda. - neurology consult appreciated- further work-up as outpatient. Anemia fairly stable H/H- f/u as outpatient. UTI Urine culture with no growth. Repeat UA indicative of infection but urine culture also with no growth. - DC'ed nitrofurantoin. HUDSON Creatinine not far from baseline. Stable 2/4. -avoid nephrotoxins. Abdominal pain Noted on examination. The patient is not complaining of abdominal pain otherwise. LFTs, KUB unremarkable. - Continue famotidine. PPx: Lovenox. Discharge Planning not ready for discharge today- cardiology was reconsulted. Farooq Peraza MD Aug 10, 2016 08:14
[2016-08-10] MEDS: SODIUM CHLORIDE 0.9% FLUSH 5 ML FLUSH FLUSH SCH ×2 (08:16→21:00)
[2016-08-10] MEDS: ASPIRIN EC 81 MG TABEC PO SCH (08:16)
[2016-08-10] MEDS: MULTIVITAMINS/MINERALS THERAPEUTIC TAB PO SCH (08:17)
[2016-08-10] MEDS: FAMOTIDINE 20 MG TAB PO SCH ×2 (08:17→20:59)
[2016-08-10] MEDS: FERROUS SULFATE 325 MG (65 MG ELEMENTAL IRON) TAB PO SCH (08:17)
--- NOTE | 2016-08-10 10:24 | PD.CARD.PN ---
Subjective Subjective Remarks asked to see patient due to prolonged pauses on telemetry Objective Medications Active Medications Diltiazem HCl (Cardizem) 60 mg Q6H PO Last administered on 08/10/16t 04:59; Admin Dose 60 MG; Start 08/09/16 at 11:00; Status Hold Vital Signs / I&O Vital Signs Date Time Temp Pulse Resp B/P Pulse Ox O2 Delivery O2 Flow Rate FiO2 08/10/16 08:00 53 08/10/16 08:00 98.7 52 14 101/47 98 08/10/16 06:00 62 08/10/16 05:00 128 08/10/16 04:00 62 08/10/16 04:00 98.3 56 16 123/51 96 08/10/16 03:00 42 08/10/16 02:00 64 08/10/16 01:00 57 08/10/16 00:00 98.0 59 16 103/45 94 08/10/16 00:00 60 08/09/16 23:00 58 08/09/16 22:00 60 08/09/16 21:00 58 08/09/16 20:00 58 08/09/16 20:00 98.1 62 17 131/62 96 08/09/16 19:00 68 08/09/16 18:00 60 08/09/16 17:00 62 08/09/16 16:30 98.2 72 18 101/51 96 08/09/16 15:00 62 08/09/16 13:52 97.8 92 16 121/62 96 08/09/16 11:00 66 I/O 08/09/16 08/09/16 08/09/16 08/10/16 08/10/16 08/10/16 07:00 15:00 23:00 07:00 15:00 23:00 Intake Total 480 ml 480 ml Balance 480 ml 480 ml Intake Oral 480 ml 480 ml IV Total 0 ml # Voids 1 1 1 # Bowel Movements 1 0 Physical Exam NECK: Supple, trachea midline. No JVD or lymphadenopathy. CARDIOVASCULAR: IR IR RESPIRATORY: Breath sounds equal bilaterally. No accessory muscle use. GASTROINTESTINAL: Abdomen soft, non-tender, nondistended. MUSCULOSKELETAL: No cyanosis, or edema. BACK: Nontender without obvious deformity. No CVA tenderness. Imaging Last Impressions Abdomen X-Ray 08/05/16 0000 Signed Impressions: Service Date/Time: Friday, August 05, 2016 08:43 - CONCLUSION: Gaseous distention without obstruction. No acute abnormalities. Iam Moralez MD Head CT 07/31/165 Signed Impressions: Service Date/Time: Sunday, July 31, 2016 14:31 - CONCLUSION: Atrophy with moderate vascular calcifications, negative for acute process. Kamari Peoples MD FACR Chest X-Ray 07/31/16 1315 Signed Impressions: Service Date/Time: Sunday, July 31, 2016 13:26 - CONCLUSION: 1. Cardiomegaly and findings of congestive heart failure. Julio Sims MD Hip and Pelvis X-Ray 07/31/16 0000 Signed Impressions: Service Date/Time: Sunday, July 31, 2016 13:30 - CONCLUSION: Negative for fracture or dislocation. Followup in 7-10 days is suggested if symptoms persist. Kamari Peoples MD FACR Aorta CTA 07/31/16 0000 Signed Impressions: Service Date/Time: Sunday, July 31, 2016 17:05 - CONCLUSION: Extensive atherosclerotic vascular calcifications with no evidence of aneurysm . Degenerative findings of the lower lumbar spine. Moderate size retrocardiac hiatal hernia Andrey Warren MD Assessment and Plan Problem List: (1) NSTEMI (non-ST elevated myocardial infarction) (2) Hypertension (3) Hyperlipidemia (4) Paroxysmal a-fib Assessment and Plan afib - tachycardia-bradycardia syndrome. currently sinus bradycardia. Prolonged sinus pauses/asystole. BB/CCB/Dig dc'd. patient is DNR but discussed situation with power of banking attorney. They may want to consider PPM. will consult EP and they can discuss R/B/A. will sign off call with further questions Tj Delgado MD Aug 10, 2016 10:24
[2016-08-10] MEDS: ENOXAPARIN SODIUM 30 MG/0.3 ML SYRINGE SQ SCH (10:52)
--- NOTE | 2016-08-10 13:31 | MB ---
cc: AMARILIS SARAH M.D. DATE OF CONSULTATION 08/10/2016 REASON FOR CONSULTATION Severe bradycardia, pauses up to 14 seconds. HISTORY Mrs. Edward is an 86-year-old female with a history of CVA, hyperlipidemia, high blood pressure, possible [id number] UT during hospitalization for previous fall. During hospitalization developed an episode of severe bradycardia. Heart rate dropped into the 30s while I am sitting watching the monitor, but previously the patient has 14-second pause. She has multiple other pause also up over five seconds. I was consulted for further evaluation and management. The chart was reviewed. The patient was evaluated. ALLERGIES CODEINE, FLAGYL, IODINE, PENICILLIN, BACTRIM AND CIPRO. SOCIAL HISTORY Negative for smoking and drinking. FAMILY HISTORY Noncontributory to her current medical condition. MEDICATIONS Currently the Mrs. Edward is on: 1. Aspirin 81 mg a day 2. Lipitor 20 mg a day 3. Enalapril 2.5 mg twice a day 4. Lovenox subcu 5. Famotidine 10 mg twice a day 6. Ferrous sulfate 7. Multivitamin REVIEW OF SYSTEMS She refers feeling okay. No chest pain. PHYSICAL EXAM Alert, fully oriented. VITAL SIGNS: Blood pressure is 98/45, pulse 48, respiratory rate 18. LUNGS: Ventilated. CARDIOVASCULAR: S1, S2 regular. ABDOMEN: Soft, no masses. EXTREMITIES: No edema. Electrocardiogram shows sinus rhythm with no acute ST and T-wave changes. LABORATORY DATA Hemoglobin is 10.3, white blood cell 7.4. Potassium is 3.8, creatinine 0.80, INR 1.1. It was 5.2 on hospitalization. 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 At the beginning, she has high heart rate, but currently she has pauses up to 14-second period and severe bradycardia. She is on no negative chronotropic medication. Metoprolol was DC. At this point, I had a long conversation with the power of patent prosecution attorney. Apparently she has also the caregiver. Mrs. Edward is DNR. I am not sure how much they want to do for her. She is alert, apparently oriented in person and space. Apparently she is functional at home. I did explain to the family that if a pacemaker implantation, they should revoke the DNR because if we need to resuscitate the patient during surgery, we need to have a consent from the family. She states she will be back in the hospital. She will remove temporarily the DNR before the procedure. She had lunch already. I will keep her n.p.o. until dinner. If I can do the procedure today, that will be performed. If not, it will be scheduled for tomorrow afternoon. MD ARIEL Son/GUS /12:50 PM /1:22 PM
[2016-08-10] MEDS ORDERED: CHLORHEXIDINE GLUCONATE 2 % 1 PACK (2 CLOTHS) TOP SCH (19:45)
[2016-08-10] MEDS ORDERED: MUPIROCIN 2% OINT 1 APPLIC/GM SYR NASAL SCH (19:45)
[2016-08-10] MEDS ORDERED: POVIDONE IODINE 5% (ANTISEPSIS KIT) 4 APPLICATIONS EACH NARE SCH (19:45)
[2016-08-10] MEDS: QUEtiapine FUMARATE 25 MG TAB PO SCH (20:59)
[2016-08-10] MEDS: ATORVASTATIN 20 MG TAB PO SCH (20:59)
[2016-08-10] MEDS: LATANOPROST 0.005% OPHT SOLN 2.5 ML BTL EACH EYE SCH (21:00)
[2016-08-11] VITALS (18 sets, daily range): BP systolic 105–155; BP diastolic 58–78; PULSE 84–136; RESP 14–18; TEMP 97–98.1; O2SAT 96–98
[2016-08-11] MEDS: MULTIVITAMINS/MINERALS THERAPEUTIC TAB PO SCH (08:28)
[2016-08-11] MEDS: FERROUS SULFATE 325 MG (65 MG ELEMENTAL IRON) TAB PO SCH (08:28)
[2016-08-11] MEDS: ASPIRIN EC 81 MG TABEC PO SCH (08:28)
[2016-08-11] MEDS: ENALAPRIL MALEATE 2.5 MG TAB PO SCH ×2 (08:28→23:28)
[2016-08-11] MEDS: SENNOSIDES 8.6 MG TAB PO SCH (08:28)
[2016-08-11] MEDS: SODIUM CHLORIDE 0.9% FLUSH 5 ML FLUSH FLUSH SCH (08:29)
[2016-08-11] MEDS: POLYETHYLENE GLYCOL 17 GM PKG PO SCH (08:29)
[2016-08-11] MEDS: FAMOTIDINE 20 MG TAB PO SCH ×2 (08:29→23:26)
[2016-08-11] MEDS: ENOXAPARIN SODIUM 30 MG/0.3 ML SYRINGE SQ SCH (11:00)
--- NOTE | 2016-08-11 13:21 | HHI.PR ---
Subjective Remarks The patient was complaining of lower abdominal pain. She said she has been having bowel movements and has been urinating. She says she is aware she needs a pacemaker. She also complained of a headache. Discussed with nursing. Objective Vitals Vital Signs Date Time Temp Pulse Resp B/P Pulse Ox O2 Delivery O2 Flow Rate FiO2 08/11/16 12:30 130 08/11/16 11:49 97.4 136 18 118/78 08/11/16 08:01 98.0 122 18 110/74 98 08/11/16 08:01 122 08/11/16 06:00 128 08/11/16 05:00 124 08/11/16 04:00 96 08/11/16 04:00 98.1 126 18 109/69 98 08/11/16 03:00 120 08/11/16 02:00 126 08/11/16 01:00 116 08/11/16 00:00 97.7 125 16 126/63 96 08/11/16 00:00 115 08/10/16 23:00 124 08/10/16 22:00 118 08/10/16 21:00 114 08/10/16 20:00 97.5 118 18 128/74 98 08/10/16 20:00 65 08/10/16 19:00 64 08/10/16 18:00 104 08/10/16 18:00 64 08/10/16 17:00 60 08/10/16 17:00 92 08/10/16 16:00 98.5 60 16 116/54 100 08/10/16 16:00 60 08/10/16 15:00 60 08/10/16 14:00 54 I/O 08/10/16 08/10/16 08/10/16 08/11/16 08/11/16 08/11/16 07:00 15:00 23:00 07:00 15:00 23:00 Intake Total 480 ml 1740 ml 240 ml Output Total 300 ml Balance 480 ml 1740 ml -60 ml Intake Oral 480 ml 240 ml 240 ml IV Total 0 ml 1500 ml 0 ml Output Urine Total 300 ml # Voids 1 3 # Bowel Movements 0 0 0 Result Diagram: 08/08/16 0440 08/08/16 0440 Imaging Last Impressions Abdomen X-Ray 08/05/16 0000 Signed Impressions: Service Date/Time: Friday, August 05, 2016 08:43 - CONCLUSION: Gaseous distention without obstruction. No acute abnormalities. Iam Moralez MD Head CT 07/31/16 1315 Signed Impressions: Service Date/Time: Sunday, July 31, 2016 14:31 - CONCLUSION: Atrophy with moderate vascular calcifications, negative for acute process. Kamari Peoples MD FACR Chest X-Ray 07/31/16 1315 Signed Impressions: Service Date/Time: Sunday, July 31, 2016 13:26 - CONCLUSION: 1. Cardiomegaly and findings of congestive heart failure. Julio Sims MD Hip and Pelvis X-Ray 07/31/16 0000 Signed Impressions: Service Date/Time: Sunday, July 31, 2016 13:30 - CONCLUSION: Negative for fracture or dislocation. Followup in 7-10 days is suggested if symptoms persist. Kamari Peoples MD FACR Aorta CTA 07/31/16 0000 Signed Impressions: Service Date/Time: Sunday, July 31, 2016 17:05 - CONCLUSION: Extensive atherosclerotic vascular calcifications with no evidence of aneurysm . Degenerative findings of the lower lumbar spine. Moderate size retrocardiac hiatal hernia Andrey Warren MD Objective Remarks GENERAL: Well-developed well-nourished, in no apparent distress. SKIN: Warm and dry. HEAD: Atraumatic. Normocephalic. EYES: Pupils equal and round. No scleral icterus. No injection or drainage. ENT: No nasal bleeding or discharge. Mucous membranes pink and moist. NECK: Trachea midline. No JVD. CARDIOVASCULAR: Tachycardic, irregularly irregular rhythm. RESPIRATORY: No accessory muscle use. Clear to auscultation. Breath sounds equal bilaterally. GASTROINTESTINAL: Abdomen with diffuse tenderness to palpation. Distention noted in the suprapubic area. Positive bowel sounds. MUSCULOSKELETAL: No obvious deformities. No clubbing. No cyanosis. No edema. There is minimal tenderness about the left greater trochanter on the left hip. No bruising no laceration. NEUROLOGICAL: Awake and alert. No cranial nerves II through XII are grossly intact and nonfocal, 5 out of 5 strength in all 4 extremities. PSYCHIATRIC: Mood and affect appropriate. Procedures none Medications and IVs Current Medications Medications (Trade) Dose Ordered Sig/Alfreda Route Start Time Stop Time Status Last Admin (NS Flush) 2 ml UNSCH PRN FLUSH 07/31/16 18:30 08/02/16 04:48 (NS Flush) 2 ml BID FLUSH 07/31/16 21:00 08/11/16 08:29 (Narcan Inj) 0.4 mg UNSCH PRN IV 07/31/16 18:30 (Nitrostat Sl) 0.4 mg Q5M PRN SL 07/31/16 18:30 (Pill Splitter) 1 ea UNSCH PRN OTHER 08/01/16 10:30 (Lipitor) 20 mg HS PO 08/01/16 21:00 08/10/16 20:59 (Ecotrin Ec) 81 mg DAILY PO 08/02/16 09:00 08/11/16 08:28 (Theragran M Tab) 1 tab DAILY PO 08/02/16 09:00 08/11/16 08:28 (Miralax) 17 gm DAILY PO 08/02/16 09:00 08/11/16 08:29 (Pepcid) 10 mg BID PO 08/01/16 21:00 08/11/16 08:29 Patient Own Medication PT OWN MED: COMBI... Q12HR EACH EYE 08/01/16 21:00 Hold Patient Own Medication PT OWN MED: NAMENDA... DAILY PO 08/01/16 16:00 Hold (Xalatan 0.005% Opt Soln) 1 drop HS EACH EYE 08/01/16 21:00 08/10/16 21:00 (Senokot) 17.2 mg DAILY PO 08/01/16 16:00 08/11/16 08:28 (Lanoxin) 0.125 mg DAILY PO 08/03/16 09:00 Hold 08/09/16 09:40 (SEROquel) 25 mg HS PO 08/02/16 21:00 08/10/16 20:59 (Lovenox Inj) 30 mg Q24H SQ 08/03/16 11:00 08/11/16 11:00 (Ferrous Sulfate) 325 mg DAILY PO 08/03/16 11:00 08/11/16 08:28 (Lopressor) 50 mg Q12HR PO 08/04/16 21:00 Hold 08/09/16 21:51 (Vasotec) 2.5 mg BID PO 08/05/16 12:00 08/11/16 08:28 (Cardizem) 60 mg Q6H PO 08/09/16 11:00 Hold 08/10/16 04:59 A/P Assessment and Plan NSTEMI The patient was found to have a troponin that peaked at 16.1. EKG with T-wave inversions in the lateral leads with some ST depression. She denies chest pain or shortness of breath. Chest x-ray with findings of CHF. Cardiology consult appreciated. LDL 47. - Continue cardiac regimen. - Cardiology decided to proceed with non-invasive approach. A fib with RVR Now with pauses/ asystole on telemetry. Cardiology was reconsulted. - hold BB, Cardizem and digoxin. - pacemaker placement planned 08/11. - dc'ed coumadin due to dementia and history of falls. CHF BNP markedly elevated. CXR consistent with CHF. Appears Euvolemic. Echo shows reduced EF and LAD wall motion abnormality. - continue cardiac regimen. - diurese as needed. Supratherapeutic INR The pt is on Coumadin for history of CVA. She lives in an [facility] and has frequent falls. Head CT negative for bleed. - d/c'ed Coumadin. Dementia The pt is on Namenda. She has frequent falls and resides in an [facility]. Per the patient's daughter she is normally independent but when she comes to Hospital she always becomes disoriented. She follows with Dr. Schultz from neurology. Appreciate neurology consult. - PT/OT/ case management consult. - continue Namenda. - neurology consult appreciated- further work-up as outpatient. Anemia Fairly stable H/H. - f/u as outpatient. [place] Creatinine not far from baseline. Improved 08/08. - avoid nephrotoxins. Abdominal pain Noted on examination, now with distention of the lower abdomen. May be s/t bladder distention now that Skinner is out. - Continue famotidine. - replace Skinner. If no improvement would get CT scan of the abdomen to further evaluate. - check LFTs, lipase. PPx: Lovenox. Discharge Planning Awaiting further cardiology evaluation. Tramaine Easley DO Aug 11, 2016 13:20
[2016-08-11 17:29] LABS: ANION GAP 13 MEQ/L (5-15); AST (GOT) 21 U/L (15-37); BLOOD UREA NITROGEN 16 MG/DL (7-18); CHLORIDE 110 MEQ/L (98-107); GLOMERULAR FILTRATION RATE 74 ML/MIN (>89); MAGNESIUM 2.2 MG/DL (1.5-2.5); SODIUM (NA) 141 MEQ/L (136-145)
[2016-08-11 17:32] LABS: ALKALINE PHOSPHATASE 82 U/L (45-117); ALT (GPT) 20 U/L (10-53); TOTAL BILIRUBIN ADULT 0.7 MG/DL (0.2-1.0)
[2016-08-11] MEDS ORDERED: diphenhydrAMINE HCL 50 MG/ML VIAL ONE (20:08)
[2016-08-11] MEDS ORDERED: LIDOCAINE HCL 2% 50 ML VIAL ONE (20:26)
[2016-08-11] MEDS ORDERED: VANCOMYCIN HCL 1000 MG VIAL ONE (20:26)
[2016-08-11] MEDS ORDERED: VANCOMYCIN 500 MG VIAL ONE (20:26)
[2016-08-11] MEDS ORDERED: PROPOFOL 200 MG/20 ML AMP IV ONE (21:00)
[2016-08-11] MEDS ORDERED: traMADol HCL 50 MG TAB PO PRN ×2 (21:15)
[2016-08-11] MEDS ORDERED: ONDANSETRON HCL 4 MG/2 ML VIAL IV PRN (21:15)
[2016-08-11] MEDS ORDERED: SODIUM CHLORIDE 0.9% FLUSH 5 ML FLUSH IVF PRN (21:15)
[2016-08-11] MEDS ORDERED: DO NOT ADM ANY ANTICOAGULANT DRUGS XX PRN (21:24)
[2016-08-11] MEDS ORDERED: VANCOMYCIN INJ 1,000 MG in SODIUM CHLOR 0.9% 250 ML INJ 250 ML IV ONE (21:30)
--- NOTE | 2016-08-11 22:35 | RADRPT ---
EXAM DATE/TIME: 08/11/2016 21:18 [facility] COMPARISON: CHEST SINGLE AP, July 31, 2016, 13:26. INDICATIONS : Evaluate for pneumothorax. MEDICAL HISTORY : Congestive heart failure. SURGICAL HISTORY : Post pacemaker surgery. ENCOUNTER: Initial ACUITY: 1 day PAIN SCORE: Non-responsive. LOCATION: Bilateral chest FINDINGS: Pacer lead overlies right ventricle. Cardiomegaly. Bilateral mostly basilar airspace disease and smal l effusions. No pneumothorax. CONCLUSION: 1. Pacer lead overlies right ventricle. Mild congestive heart failure. No pneumothorax. Zion Bermeo MD on August 11, 2016 at 22:33 Board Certified Radiologist. This report was verified electronically.
[2016-08-11] MEDS: LATANOPROST 0.005% OPHT SOLN 2.5 ML BTL EACH EYE SCH (23:25)
[2016-08-11] MEDS: ATORVASTATIN 20 MG TAB PO SCH (23:28)
[2016-08-11] MEDS: QUEtiapine FUMARATE 25 MG TAB PO SCH (23:28)
[2016-08-12] VITALS (22 sets, daily range): BP systolic 102–153; BP diastolic 53–85; PULSE 62–130; RESP 16–18; TEMP 97–98.2; O2SAT 95–98
[2016-08-12] MEDS: FAMOTIDINE 20 MG TAB PO SCH ×2 (08:27→20:44)
[2016-08-12] MEDS: SENNOSIDES 8.6 MG TAB PO SCH (08:27)
[2016-08-12] MEDS: SODIUM CHLORIDE 0.9% FLUSH 5 ML FLUSH IVF SCH ×2 (08:27→20:45)
[2016-08-12] MEDS: FERROUS SULFATE 325 MG (65 MG ELEMENTAL IRON) TAB PO SCH (08:27)
[2016-08-12] MEDS: MULTIVITAMINS/MINERALS THERAPEUTIC TAB PO SCH (08:28)
[2016-08-12] MEDS: POLYETHYLENE GLYCOL 17 GM PKG PO SCH (08:28)
[2016-08-12] MEDS: ENALAPRIL MALEATE 2.5 MG TAB PO SCH ×2 (08:28→20:44)
[2016-08-12] MEDS: ASPIRIN EC 81 MG TABEC PO SCH (08:28)
--- NOTE | 2016-08-12 08:53 | PD.CARD.PN ---
Subjective Subjective Remarks no complaints s/ PPM Objective Medications Current Medications Medications (Trade) Dose Ordered Sig/Alfreda Route Start Time Stop Time Status Last Admin (Narcan Inj) 0.4 mg UNSCH PRN IV 07/31/16 18:30 (Nitrostat Sl) 0.4 mg Q5M PRN SL 07/31/16 18:30 (Pill Splitter) 1 ea UNSCH PRN OTHER 08/01/16 10:30 (Lipitor) 20 mg HS PO 08/01/16 21:00 08/11/16 23:28 (Ecotrin Ec) 81 mg DAILY PO 08/02/16 09:00 08/12/16 08:28 (Theragran M Tab) 1 tab DAILY PO 08/02/16 09:00 08/12/16 08:28 (Miralax) 17 gm DAILY PO 08/02/16 09:00 08/12/16 08:28 (Pepcid) 10 mg BID PO 08/01/16 21:00 08/12/16 08:27 Patient Own Medication PT OWN MED: COMBI... Q12HR EACH EYE 08/01/16 21:00 Hold Patient Own Medication PT OWN MED: NAMENDA... DAILY PO 08/01/16 16:00 Hold (Xalatan 0.005% Opth Soln) 1 drop HS EACH EYE 08/01/16 21:00 08/11/16 23:25 (Senokot) 17.2 mg DAILY PO 08/01/16 16:00 08/12/16 08:27 (Lanoxin) 0.125 mg DAILY PO 08/03/16 09:00 Hold 08/09/16 09:40 (SEROquel) 25 mg HS PO 08/02/16 21:00 08/11/16 23:28 (Lovenox Inj) 30 mg Q24H SQ 08/03/16 11:00 08/11/16 11:00 (Ferrous Sulfate) 325 mg DAILY PO 08/03/16 11:00 08/12/16 08:27 (Lopressor) 50 mg Q12HR PO 08/04/16 21:00 Hold 08/09/16 21:51 (Vasotec) 2.5 mg BID PO 08/05/16 12:00 08/12/16 08:28 (Cardizem) 60 mg Q6H PO 08/09/16 11:00 Hold 08/10/16 04:59 (Zofran Inj) 4 mg Q4H PRN IV 08/11/16 21:15 (Ultram) 25 mg Q4H PRN PO 08/11/16 21:15 (Ultram) 50 mg Q4H PRN PO 08/11/16 21:15 (NS Flush) 2 ml BID IVF 08/12/16 09:00 08/12/16 08:27 (NS Flush) 2 ml UNSCH PRN IVF 08/11/16 21:15 Miscellaneous Information ALL NURSING DEPARTME... UNSCH PRN XX 08/11/16 21:24 08/12/16 21:23 Vital Signs / I&O Vital Signs Date Time Temp Pulse Resp B/P Pulse Ox O2 Delivery O2 Flow Rate FiO2 08/12/16 08:05 98.0 78 18 120/68 96 08/12/16 08:02 78 08/12/16 06:00 80 08/12/16 05:00 78 08/12/16 04:35 97.9 08/12/16 04:11 83 16 122/67 95 08/12/16 04:00 82 08/12/16 03:00 118/58 08/12/16 03:00 82 08/12/16 02:00 84 08/12/16 01:30 113/56 08/12/16 01:00 86 08/12/16 00:00 86 16 153/85 96 08/12/16 00:00 86 08/11/16 23:00 151/77 08/11/16 23:00 84 08/11/16 22:50 138/77 08/11/16 22:45 97.9 85 14 155/77 97 08/11/16 22:02 97.6 84 14 162/87 97 Nasal Cannula 2 08/11/16 21:45 81 16 143/79 100 Nasal Cannula 2 08/11/16 21:30 83 16 133/75 100 Nasal Cannula 2 08/11/16 21:28 97.8 85 16 153/80 100 Nasal Cannula 2 08/11/16 20:00 88 08/11/16 19:59 98.0 93 18 105/58 96 08/11/16 19:00 99 08/11/16 16:09 128 08/11/16 15:24 97.0 132 18 120/70 98 08/11/16 12:30 130 08/11/16 11:49 97.4 136 18 118/78 I/O 08/11/16 08/11/16 08/11/16 08/12/16 08/12/16 08/12/16 07:00 15:00 23:00 07:00 15:00 23:00 Intake Total 240 ml 300 ml 730 ml Output Total 300 ml 1800 ml 175 ml Balance -60 ml -1500 ml 555 ml Intake Oral 240 ml 0 ml 480 ml IV Total 0 ml 0 ml 250 ml Other 300 ml Output Urine Total 300 ml 1800 ml 175 ml Bladder Scan Volume Amount 980 ml 980 ml # Bowel Movements 0 0 Physical Exam GENERAL: Well-nourished, well-developed patient. SKIN: Warm and dry. HEAD: Normocephalic. EYES: No scleral icterus. No injection or drainage. NECK: Supple, trachea midline. No JVD or lymphadenopathy. CARDIOVASCULAR: Regular rate and rhythm without murmurs, gallops, or rubs. RESPIRATORY: Breath sounds equal bilaterally. No accessory muscle use. GASTROINTESTINAL: Abdomen soft, non-tender, nondistended. EXTREMITIES: No cyanosis, or edema. NEUROLOGICAL: Awake, alert, and oriented x 3. Non-focal. Laboratory Laboratory Tests Test 08/11/16 17:04 Sodium Level 141 MEQ/L Potassium Level 4.0 MEQ/L Chloride Level 110 MEQ/L Carbon Dioxide Level 18.0 MEQ/L Anion Gap 13 MEQ/L Blood Urea Nitrogen 16 MG/DL Creatinine 0.74 MG/DL Estimat Glomerular Filtration 74 ML/MIN Rate Random Glucose 92 MG/DL Calcium Level 8.2 MG/DL Phosphorus Level 3.0 MG/DL Magnesium Level 2.2 MG/DL Total Bilirubin 0.7 MG/DL Aspartate Amino Transf 21 U/L (AST/SGOT) Alanine Aminotransferase 20 U/L (ALT/SGPT) Alkaline Phosphatase 82 U/L Total Protein 5.1 GM/DL Albumin 2.5 GM/DL Lipase 136 U/L Imaging Last Impressions Chest X-Ray 08/11/16 0000 Signed Impressions: Service Date/Time: Thursday, August 11, 2016 21:18 - CONCLUSION: 1. Pacer lead overlies right ventricle. Mild congestive heart failure. No pneumothorax. Zion Bermeo MD Abdomen X-Ray 08/05/16 0000 Signed Impressions: Service Date/Time: Friday, August 05, 2016 08:43 - CONCLUSION: Gaseous distention without obstruction. No acute abnormalities. Iam Moralez MD Head CT 07/31/16 1315 Signed Impressions: Service Date/Time: Sunday, July 31, 2016 14:31 - CONCLUSION: Atrophy with moderate vascular calcifications, negative for acute process. Kamari Peoples MD FACR Hip and Pelvis X-Ray 07/31/16 0000 Signed Impressions: Service Date/Time: Sunday, July 31, 2016 13:30 - CONCLUSION: Negative for fracture or dislocation. Followup in 7-10 days is suggested if symptoms persist. Kamari Peoples MD FACR Aorta CTA 07/31/16 0000 Signed Impressions: Service Date/Time: Sunday, July 31, 2016 17:05 - CONCLUSION: Extensive atherosclerotic vascular calcifications with no evidence of aneurysm . Degenerative findings of the lower lumbar spine. Moderate size retrocardiac hiatal hernia Andrey Warren MD Assessment and Plan Problem List: (1) Paroxysmal a-fib Assessment and Plan: s/p PPM Stable Cont medical therapy (2) NSTEMI (non-ST elevated myocardial infarction) (3) Hypertension (4) Hyperlipidemia Ramos Means MD Aug 12, 2016 08:53
[2016-08-12] MEDS: ENOXAPARIN SODIUM 30 MG/0.3 ML SYRINGE SQ SCH (11:19)
[2016-08-12] MEDS ORDERED: DILTIAZEM HCL 25 MG/5 ML VIAL IV ONE ×2 (14:30→18:15)
[2016-08-12] MEDS: DIGOXIN 0.125 MG TAB PO SCH ×2 (15:16→16:00)
[2016-08-12] MEDS: DILTIAZEM HCL 60 MG TAB PO SCH ×2 (15:16→17:33)
--- NOTE | 2016-08-12 18:30 | HHI.PR ---
Subjective Remarks The pt had no acute complaints. Nurse at bedside, stating pt has been having elevated heart rates requiring Cardizem boluses. The pt was comfortable. Objective Vitals Vital Signs Date Time Temp Pulse Resp B/P Pulse Ox O2 Delivery O2 Flow Rate FiO2 08/12/16 17:12 118 08/12/16 15:19 97.0 88 18 122/78 96 08/12/16 12:33 79 08/12/16 11:10 97.0 85 18 124/80 96 08/12/16 08:05 98.0 78 18 120/68 96 08/12/16 08:02 78 08/12/16 06:00 80 08/12/16 05:00 78 08/12/16 04:35 97.9 08/12/16 04:11 83 16 122/67 95 08/12/16 04:00 82 08/12/16 03:00 118/58 08/12/16 03:00 82 08/12/16 02:00 84 08/12/16 01:30 113/56 08/12/16 01:00 86 08/12/16 00:00 86 16 153/85 96 08/12/16 00:00 86 08/11/16 23:00 151/77 08/11/16 23:00 84 08/11/16 22:50 138/77 08/11/16 22:45 97.9 85 14 155/77 97 08/11/16 22:02 97.6 84 14 162/87 97 Nasal Cannula 2 08/11/16 21:45 81 16 143/79 100 Nasal Cannula 2 08/11/16 21:30 83 16 133/75 100 Nasal Cannula 2 08/11/16 21:28 97.8 85 16 153/80 100 Nasal Cannula 2 08/11/16 20:00 88 08/11/16 19:59 98.0 93 18 105/58 96 08/11/16 19:00 99 I/O 08/11/16 08/11/16 08/11/16 08/12/16 08/12/16 08/12/16 07:00 15:00 23:00 07:00 15:00 23:00 Intake Total 240 ml 300 ml 730 ml 640 ml Output Total 300 ml 1800 ml 175 ml 800 ml Balance -60 ml -1500 ml 555 ml -160 ml Intake Oral 240 ml 0 ml 480 ml 640 ml IV Total 0 ml 0 ml 250 ml 0 ml Other 300 ml Output Urine Total 300 ml 1800 ml 175 ml 800 ml Bladder Scan Volume Amount 980 ml 980 ml 980 ml # Bowel Movements 0 0 Result Diagram: 08/08/16 0440 08/11/16 1704 Imaging Last Impressions Chest X-Ray 08/11/16 0000 Signed Impressions: Service Date/Time: Thursday, August 11, 2016 21:18 - CONCLUSION: 1. Pacer lead overlies right ventricle. Mild congestive heart failure. No pneumothorax. Zion Bermeo MD Abdomen X-Ray 08/05/16 0000 Signed Impressions: Service Date/Time: Friday, August 05, 2016 08:43 - CONCLUSION: Gaseous distention without obstruction. No acute abnormalities. Iam Moralez MD Head CT 07/31/16 1315 Signed Impressions: Service Date/Time: Sunday, July 31, 2016 14:31 - CONCLUSION: Atrophy with moderate vascular calcifications, negative for acute process. Kamari Peoples MD FACR Hip and Pelvis X-Ray 07/31/16 0000 Signed Impressions: Service Date/Time: Sunday, July 31, 2016 13:30 - CONCLUSION: Negative for fracture or dislocation. Followup in 7-10 days is suggested if symptoms persist. Kamari Peoples MD FACR Aorta CTA 07/31/16 0000 Signed Impressions: Service Date/Time: Sunday, July 31, 2016 17:05 - CONCLUSION: Extensive atherosclerotic vascular calcifications with no evidence of aneurysm . Degenerative findings of the lower lumbar spine. Moderate size retrocardiac hiatal hernia Andrey Warren MD Objective Remarks GENERAL: Well-developed well-nourished, in no apparent distress. SKIN: Warm and dry. HEAD: Atraumatic. Normocephalic. EYES: Pupils equal and round. No scleral icterus. No injection or drainage. ENT: No nasal bleeding or discharge. Mucous membranes pink and moist. NECK: Trachea midline. No JVD. CARDIOVASCULAR: Tachycardic, irregularly irregular rhythm. RESPIRATORY: No accessory muscle use. Clear to auscultation. Breath sounds equal bilaterally. GASTROINTESTINAL: Abdomen with diffuse tenderness to palpation. Distention noted in the suprapubic area. Positive bowel sounds. MUSCULOSKELETAL: No obvious deformities. No clubbing. No cyanosis. No edema. There is minimal tenderness about the left greater trochanter on the left hip. No bruising no laceration. NEUROLOGICAL: Awake and alert. No cranial nerves II through XII are grossly intact and nonfocal, 5 out of 5 strength in all 4 extremities. PSYCHIATRIC: Mood and affect appropriate. Procedures none Medications and IVs Current Medications Medications (Trade) Dose Ordered Sig/Alfreda Route Start Time Stop Time Status Last Admin (Narcan Inj) 0.4 mg UNSCH PRN IV 07/31/16 18:30 (Nitrostat Sl) 0.4 mg Q5M PRN SL 07/31/16 18:30 (Pill Splitter) 1 ea UNSCH PRN OTHER 08/01/16 10:30 (Lipitor) 20 mg HS PO 08/01/16 21:00 08/11/16 23:28 (Ecotrin Ec) 81 mg DAILY PO 08/02/16 09:00 08/12/16 08:28 (Theragran M Tab) 1 tab DAILY PO 08/02/16 09:00 08/12/16 08:28 (Miralax) 17 gm DAILY PO 08/02/16 09:00 08/12/16 08:28 (Pepcid) 10 mg BID PO 08/01/16 21:00 08/12/16 08:27 Patient Own Medication PT OWN MED: COMBI... Q12HR EACH EYE 08/01/16 21:00 Hold Patient Own Medication PT OWN MED: NAMENDA... DAILY PO 08/01/16 16:00 Hold (Xalatan 0.005% Opt Soln) 1 drop HS EACH EYE 08/01/16 21:00 08/11/16 23:25 (Senokot) 17.2 mg DAILY PO 08/01/16 16:00 08/12/16 08:27 (SEROquel) 25 mg HS PO 08/02/16 21:00 08/11/16 23:28 (Lovenox Inj) 30 mg Q24H SQ 08/03/16 11:00 08/12/16 11:19 (Ferrous Sulfate) 325 mg DAILY PO 08/03/16 11:00 08/12/16 08:27 (Vasotec) 2.5 mg BID PO 08/05/16 12:00 08/12/16 08:28 (Zofran Inj) 4 mg Q4H PRN IV 08/11/16 21:15 (Ultram) 25 mg Q4H PRN PO 08/11/16 21:15 (Ultram) 50 mg Q4H PRN PO 08/11/16 21:15 (NS Flush) 2 ml BID IVF 08/12/16 09:00 08/12/16 08:27 (NS Flush) 2 ml UNSCH PRN IVF 08/11/16 21:15 Miscellaneous Information ALL NURSING DEPARTME... UNSCH PRN XX 08/11/16 21:24 08/12/16 21:23 (Cardizem) 60 mg Q6HR PO 08/12/16 18:00 08/12/16 17:33 (Lanoxin) 0.125 mg DAILY PO 08/12/16 16:00 08/12/16 16:00 (Lopressor) 50 mg Q12HR PO 08/12/16 21:00 A/P Assessment and Plan NSTEMI The patient was found to have a troponin that peaked at 16.1. EKG with T-wave inversions in the lateral leads with some ST depression. She denies chest pain or shortness of breath. Chest x-ray with findings of CHF. Cardiology consult appreciated. LDL 47. - Continue cardiac regimen. - Cardiology decided to proceed with non-invasive approach. A fib with RVR Now with pauses/ asystole on telemetry. Cardiology was reconsulted. S/p PPM . Now in A fib with RVR again. - resume BB, Cardizem and digoxin. - dc'ed coumadin due to dementia and history of falls. - IV diltiazem bolus. Gtt if needed. CHF BNP markedly elevated. CXR consistent with CHF. Appears Euvolemic. Echo shows reduced EF and LAD wall motion abnormality. - continue cardiac regimen. - diurese as needed. Supratherapeutic INR The pt is on Coumadin for history of CVA. She lives in an [facility] and has frequent falls. Head CT negative for bleed. - d/c'ed Coumadin. Dementia The pt is on Namenda. She has frequent falls and resides in an [facility]. Per the patient's daughter she is normally independent but when she comes to Hospital she always becomes disoriented. She follows with Dr. Schultz from neurology. Appreciate neurology consult. - PT/OT/ case management consult. - continue Namenda. - neurology consult appreciated- further work-up as outpatient. Anemia Fairly stable H/H. - f/u as outpatient. [place] Creatinine not far from baseline. Improved 08/08. - avoid nephrotoxins. Urinary retention Resolved with Skinner. - Continue Skinner. PPx: Lovenox. Discharge Planning Awaiting further cardiology evaluation. Tramaine Easley DO Aug 12, 2016 18:30
[2016-08-12] MEDS: QUEtiapine FUMARATE 25 MG TAB PO SCH (20:44)
[2016-08-12] MEDS: METOPROLOL TARTRATE 50 MG TAB PO SCH (20:44)
[2016-08-12] MEDS: ATORVASTATIN 20 MG TAB PO SCH (20:45)
[2016-08-12] MEDS: LATANOPROST 0.005% OPHT SOLN 2.5 ML BTL EACH EYE SCH (20:45)
[2016-08-13] VITALS (36 sets, daily range): BP systolic 70–143; BP diastolic 30–78; PULSE 59–118; RESP 18–20; TEMP 97.5–98.8; O2SAT 96–100
[2016-08-13] MEDS: DILTIAZEM HCL 60 MG TAB PO SCH ×5 (05:36→22:44)
[2016-08-13 07:28] LABS: BICARBONATE 21.1 MEQ/L (21.0-32.0); MAGNESIUM 2.3 MG/DL (1.5-2.5); POTASSIUM 3.9 MEQ/L (3.5-5.1)
[2016-08-13 07:30] LABS: HEMATOCRIT 28.8 % (35.0-46.0); MEAN CELL VOLUME 87.3 FL (80.0-100.0); MEAN CORPUSCULAR HEMOGLOBIN 29.6 PG (27.0-34.0); MEAN CORPUSCULAR HGB CONC 33.9 % (32.0-36.0); PLATELET COUNT 359 TH/MM3 (150-450); RED CELL DISTRIBUTION WIDTH 15.1 % (11.6-17.2); REVIEW FLAG FINAL; WHITE BLOOD COUNT 8.2 TH/MM3 (4.0-11.0)
[2016-08-13] MEDS: MULTIVITAMINS/MINERALS THERAPEUTIC TAB PO SCH (07:51)
[2016-08-13] MEDS: ASPIRIN EC 81 MG TABEC PO SCH (07:51)
[2016-08-13] MEDS: POLYETHYLENE GLYCOL 17 GM PKG PO SCH (07:51)
[2016-08-13] MEDS: DIGOXIN 0.125 MG TAB PO SCH (07:51)
[2016-08-13] MEDS: FAMOTIDINE 20 MG TAB PO SCH ×2 (07:52→20:53)
[2016-08-13] MEDS: SODIUM CHLORIDE 0.9% FLUSH 5 ML FLUSH IVF SCH ×2 (07:53→20:54)
[2016-08-13] MEDS: METOPROLOL TARTRATE 50 MG TAB PO SCH (07:53)
[2016-08-13] MEDS: SENNOSIDES 8.6 MG TAB PO SCH (07:53)
[2016-08-13] MEDS: FERROUS SULFATE 325 MG (65 MG ELEMENTAL IRON) TAB PO SCH (07:53)
[2016-08-13] MEDS: ENALAPRIL MALEATE 2.5 MG TAB PO SCH (07:53)
--- NOTE | 2016-08-13 09:06 | PD.CARD.PN ---
Subjective Subjective Remarks Overnight episodes of Afib with RVR in the setting of holding PO BB and digoxin responded to IV cardizem No complaints Objective Medications Current Medications Medications (Trade) Dose Ordered Sig/Alfreda Route Start Time Stop Time Status Last Admin (Narcan Inj) 0.4 mg UNSCH PRN IV 07/31/16 18:30 (Nitrostat Sl) 0.4 mg Q5M PRN SL 07/31/16 18:30 (Pill Splitter) 1 ea UNSCH PRN OTHER 08/01/16 10:30 (Lipitor) 20 mg HS PO 08/01/16 21:00 08/12/16 20:45 (Ecotrin Ec) 81 mg DAILY PO 08/02/16 09:00 08/13/16 07:51 (Theragran M Tab) 1 tab DAILY PO 08/02/16 09:00 08/13/16 07:51 (Miralax) 17 gm DAILY PO 08/02/16 09:00 08/13/16 07:51 (Pepcid) 10 mg BID PO 08/01/16 21:00 08/13/16 07:52 Patient Own Medication PT OWN MED: COMBI... Q12HR EACH EYE 08/01/16 21:00 Hold Patient Own Medication PT OWN MED: NAMENDA... DAILY PO 08/01/16 16:00 Hold (Xalatan 0.005% Opt Soln) 1 drop HS EACH EYE 08/01/16 21:00 08/12/16 20:45 (Senokot) 17.2 mg DAILY PO 08/01/16 16:00 08/13/16 07:53 (SEROquel) 25 mg HS PO 08/02/16 21:00 08/12/16 20:44 (Lovenox Inj) 30 mg Q24H SQ 08/03/16 11:00 08/12/16 11:19 (Ferrous Sulfate) 325 mg DAILY PO 08/03/16 11:00 08/13/16 07:53 (Vasotec) 2.5 mg BID PO 08/05/16 12:00 08/13/16 07:53 (Zofran Inj) 4 mg Q4H PRN IV 08/11/16 21:15 (Ultram) 25 mg Q4H PRN PO 08/11/16 21:15 (Ultram) 50 mg Q4H PRN PO 08/11/16 21:15 (NS Flush) 2 ml BID IVF 08/12/16 09:00 08/13/16 07:53 (NS Flush) 2 ml UNSCH PRN IVF 08/11/16 21:15 (Cardizem) 60 mg Q6HR PO 08/12/16 18:00 08/13/16 05:36 (Lanoxin) 0.125 mg DAILY PO 08/12/16 16:00 08/13/16 07:51 (Lopressor) 50 mg Q12HR PO 08/12/16 21:00 08/13/16 07:53 Vital Signs / I&O Vital Signs Date Time Temp Pulse Resp B/P Pulse Ox O2 Delivery O2 Flow Rate FiO2 08/13/16 07:30 98.2 105 18 100/57 96 08/13/16 06:00 118 08/13/16 05:27 112 20 97/53 99 08/13/16 05:00 70 08/13/16 04:00 97.5 114 18 102/59 100 08/13/16 04:00 114 08/13/16 03:30 90/63 08/13/16 03:00 103/58 08/13/16 03:00 108 08/13/16 02:37 111 08/13/16 02:30 89/51 08/13/16 02:00 108 08/13/16 02:00 90/52 08/13/16 01:30 109/62 08/13/16 01:00 90/47 08/13/16 01:00 66 08/13/16 00:31 86/45 08/13/16 00:30 88/30 08/13/16 00:12 67 92/47 99 08/13/16 00:00 66 08/13/16 00:00 97.6 67 18 86/43 99 08/12/16 23:00 70 08/12/16 22:00 62 08/12/16 21:00 114 08/12/16 20:00 97.6 104 18 102/53 98 08/12/16 20:00 130 08/12/16 19:54 104 08/12/16 19:00 114 08/12/16 17:12 118 08/12/16 15:19 97.0 88 18 122/78 96 08/12/16 12:33 79 08/12/16 11:10 97.0 85 18 124/80 96 I/O 08/12/16 08/12/16 08/12/16 08/13/16 08/13/16 08/13/16 07:00 15:00 23:00 07:00 15:00 23:00 Intake Total 730 ml 640 ml 120 ml Output Total 175 ml 800 ml 350 ml Balance 555 ml -160 ml -230 ml Intake Oral 480 ml 640 ml 120 ml IV Total 250 ml 0 ml 0 ml Output Urine Total 175 ml 800 ml 350 ml Bladder Scan Volume Amount 980 ml 980 ml # Bowel Movements 0 0 Physical Exam GENERAL: Well-nourished, well-developed patient. SKIN: Warm and dry. HEAD: Normocephalic. EYES: No scleral icterus. No injection or drainage. NECK: Supple, trachea midline. No JVD or lymphadenopathy. CARDIOVASCULAR: Regular rate and rhythm without murmurs, gallops, or rubs. RESPIRATORY: Breath sounds equal bilaterally. No accessory muscle use. GASTROINTESTINAL: Abdomen soft, non-tender, nondistended. EXTREMITIES: No cyanosis, or edema. NEUROLOGICAL: Awake, alert, and oriented x 3. Non-focal. Laboratory Laboratory Tests Test 08/13/16 05:35 White Blood Count 8.2 TH/MM3 Red Blood Count 3.30 MIL/MM3 Hemoglobin 9.8 GM/DL Hematocrit 28.8 % Mean Corpuscular Volume 87.3 FL Mean Corpuscular Hemoglobin 29.6 PG Mean Corpuscular Hemoglobin 33.9 % Concent Red Cell Distribution Width 15.1 % Platelet Count 359 TH/MM3 Mean Platelet Volume 8.1 FL Hematology Comments Sodium Level 143 MEQ/L Potassium Level 3.9 MEQ/L Chloride Level 113 MEQ/L Carbon Dioxide Level 21.1 MEQ/L Anion Gap 9 MEQ/L Blood Urea Nitrogen 27 MG/DL Creatinine 0.92 MG/DL Estimat Glomerular Filtration 58 ML/MIN Rate Random Glucose 105 MG/DL Calcium Level 7.7 MG/DL Magnesium Level 2.3 MG/DL Assessment and Plan Problem List: (1) Paroxysmal a-fib Assessment and Plan: Cont rate control Off Coumadin because of hx of falls Sign off (2) NSTEMI (non-ST elevated myocardial infarction) (3) Hypertension (4) Hyperlipidemia Ramos Means MD Aug 13, 2016 09:06
[2016-08-13] MEDS ORDERED: SODIUM CHLOR 0.45% 500 ML INJ 500 ML IV ONE (09:30)
[2016-08-13] MEDS: ENOXAPARIN SODIUM 30 MG/0.3 ML SYRINGE SQ SCH (11:00)
--- NOTE | 2016-08-13 14:16 | EKG ---
Date Performed: 08/11/2016 Time Performed: 21:49:20 PTAGE: 86 years EKG: Sinus rhythm LOW QRS VOLTAGE IN EXTREMITY LEADS POSSIBLE INFERIOR MYOCARDIAL INFARCTION , OF INDETERMINATE AGE No nspecific ST changes Compared to prior tracing no significant change ABNORMAL ECG PREVIOUS TRACING : 08/08/2016 20.45 DOCTOR: Kvng Christie Interpretating Date/Time 08/13/2016 14:15:36
--- NOTE | 2016-08-13 14:16 | EKG ---
Date Performed: 08/12/2016 Time Performed: 16:21:02 PTAGE: 86 years EKG: Sinus rhythm Possible anterior infarct - age undetermined Lateral ST-T changes may be due to myocardial ischemia Compared to prior tracing no significant change Abnormal ECG PREVIOUS TRACING : 08/11/2016 21.49 DOCTOR: Kvng Christie Interpretating Date/Time 08/13/2016 14:15:58
--- NOTE | 2016-08-13 16:07 | HHI.PR ---
Subjective Remarks The patient had a friend at the bedside. Nursing reported that earlier this morning the patient's blood pressure was low. The patient did not seem to have any symptoms. She says she was feeling well. She has been at [facility] and would not mind going back there upon discharge. Discussed with nursing. Objective Vitals Vital Signs Date Time Temp Pulse Resp B/P Pulse Ox O2 Delivery O2 Flow Rate FiO2 08/13/16 15:15 98.4 65 20 109/56 99 08/13/16 15:00 64 08/13/16 14:00 66 08/13/16 13:00 78 08/13/16 12:00 60 08/13/16 11:30 98.4 59 20 93/52 100 08/13/16 11:00 60 08/13/16 10:29 60 91/46 08/13/16 10:00 92 08/13/16 09:35 62 83/43 08/13/16 09:15 70/40 08/13/16 09:00 72 08/13/16 09:00 72/47 08/13/16 08:00 70 08/13/16 07:30 98.2 105 18 100/57 96 08/13/16 07:00 70 08/13/16 06:00 118 08/13/16 05:27 112 20 97/53 99 08/13/16 05:00 70 08/13/16 04:00 97.5 114 18 102/59 100 08/13/16 04:00 114 08/13/16 03:30 90/63 08/13/16 03:00 103/58 08/13/16 03:00 108 08/13/16 02:37 111 08/13/16 02:30 89/51 08/13/16 02:00 108 08/13/16 02:00 90/52 08/13/16 01:30 109/62 08/13/16 01:00 90/47 08/13/16 01:00 66 08/13/16 00:31 86/45 08/13/16 00:30 88/30 08/13/16 00:12 67 92/47 99 08/13/16 00:00 66 08/13/16 00:00 97.6 67 18 86/43 99 08/12/16 23:00 70 08/12/16 22:00 62 08/12/16 21:00 114 08/12/16 20:00 97.6 104 18 102/53 98 08/12/16 20:00 130 08/12/16 19:54 104 08/12/16 19:00 114 08/12/16 17:12 118 I/O 08/12/16 08/12/16 08/12/16 08/13/16 08/13/16 08/13/16 07:00 15:00 23:00 07:00 15:00 23:00 Intake Total 730 ml 640 ml 120 ml Output Total 175 ml 800 ml 350 ml Balance 555 ml -160 ml -230 ml Intake Oral 480 ml 640 ml 120 ml IV Total 250 ml 0 ml 0 ml Output Urine Total 175 ml 800 ml 350 ml Bladder Scan Volume Amount 980 ml 980 ml # Bowel Movements 0 0 Result Diagram: 08/13/16 0535 08/13/16 0535 Imaging Last Impressions Chest X-Ray 08/11/16 0000 Signed Impressions: Service Date/Time: Thursday, August 11, 2016 21:18 - CONCLUSION: 1. Pacer lead overlies right ventricle. Mild congestive heart failure. No pneumothorax. Zion Bermeo MD Abdomen X-Ray 08/05/16 0000 Signed Impressions: Service Date/Time: Friday, August 05, 2016 08:43 - CONCLUSION: Gaseous distention without obstruction. No acute abnormalities. Iam Moralez MD Head CT 07/31/16 1315 Signed Impressions: Service Date/Time: Sunday, July 31, 2016 14:31 - CONCLUSION: Atrophy with moderate vascular calcifications, negative for acute process. Kamari Peoples MD FACR Hip and Pelvis X-Ray 07/31/16 0000 Signed Impressions: Service Date/Time: Sunday, July 31, 2016 13:30 - CONCLUSION: Negative for fracture or dislocation. Followup in 7-10 days is suggested if symptoms persist. Kamari Peoples MD FACR Aorta CTA 07/31/16 0000 Signed Impressions: Service Date/Time: Sunday, July 31, 2016 17:05 - CONCLUSION: Extensive atherosclerotic vascular calcifications with no evidence of aneurysm . Degenerative findings of the lower lumbar spine. Moderate size retrocardiac hiatal hernia Andrey Warren MD Objective Remarks GENERAL: Well-developed well-nourished, in no apparent distress. SKIN: Warm and dry. HEAD: Atraumatic. Normocephalic. EYES: Pupils equal and round. No scleral icterus. No injection or drainage. ENT: No nasal bleeding or discharge. Mucous membranes pink and moist. NECK: Trachea midline. No JVD. CARDIOVASCULAR: Irregularly irregular rhythm. RESPIRATORY: No accessory muscle use. Clear to auscultation. Breath sounds equal bilaterally. GASTROINTESTINAL: Abdomen with diffuse tenderness to palpation. Distention noted in the suprapubic area. Positive bowel sounds. MUSCULOSKELETAL: No obvious deformities. No clubbing. No cyanosis. No edema. There is minimal tenderness about the left greater trochanter on the left hip. No bruising no laceration. NEUROLOGICAL: Awake and alert. No cranial nerves II through XII are grossly intact and nonfocal, 5 out of 5 strength in all 4 extremities. PSYCHIATRIC: Mood and affect appropriate. Procedures Pacemaker placement. Medications and IVs Current Medications Medications (Trade) Dose Ordered Sig/Alfreda Route Start Time Stop Time Status Last Admin (Narcan Inj) 0.4 mg UNSCH PRN IV 07/31/16 18:30 (Nitrostat Sl) 0.4 mg Q5M PRN SL 07/31/16 18:30 (Pill Splitter) 1 ea UNSCH PRN OTHER 08/01/16 10:30 (Lipitor) 20 mg HS PO 08/01/16 21:00 08/12/16 20:45 (Ecotrin Ec) 81 mg DAILY PO 08/02/16 09:00 08/13/16 07:51 (Theragran M Tab) 1 tab DAILY PO 08/02/16 09:00 08/13/16 07:51 (Miralax) 17 gm DAILY PO 08/02/16 09:00 08/13/16 07:51 (Pepcid) 10 mg BID PO 08/01/16 21:00 08/13/16 07:52 Patient Own Medication PT OWN MED: COMBI... Q12HR EACH EYE 08/01/16 21:00 Hold Patient Own Medication PT OWN MED: NAMENDA... DAILY PO 08/01/16 16:00 Hold (Xalatan 0.005% Opt Soln) 1 drop HS EACH EYE 08/01/16 21:00 08/12/16 20:45 (Senokot) 17.2 mg DAILY PO 08/01/16 16:00 08/13/16 07:53 (SEROquel) 25 mg HS PO 08/02/16 21:00 08/12/16 20:44 (Lovenox Inj) 30 mg Q24H SQ 08/03/16 11:00 08/13/16 11:00 (Ferrous Sulfate) 325 mg DAILY PO 08/03/16 11:00 08/13/16 07:53 (Vasotec) 2.5 mg BID PO 08/05/16 12:00 Hold 08/13/16 07:53 (Zofran Inj) 4 mg Q4H PRN IV 08/11/16 21:15 (Ultram) 25 mg Q4H PRN PO 08/11/16 21:15 (Ultram) 50 mg Q4H PRN PO 08/11/16 21:15 (NS Flush) 2 ml BID IVF 08/12/16 09:00 08/13/16 07:53 (NS Flush) 2 ml UNSCH PRN IVF 08/11/16 21:15 (Cardizem) 60 mg Q6HR PO 08/12/16 18:00 08/13/16 05:36 (Lanoxin) 0.125 mg DAILY PO 08/12/16 16:00 08/13/16 07:51 (Lopressor) 50 mg Q12HR PO 08/12/16 21:00 Hold 08/13/16 07:53 A/P Assessment and Plan NSTEMI The patient was found to have a troponin that peaked at 16.1. EKG with T-wave inversions in the lateral leads with some ST depression. She denies chest pain or shortness of breath. Chest x-ray with findings of CHF. Cardiology consult appreciated. LDL 47. - Continue cardiac regimen. - Cardiology decided to proceed with non-invasive approach. A fib with RVR Now with pauses/ asystole on telemetry. Cardiology was reconsulted. S/p PPM / 10. HR stable 08/13. - resume Cardizem and digoxin. Hold metoprolol in the setting of hypotension. - dc'ed coumadin due to dementia and history of falls. CHF BNP markedly elevated. CXR consistent with CHF. Appears Euvolemic. Echo shows reduced EF and LAD wall motion abnormality. - continue cardiac regimen. - diurese as needed. Hypotension Likely secondary to blood pressure medications. Responded to fluid bolus. - Hold metoprolol but continue diltiazem for rate control. - Bolus as needed. Supratherapeutic INR The pt is on Coumadin for history of CVA. She lives in an [facility] and has frequent falls. Head CT negative for bleed. - d/c'ed Coumadin. Dementia The pt is on Namenda. She has frequent falls and resides in an [facility]. Per the patient's daughter she is normally independent but when she comes to Hospital she always becomes disoriented. She follows with Dr. Schultz from neurology. Appreciate neurology consult. - PT/OT/ case management consult. - continue Namenda. - neurology consult appreciated- further work-up as outpatient. Anemia Fairly stable H/H. - f/u as outpatient. [place] Creatinine not far from baseline. Improved 08/08. - avoid nephrotoxins. Urinary retention Resolved with Skinner. - Continue Skinner. PPx: Lovenox. Discharge Planning Anticipate discharge to SNF in 1-2 days. Tramaine Easley DO Aug 13, 2016 16:07
[2016-08-13] MEDS ORDERED: BISACODYL EC 5 MG TABEC PO ONE (16:15)
[2016-08-13] MEDS: ATORVASTATIN 20 MG TAB PO SCH (20:53)
[2016-08-13] MEDS: DOCUSATE SODIUM 100 MG CAP PO SCH (20:53)
[2016-08-13] MEDS: QUEtiapine FUMARATE 25 MG TAB PO SCH (20:53)
[2016-08-13] MEDS: LATANOPROST 0.005% OPHT SOLN 2.5 ML BTL EACH EYE SCH (20:54)
[2016-08-14] VITALS (16 sets, daily range): BP systolic 107–141; BP diastolic 63–88; PULSE 62–116; RESP 16–18; TEMP 98.1–98.5; O2SAT 98–99
[2016-08-14] MEDS: POLYETHYLENE GLYCOL 17 GM PKG PO SCH (09:00)
[2016-08-14] MEDS: SODIUM CHLORIDE 0.9% FLUSH 5 ML FLUSH IVF SCH ×2 (09:00→20:59)
[2016-08-14] MEDS: SENNOSIDES 8.6 MG TAB PO SCH (09:00)
[2016-08-14] MEDS: FERROUS SULFATE 325 MG (65 MG ELEMENTAL IRON) TAB PO SCH (09:55)
[2016-08-14] MEDS: DIGOXIN 0.125 MG TAB PO SCH (09:55)
[2016-08-14] MEDS: MULTIVITAMINS/MINERALS THERAPEUTIC TAB PO SCH (09:55)
[2016-08-14] MEDS: ASPIRIN EC 81 MG TABEC PO SCH (09:56)
[2016-08-14] MEDS: FAMOTIDINE 20 MG TAB PO SCH ×2 (09:56→20:57)
[2016-08-14] MEDS: DOCUSATE SODIUM 100 MG CAP PO SCH ×2 (09:56→20:58)
[2016-08-14] MEDS: DILTIAZEM HCL 60 MG TAB PO SCH ×4 (09:56→23:48)
[2016-08-14] MEDS: METOPROLOL TARTRATE 25 MG TAB PO SCH ×2 (09:58→20:58)
--- NOTE | 2016-08-14 10:00 | HHI.PR ---
Subjective Remarks The patient was too tired to work with physical therapy this morning. She had no acute complaints. She was confused and not sure where she was. She denied any pain or shortness of breath. Her friend was at the bedside. Discussed with physical therapy. Objective Vitals Vital Signs Date Time Temp Pulse Resp B/P Pulse Ox O2 Delivery O2 Flow Rate FiO2 08/14/16 04:00 71 08/14/16 03:00 98.2 110 18 107/67 98 08/14/16 00:00 103 08/13/16 23:00 98.5 103 18 120/78 99 08/13/16 20:00 77 08/13/16 19:00 98.8 77 18 143/72 97 08/13/16 18:00 71 08/13/16 16:58 70 08/13/16 16:00 66 08/13/16 15:15 98.4 65 20 109/56 99 08/13/16 15:00 64 08/13/16 14:00 66 08/13/16 13:00 78 08/13/16 12:00 60 08/13/16 11:30 98.4 59 20 93/52 100 08/13/16 11:00 60 08/13/16 10:29 60 91/46 08/13/16 10:00 92 I/O 08/13/16 08/13/16 08/13/16 08/14/16 08/14/16 08/14/16 07:00 15:00 23:00 07:00 15:00 23:00 Intake Total 120 ml 980 ml 240 ml Output Total 350 ml 300 ml 425 ml Balance -230 ml 680 ml -185 ml Intake Oral 120 ml 480 ml 240 ml IV Total 0 ml 500 ml 0 ml Output Urine Total 350 ml 300 ml 425 ml # Bowel Movements 0 1 Result Diagram: 08/13/16 0535 08/13/16 0535 Imaging Last Impressions Chest X-Ray 08/11/16 0000 Signed Impressions: Service Date/Time: Thursday, August 11, 2016 21:18 - CONCLUSION: 1. Pacer lead overlies right ventricle. Mild congestive heart failure. No pneumothorax. Zion Bermeo MD Abdomen X-Ray 08/05/16 0000 Signed Impressions: Service Date/Time: Friday, August 05, 2016 08:43 - CONCLUSION: Gaseous distention without obstruction. No acute abnormalities. Iam Moralez MD Head CT 07/31/16 1315 Signed Impressions: Service Date/Time: Sunday, July 31, 2016 14:31 - CONCLUSION: Atrophy with moderate vascular calcifications, negative for acute process. Kamari Peoples MD FACR Hip and Pelvis X-Ray 07/31/16 0000 Signed Impressions: Service Date/Time: Sunday, July 31, 2016 13:30 - CONCLUSION: Negative for fracture or dislocation. Followup in 7-10 days is suggested if symptoms persist. Kamari Peoples MD FACR Aorta CTA 07/31/16 0000 Signed Impressions: Service Date/Time: Sunday, July 31, 2016 17:05 - CONCLUSION: Extensive atherosclerotic vascular calcifications with no evidence of aneurysm . Degenerative findings of the lower lumbar spine. Moderate size retrocardiac hiatal hernia Andrey Warren MD Objective Remarks GENERAL: Well-developed well-nourished, in no apparent distress. SKIN: Warm and dry. HEAD: Atraumatic. Normocephalic. EYES: Pupils equal and round. No scleral icterus. No injection or drainage. ENT: No nasal bleeding or discharge. Mucous membranes pink and moist. NECK: Trachea midline. No JVD. CARDIOVASCULAR: Tachycardic, irregularly irregular rhythm. RESPIRATORY: No accessory muscle use. Clear to auscultation. Breath sounds equal bilaterally. GASTROINTESTINAL: Abdomen with diffuse tenderness to palpation. Distention noted in the suprapubic area. Positive bowel sounds. MUSCULOSKELETAL: No obvious deformities. No clubbing. No cyanosis. No edema. There is minimal tenderness about the left greater trochanter on the left hip. No bruising no laceration. NEUROLOGICAL: Awake and alert. No cranial nerves II through XII are grossly intact and nonfocal, 5 out of 5 strength in all 4 extremities. PSYCHIATRIC: Confused. Procedures Pacemaker placement. Medications and IVs Current Medications Medications (Trade) Dose Ordered Sig/Alfreda Route Start Time Stop Time Status Last Admin (Narcan Inj) 0.4 mg UNSCH PRN IV 07/31/16 18:30 (Nitrostat Sl) 0.4 mg Q5M PRN SL 07/31/16 18:30 (Pill Splitter) 1 ea UNSCH PRN OTHER 08/01/16 10:30 (Lipitor) 20 mg HS PO 08/01/16 21:00 08/13/16 20:53 (Ecotrin Ec) 81 mg DAILY PO 08/02/16 09:00 08/13/16 07:51 (Theragran M Tab) 1 tab DAILY PO 08/02/16 09:00 08/13/16 07:51 (Miralax) 17 gm DAILY PO 08/02/16 09:00 08/13/16 07:51 (Pepcid) 10 mg BID PO 08/01/16 21:00 08/13/16 20:53 Patient Own Medication PT OWN MED: COMBI... Q12HR EACH EYE 08/01/16 21:00 Hold Patient Own Medication PT OWN MED: NAMENDA... DAILY PO 08/01/16 16:00 Hold (Xalatan 0.005% Opt Soln) 1 drop HS EACH EYE 08/01/16 21:00 08/13/16 20:54 (Senokot) 17.2 mg DAILY PO 08/01/16 16:00 08/13/16 07:53 (SEROquel) 25 mg HS PO 08/02/16 21:00 08/13/16 20:53 (Lovenox Inj) 30 mg Q24H SQ 08/03/16 11:00 08/13/16 11:00 (Ferrous Sulfate) 325 mg DAILY PO 08/03/16 11:00 08/13/16 07:53 (Vasotec) 2.5 mg BID PO 08/05/16 12:00 Hold 08/13/16 07:53 (Zofran Inj) 4 mg Q4H PRN IV 08/11/16 21:15 (Ultram) 25 mg Q4H PRN PO 08/11/16 21:15 (Ultram) 50 mg Q4H PRN PO 08/11/16 21:15 (NS Flush) 2 ml BID IVF 08/12/16 09:00 08/13/16 20:54 (NS Flush) 2 ml UNSCH PRN IVF 08/11/16 21:15 (Cardizem) 60 mg Q6HR PO 08/12/16 18:00 08/13/16 22:44 (Lanoxin) 0.125 mg DAILY PO 08/12/16 16:00 08/13/16 07:51 (Colace) 100 mg BID PO 08/13/16 21:00 08/13/16 20:53 (Lopressor) 25 mg Q12HR PO 08/14/16 10:00 A/P Assessment and Plan NSTEMI The patient was found to have a troponin that peaked at 16.1. EKG with T-wave inversions in the lateral leads with some ST depression. She denies chest pain or shortness of breath. Chest x-ray with findings of CHF. Cardiology consult appreciated. LDL 47. - Continue cardiac regimen. - Cardiology decided to proceed with non-invasive approach. A fib with RVR Now with pauses/ asystole on telemetry. Cardiology was reconsulted. S/p PPM . HR elevated 08/14. - resume Cardizem and digoxin. Resume metoprolol at a lower dose in the setting of hypotension. - dc'ed coumadin due to dementia and history of falls. CHF BNP markedly elevated. CXR consistent with CHF. Appears Euvolemic. Echo shows reduced EF and LAD wall motion abnormality. - continue cardiac regimen. - diurese as needed. Hypotension Likely secondary to blood pressure medications. Responded to fluid bolus. - continue diltiazem. Add back lower dose Lopressor as HR uncontrolled. - Bolus as needed. Supratherapeutic INR The pt is on Coumadin for history of CVA. She lives in an [facility] and has frequent falls. Head CT negative for bleed. - d/c'ed Coumadin. Dementia The pt is on Namenda. She has frequent falls and resides in an [facility]. Per the patient's daughter she is normally independent but when she comes to Hospital she always becomes disoriented. She follows with Dr. Schultz from neurology. Appreciate neurology consult. - PT/OT/ case management consult. - continue Namenda. - neurology consult appreciated- further work-up as outpatient. Anemia Fairly stable H/H. - f/u as outpatient. [place] Creatinine not far from baseline. Stable 08/13. - avoid nephrotoxins. Urinary retention Resolved with Skinner. - Continue Skinner. Likely voiding trial at [facility]. PPx: Lovenox. Discharge Planning Anticipate discharge to SNF in 1-2 days if HR and BP remain controlled. Tramaine Easley DO Aug 14, 2016 10:00
--- NOTE | 2016-08-14 10:44 | RADRPT ---
EXAM DATE/TIME: 08/14/2016 10:17 [place] COMPARISON: CHEST SINGLE AP, August 11, 2016, 21:18. INDICATIONS : Post Pacemaker MEDICAL HISTORY : Heart attack and mini strokes SURGICAL HISTORY : None. ENCOUNTER: Initial ACUITY: 1 day PAIN SCORE: 0/10 LOCATION: Bilateral chest FINDINGS: A single view of the chest demonstrates interval worsening in the radiographic appearance of the ches t with increasing bilateral pleural effusions, more prominent and indistinct interstitial markings an d persistent cardiomegaly characteristic of advancing CHF. Left subclavian unipolar pacer is radiogra phically intact. Osseous structures are intact. CONCLUSION: 1. Interval worsening in the radiographic appearance of the chest with spectrum of findings character istic of worsening CHF and bilateral effusions. 2. Left subclavian unipolar pacer remains radiographically intact. No pneumothorax. Ajay Draper MD on August 14, 2016 at 10:40 Board Certified Radiologist. This report was verified electronically.
[2016-08-14] MEDS: ENOXAPARIN SODIUM 30 MG/0.3 ML SYRINGE SQ SCH (11:52)
[2016-08-14] MEDS: ATORVASTATIN 20 MG TAB PO SCH (20:57)
[2016-08-14] MEDS: QUEtiapine FUMARATE 25 MG TAB PO SCH (20:57)
[2016-08-14] MEDS: LATANOPROST 0.005% OPHT SOLN 2.5 ML BTL EACH EYE SCH (20:59)
[2016-08-14] MEDS ORDERED: METOPROLOL TARTRATE 50 MG TAB PO SCH (21:00)
[2016-08-15] VITALS (15 sets, daily range): BP systolic 99–151; BP diastolic 51–92; PULSE 64–122; RESP 16–20; TEMP 97.4–98.6; O2SAT 94–99
[2016-08-15] MEDS: DILTIAZEM HCL 60 MG TAB PO SCH ×3 (05:13→18:04)
[2016-08-15] MEDS: METOPROLOL TARTRATE 25 MG TAB PO SCH (09:00)
[2016-08-15] MEDS ORDERED: FUROSEMIDE 40 MG/4 ML VIAL IV PUSH ONE (09:00)
[2016-08-15] MEDS: DIGOXIN 0.125 MG TAB PO SCH (09:00)
[2016-08-15] MEDS: SODIUM CHLORIDE 0.9% FLUSH 5 ML FLUSH IVF SCH ×2 (10:26→21:00)
[2016-08-15] MEDS: DOCUSATE SODIUM 100 MG CAP PO SCH ×2 (10:27→21:00)
[2016-08-15] MEDS: FERROUS SULFATE 325 MG (65 MG ELEMENTAL IRON) TAB PO SCH (10:27)
[2016-08-15] MEDS: ASPIRIN EC 81 MG TABEC PO SCH (10:27)
[2016-08-15] MEDS: POLYETHYLENE GLYCOL 17 GM PKG PO SCH (10:27)
[2016-08-15] MEDS: MULTIVITAMINS/MINERALS THERAPEUTIC TAB PO SCH (10:28)
[2016-08-15] MEDS: FAMOTIDINE 20 MG TAB PO SCH ×2 (10:28→21:57)
[2016-08-15] MEDS: SENNOSIDES 8.6 MG TAB PO SCH (10:28)
[2016-08-15] MEDS: ENOXAPARIN SODIUM 30 MG/0.3 ML SYRINGE SQ SCH (12:05)
[2016-08-15] MEDS ORDERED: METOPROLOL TARTRATE 25 MG TAB PO ONE (13:45)
--- NOTE | 2016-08-15 13:49 | HHI.PR ---
Subjective Remarks The patient was confused. She said she wanted to go to [place]. She said she wanted me to talk to her parents. Occupational therapy was about to work with the patient. Discussed with case management. Objective Vitals Vital Signs Date Time Temp Pulse Resp B/P Pulse Ox O2 Delivery O2 Flow Rate FiO2 08/15/16 12:07 97.4 117 18 140/92 97 08/15/16 09:35 97.6 68 20 99/51 94 08/15/16 06:00 115 08/15/16 05:00 112 08/15/16 04:00 97.8 112 16 139/83 96 08/15/16 04:00 68 08/15/16 03:00 76 08/15/16 02:00 64 08/15/16 01:00 64 08/15/16 00:00 97.8 71 16 137/71 99 08/15/16 00:00 67 08/14/16 23:00 76 08/14/16 22:00 70 08/14/16 21:00 72 08/14/16 20:00 98.1 74 16 137/65 99 08/14/16 20:00 73 08/14/16 17:00 112 08/14/16 15:11 98.2 73 18 141/63 99 08/14/16 15:00 74 08/14/16 14:00 66 I/O 08/14/16 08/14/16 08/14/16 08/15/16 08/15/16 08/15/16 06:59 14:59 22:59 06:59 14:59 22:59 Intake Total 240 ml 120 ml Output Total 425 ml 775 ml Balance -185 ml -775 ml 120 ml Intake Oral 240 ml 120 ml IV Total 0 ml Output Urine Total 425 ml 775 ml # Bowel Movements 1 Result Diagram: 08/13/16 0535 08/13/16 0535 Imaging Last Impressions Chest X-Ray 08/14/16 0000 Signed Impressions: Service Date/Time: Sunday, August 14, 2016 10:17 - CONCLUSION: 1. Interval worsening in the radiographic appearance of the chest with spectrum of findings characteristic of worsening CHF and bilateral effusions. 2. Left subclavian unipolar pacer remains radiographically intact. No pneumothorax. Ajay Draper MD Abdomen X-Ray 08/05/16 0000 Signed Impressions: Service Date/Time: Friday, August 05, 2016 08:43 - CONCLUSION: Gaseous distention without obstruction. No acute abnormalities. Iam Moralez MD Head CT 07/31/16 1315 Signed Impressions: Service Date/Time: Sunday, July 31, 2016 14:31 - CONCLUSION: Atrophy with moderate vascular calcifications, negative for acute process. Kamari Peoples MD FACR Hip and Pelvis X-Ray 07/31/16 0000 Signed Impressions: Service Date/Time: Sunday, July 31, 2016 13:30 - CONCLUSION: Negative for fracture or dislocation. Followup in 7-10 days is suggested if symptoms persist. Kamari Peoples MD FACR Aorta CTA 07/31/16 0000 Signed Impressions: Service Date/Time: Sunday, July 31, 2016 17:05 - CONCLUSION: Extensive atherosclerotic vascular calcifications with no evidence of aneurysm . Degenerative findings of the lower lumbar spine. Moderate size retrocardiac hiatal hernia Andrey Warren MD Objective Remarks GENERAL: Well-developed well-nourished, in no apparent distress. SKIN: Warm and dry. HEAD: Atraumatic. Normocephalic. EYES: Pupils equal and round. No scleral icterus. No injection or drainage. ENT: No nasal bleeding or discharge. Mucous membranes pink and moist. NECK: Trachea midline. No JVD. CARDIOVASCULAR: Tachycardic, irregularly irregular rhythm. RESPIRATORY: No accessory muscle use. Clear to auscultation. Breath sounds equal bilaterally. GASTROINTESTINAL: Abdomen with diffuse tenderness to palpation. Distention noted in the suprapubic area. Positive bowel sounds. MUSCULOSKELETAL: No obvious deformities. No clubbing. No cyanosis. No edema. There is minimal tenderness about the left greater trochanter on the left hip. No bruising no laceration. NEUROLOGICAL: Awake and alert. No cranial nerves II through XII are grossly intact and nonfocal, 5 out of 5 strength in all 4 extremities. PSYCHIATRIC: Confused. Procedures Pacemaker placement. Medications and IVs Current Medications Medications (Trade) Dose Ordered Sig/Alfreda Route Start Time Stop Time Status Last Admin (Narcan Inj) 0.4 mg UNSCH PRN IV 07/31/16 18:30 (Nitrostat Sl) 0.4 mg Q5M PRN SL 07/31/16 18:30 (Pill Splitter) 1 ea UNSCH PRN OTHER 1/31/17 10:30 (Lipitor) 20 mg HS PO 08/01/16 21:00 08/14/16 20:57 (Ecotrin Ec) 81 mg DAILY PO 08/02/16 09:00 08/15/16 10:27 (Theragran M Tab) 1 tab DAILY PO 08/02/16 09:00 08/15/16 10:28 (Miralax) 17 gm DAILY PO 08/02/16 09:00 08/15/16 10:27 (Pepcid) 10 mg BID PO 08/01/16 21:00 08/15/16 10:28 Patient Own Medication PT OWN MED: COMBI... Q12HR EACH EYE 08/01/16 21:00 Hold Patient Own Medication PT OWN MED: NAMENDA... DAILY PO 08/01/16 16:00 Hold (Xalatan 0.005% Opth Soln) 1 drop HS EACH EYE 08/01/16 21:00 08/14/16 20:59 (Senokot) 17.2 mg DAILY PO 08/01/16 16:00 08/15/16 10:28 (SEROquel) 25 mg HS PO 08/02/16 21:00 08/14/16 20:57 (Lovenox Inj) 30 mg Q24H SQ 08/03/16 11:00 08/15/16 12:05 (Ferrous Sulfate) 325 mg DAILY PO 08/03/16 11:00 08/15/16 10:27 (Vasotec) 2.5 mg BID PO 08/05/16 12:00 Hold 08/13/16 07:53 (Zofran Inj) 4 mg Q4H PRN IV 08/11/16 21:15 (Ultram) 25 mg Q4H PRN PO 08/11/16 21:15 (Ultram) 50 mg Q4H PRN PO 08/11/16 21:15 (NS Flush) 2 ml BID IVF 08/12/16 09:00 08/15/16 10:26 (NS Flush) 2 ml UNSCH PRN IVF 08/11/16 21:15 (Cardizem) 60 mg Q6HR PO 08/12/16 18:00 08/15/16 12:11 (Lanoxin) 0.125 mg DAILY PO 08/12/16 16:00 08/15/16 09:00 (Colace) 100 mg BID PO 08/13/16 21:00 08/15/16 10:27 (Lopressor) 50 mg Q12HR PO 08/15/16 21:00 UNV (Lopressor) 25 mg ONCE ONCE PO 08/15/16 13:45 08/15/16 13:46 UNV A/P Assessment and Plan NSTEMI The patient was found to have a troponin that peaked at 16.1. EKG with T-wave inversions in the lateral leads with some ST depression. She denies chest pain or shortness of breath. Chest x-ray with findings of CHF. Cardiology consult appreciated. LDL 47. - Continue cardiac regimen. - Cardiology decided to proceed with non-invasive approach. A fib with RVR Now with pauses/ asystole on telemetry. Cardiology was reconsulted. S/p PPM . HR elevated 08/15. - resume Cardizem and digoxin. Resume metoprolol at 50 mg BID and monitor for hypotension. - dc'ed coumadin due to dementia and history of falls. CHF BNP markedly elevated. CXR consistent with CHF. Appears Euvolemic. Echo shows reduced EF and LAD wall motion abnormality. - continue cardiac regimen. - diurese as needed. Hypotension Likely secondary to blood pressure medications. Responded to fluid bolus. - continue diltiazem. Add back Lopressor as HR uncontrolled and pressure has been stable. - Bolus as needed. Supratherapeutic INR The pt is on Coumadin for history of CVA. She lives in an [facility] and has frequent falls. Head CT negative for bleed. - d/c'ed Coumadin. Dementia The pt is on Namenda. She has frequent falls and resides in an [facility]. Per the patient's daughter she is normally independent but when she comes to Hospital she always becomes disoriented. She follows with Dr. Schultz from neurology. Appreciate neurology consult. - PT/OT/ case management consult. - continue Namenda. - neurology consult appreciated- further work-up as outpatient. Anemia Fairly stable H/H. - f/u as outpatient. [place] Creatinine not far from baseline. Stable 08/13. - avoid nephrotoxins. Urinary retention Resolved with Skinner. - Continue Skinner. Likely voiding trial at [facility]. PPx: Lovenox. Discharge Planning Anticipate discharge to SNF in 1-2 days if HR and BP remain controlled. Tramaine Easley DO Aug 15, 2016 13:49
[2016-08-15] MEDS: LATANOPROST 0.005% OPHT SOLN 2.5 ML BTL EACH EYE SCH (21:00)
[2016-08-15] MEDS: ATORVASTATIN 20 MG TAB PO SCH (21:57)
[2016-08-15] MEDS: QUEtiapine FUMARATE 25 MG TAB PO SCH (21:57)
[2016-08-15] MEDS: METOPROLOL TARTRATE 50 MG TAB PO SCH (21:57)
[2016-08-16] VITALS (9 sets, daily range): BP systolic 111–132; BP diastolic 49–70; PULSE 64–93; RESP 18–20; TEMP 97.6–98.5; O2SAT 9–94
[2016-08-16] MEDS: DILTIAZEM HCL 60 MG TAB PO SCH ×3 (05:05→12:30)
[2016-08-16 08:38] LABS: HEMATOCRIT 34.8 % (35.0-46.0); MEAN CELL VOLUME 89.4 FL (80.0-100.0); MEAN CORPUSCULAR HEMOGLOBIN 28.7 PG (27.0-34.0); MEAN CORPUSCULAR HGB CONC 32.1 % (32.0-36.0); PLATELET COUNT 344 TH/MM3 (150-450); RED BLOOD COUNT 3.89 MIL/MM3 (4.00-5.30); RED CELL DISTRIBUTION WIDTH 15.4 % (11.6-17.2); REVIEW FLAG FINAL; WHITE BLOOD COUNT 6.7 TH/MM3 (4.0-11.0)
[2016-08-16 09:06] LABS: BICARBONATE 21.4 MEQ/L (21.0-32.0); MAGNESIUM 2.1 MG/DL (1.5-2.5); POTASSIUM 3.7 MEQ/L (3.5-5.1)
[2016-08-16] MEDS ORDERED: DILT60TA33 PO (09:06)
[2016-08-16] MEDS ORDERED: METO-309 PO (09:06)
[2016-08-16] MEDS ORDERED: DIGO0.12 PO (09:06)
--- NOTE | 2016-08-16 09:23 | HHI.DCPOC ---
Discharge Care Plan Diagnosis: (1) Paroxysmal a-fib (2) NSTEMI (non-ST elevated myocardial infarction) (3) Frequent falls (4) Dementia Goals to Promote Your Health * To prevent worsening of your condition and complications * To maintain your health at the optimal level Directions to Meet Your Goals Take your medications as prescribed Follow your dietary instruction Follow activity as directed Keep your appointments as scheduled Take your immunizations and boosters as scheduled If your symptoms worsen call your PCP, if no PCP go to Urgent Care Center or Emergency Room Smoking is Dangerous to Your Health. Avoid second hand smoke Call the 24-hour hour crisis hotline for domestic abuse at Tramaine Easley DO Aug 16, 2016 09:23
--- NOTE | 2016-08-16 09:30 | HHI.DS ---
Discharge Summary Admission Date Jul 31, 2016 at 18:17 Discharge Date: Aug 16, 2016 Admitting Diagnosis NSTEMI (1) Dementia ICD Code: F03.90 (2) Frequent falls ICD Code: R29.6 (3) Paroxysmal a-fib ICD Code: I48.0 Diagnosis: Principal (4) NSTEMI (non-ST elevated myocardial infarction) ICD Code: I21.4 Diagnosis: Principal Procedures Pacemaker placement. Brief History - From Admission The patient is an 86-year-old female with a past medical history of CVA who is presenting to the hospital with complaints of left leg pain and confusion. The patient states that she tends to fall down on a daily basis. She says she even hits her head on a regular basis. She currently resides in an assisted living facility. Her friend was concerned with the patient's increasing confusion. She has a history of dementia for which she takes Namenda. The patient states that her left hip is bothering her because it's bruised from falling down frequently. She otherwise has no acute complaints. She denies any chest pain or shortness of breath. She says she generally takes stool softeners to make sure she is regular. The patient was taken to the [facility] where she was found to have elevated troponins. She was transferred to the main medora and evaluated by cardiology. The patient continues to deny any chest pain. She was found to have an elevated INR over 5. She received vitamin K. Head CT was negative for a bleed. Her hemoglobin is considerably lower than it was on the previous admission. CBC/BMP: 08/16/16 0735 08/16/16 0735 Significant Findings Laboratory Tests Test 08/16/16 07:35 Red Blood Count 3.89 MIL/MM3 (4.00-5.30) Hemoglobin 11.2 GM/DL (11.6-15.3) Hematocrit 34.8 % (35.0-46.0) Chloride Level 112 MEQ/L (98-107) Estimat Glomerular Filtration 71 ML/MIN (>89) Rate Calcium Level 8.1 MG/DL (8.5-10.1) Imaging Last Impressions Chest X-Ray 2/13/17 0000 Signed Impressions: Service Date/Time: Sunday, August 14, 2016 10:17 - CONCLUSION: 1. Interval worsening in the radiographic appearance of the chest with spectrum of findings characteristic of worsening CHF and bilateral effusions. 2. Left subclavian unipolar pacer remains radiographically intact. No pneumothorax. Ajay Draper MD Abdomen X-Ray 08/05/16 0000 Signed Impressions: Service Date/Time: Friday, August 05, 2016 08:43 - CONCLUSION: Gaseous distention without obstruction. No acute abnormalities. Iam Moralez MD Head CT 07/31/16 1315 Signed Impressions: Service Date/Time: Sunday, July 31, 2016 14:31 - CONCLUSION: Atrophy with moderate vascular calcifications, negative for acute process. Kamari Peoples MD FACR Hip and Pelvis X-Ray 07/31/16 0000 Signed Impressions: Service Date/Time: Sunday, July 31, 2016 13:30 - CONCLUSION: Negative for fracture or dislocation. Followup in 7-10 days is suggested if symptoms persist. Kamari Peoples MD FACR Aorta CTA 07/31/16 0000 Signed Impressions: Service Date/Time: Sunday, July 31, 2016 17:05 - CONCLUSION: Extensive atherosclerotic vascular calcifications with no evidence of aneurysm . Degenerative findings of the lower lumbar spine. Moderate size retrocardiac hiatal hernia Andrey Warren MD PE at Discharge GENERAL: Well-developed well-nourished, in no apparent distress. SKIN: Warm and dry. HEAD: Atraumatic. Normocephalic. EYES: Pupils equal and round. No scleral icterus. No injection or drainage. ENT: No nasal bleeding or discharge. Mucous membranes pink and moist. NECK: Trachea midline. No JVD. CARDIOVASCULAR: Irregularly irregular rhythm. RESPIRATORY: No accessory muscle use. Clear to auscultation. Breath sounds equal bilaterally. GASTROINTESTINAL: Abdomen with diffuse tenderness to palpation. Distention noted in the suprapubic area. Positive bowel sounds. MUSCULOSKELETAL: No obvious deformities. No clubbing. No cyanosis. No edema. There is minimal tenderness about the left greater trochanter on the left hip. No bruising no laceration. NEUROLOGICAL: Awake and alert. No cranial nerves II through XII are grossly intact and nonfocal, 5 out of 5 strength in all 4 extremities. PSYCHIATRIC: Pleasant. Pt update on day of discharge The patient was feeling well. She had no acute complaints. She had some confusion. Discussed with nursing. Hospital Course NSTEMI The patient was found to have a troponin that peaked at 16.1. EKG with T-wave inversions in the lateral leads with some ST depression. She denied chest pain or shortness of breath. Chest x-ray with findings of CHF. Cardiology was consulted. Medical management was decided on based on neuro status. LDL was 47. She was continued on a cardiac regimen. A fib with RVR The pt had a difficult heart rate to control. Cardiology was consulted. The pt developed pauses which were noted on telemetry. Cardiology was reconsulted. S/p PPM 08/11. She was resumed on Cardizem, Lopressor and digoxin. Lopressor was held in the setting of hypotension, which the pt recovered from with fluid boluses. Her heart rate became elevated again and Lopressor was resumed. The pt' s blood pressure and heart rate have remained stable. We discontinued Coumadin due to dementia and history of falls. She will follow up with cardiology as an outpt. CHF BNP markedly elevated. CXR consistent with CHF. Echo shows reduced EF and LAD wall motion abnormality. She will continue her cardiac regimen. Supratherapeutic INR The pt is on Coumadin for history of CVA. She lives in an [facility] and has frequent falls. Head CT negative for bleed. We discontinued Coumadin. Dementia The pt is on Namenda. She has frequent falls and resides in an [facility]. Per the patient's daughter she is normally independent but when she comes to a hospital she always becomes disoriented. She follows with Dr. Schultz from neurology. Neurology was consulted. She worked with PT/OT. Case management was consulted. She was continued on Namenda. She will follow up with neurology as an outpt. Urinary retention Resolved with Skinner placement. She will continue the Skinner and will need a voiding trial at the SNF. Pt Condition on Discharge: Stable Discharge Disposition: Discharge to SNF Discharge Time: > 30 minutes Discharge Instructions DIET: Follow Instructions for: Heart Healthy Diet Activities you can perform: Weight Bearing as Makenna Follow up Referrals: Cardiology - [address] Delgado Neurology - 2 Weeks with Julio Schultz MD PCP Follow-up - 1 Week New Medications: Digoxin (Digoxin) 0.125 Mg Tab 0.125 MG PO DAILY Heart #30 TAB Diltiazem (Cardizem) 60 Mg Tab 60 MG PO Q6HR Heart #120 TAB Enalapril (Enalapril) 2.5 Mg Tab 2.5 MG PO BID hypertension Days 30 Ref 0 TAB Ferrous Sulfate (Ferrous Sulfate) 325 Mg Tab 325 MG PO DAILY anemia Days 30 Ref 0 TAB Metoprolol Tartrate (Lopressor) 50 Mg Tab 50 MG PO Q12HR Heart #60 TAB Continued Medications: Aspirin (Aspirin) 81 Mg Chew 81 MG CHEW DAILY Ref 0 TAB Atorvastatin (Atorvastatin) 20 Mg Tab 20 MG PO HS Cholesterol Management #30 Ref 0 TAB Brimonidine-Timolol Opth Drops (Combigan Opth Drops) 0.2-0.5% Soln 1 DROP EACH EYE Q12HR Glaucoma Ref 0 BOTTLE Memantine Er (Namenda Xr) 28 Mg Caper 28 MG PO DAILY Alzheimer Disease #30 Ref 0 CAP Multiple Vitamins W/ Minerals (Multivitamin Adults) 1 Tab 1 TAB PO DAILY Nutritional Supplement Ref 0 TAB Polyethylene Glycol 3350 Powder (Miralax Powder) 17 Gm Powd 17 GM PO DAILY Mix and dissolve one measuring cap-ful (17 grams) in water or juice. Constipation #1 Ref 0 BOTTLE Ranitidine (Ranitidine) 150 Mg Tab 150 MG PO BID Heartburn Management #60 Ref 0 TAB Travoprost Opth Drops (Travatan Z Opth Drops) 0.004 % Soln 1 DROP EACH EYE HS Glaucoma #1 Ref 0 BOTTLE Discontinued Medications: Amlodipine (Amlodipine) 5 Mg Tab 5 MG PO DAILY Blood Pressure Management #30 Ref 0 TAB Warfarin (Warfarin) 5 Mg Tab 6 MG PO DAILY Blood Clot Prevention #30 Ref 0 TAB Tramaine Easley DO Aug 16, 2016 09:30
[2016-08-16] MEDS: ASPIRIN EC 81 MG TABEC PO SCH (09:39)
[2016-08-16] MEDS: MULTIVITAMINS/MINERALS THERAPEUTIC TAB PO SCH (09:39)
[2016-08-16] MEDS: FAMOTIDINE 20 MG TAB PO SCH (09:39)
[2016-08-16] MEDS: FERROUS SULFATE 325 MG (65 MG ELEMENTAL IRON) TAB PO SCH (09:39)
[2016-08-16] MEDS: METOPROLOL TARTRATE 50 MG TAB PO SCH (09:39)
[2016-08-16] MEDS: SENNOSIDES 8.6 MG TAB PO SCH (09:39)
[2016-08-16] MEDS: DOCUSATE SODIUM 100 MG CAP PO SCH (09:40)
[2016-08-16] MEDS: DIGOXIN 0.125 MG TAB PO SCH (09:40)
[2016-08-16] MEDS: POLYETHYLENE GLYCOL 17 GM PKG PO SCH (09:40)
[2016-08-16] MEDS: ENOXAPARIN SODIUM 30 MG/0.3 ML SYRINGE SQ SCH (11:00)
--- NOTE | 2016-08-16 16:22 | MP ---
cc: AMARILIS SARAH M.D. DATE OF SURGERY: 08/11/2016 PROCEDURE Single-chamber permanent pacemaker insertion. INDICATION Mrs. Edward is an 86-year-old female with episode of syncope, severe bradycardia up to 15-second pauses, who is to undergo single-chamber pacer insertion. The risks, the nature and the benefit of the procedure were clearly stated to her. The risks include pneumothorax, cardiac perforation, stroke and even . She understood and agreed to proceed. DETAILS OF PROCEDURE After written informed consent was obtained, the patient was brought to the EP lab where she was prepped and draped in the usual sterile fashion. Conscious sedation was initiated and maintained throughout the procedure by the anesthesiologist. Once sedation was verified, the left infraclavicular area was anesthetized with 2% Xylocaine. Using modified Seldinger technique, the left subclavian vein was cannulated on one occasion and one guidewire was advanced. Then using a #11 scalpel, an 2 cm incision was made two fingerbreadths below the left clavicle. Dissection was then taken down to the fascial layer using Bovie cautery and blunt dissection. Into the inferior medial direction, a device pocket was dissected. Then the wire was dissected into the pocket. A 2-0 Vicryl suture was placed around the wire to prevent back bleeding. At this point over the wire a 7-Brazilian dilator and introducer was advanced. As the dilator and wire were removed, an active fixation right ventricular pacing and sensing lead was advanced. After adequate pacing and sensing thresholds were obtained, the lead was secured into the pocket using 2-0 Ethibond suture. At that point the pocket was copiously irrigated using antibiotic solution. The lead was connected to the generator and placed into the pocket. I did proceed with wound closure. The deep fascial layer was approximated using 2-0 Vicryl suture in a continuous fashion. The subcutaneous layer was approximated using 2-0 Vicryl suture in a continuous fashion. The subcuticular layer was approximated using 2-0 Vicryl suture in a continuous fashion. Dermabond adhesive was applied to the wound followed by a sterile pressure dressing. There was no complication. The patient tolerated the procedure. Blood loss minimal. IMPLANTED HARDWARE The implanted permanent pacemaker is a [employer], model WB0637, serial number [id number]. The right ventricular pacing and sensing lead is a [employer], model 1688TC-52, serial number [id number]. THRESHOLDS The right ventricular pacing threshold in the bipolar mode was 2.5 volts at 0.5 milliseconds. Lead impedance 750 ohms. R-wave at 5.6 millivolts. SETTINGS The device is set in a VVIR 60, upper limit 100 beats per minute. CONCLUSIONS Successful permanent pacemaker insertion. COMMENT/RECOMMENDATION The patient is going to be transferred to the telemetry unit. He will be observed and when stable can be discharged home. Amarilis Sarah MD HS/BT /1:13 PM /4:13 PM
== END 2016-08-16 15:44 | DRG 243 ==
LOC: PHED 11:33 → PHEDA 18:17 → PHEDH 22:17 → HCIS 08-01 08:57
PROVIDERS: ADMIT Hospitalist; ATTEND Hospitalist
PROC: 02HK3JZ Insertion of Pacemaker Lead into Right Ventricle, Percutaneous Approach (ICD-10-PCS; 2016-08-11)
PROC: 0JH604Z Insertion of Pacemaker, Single Chamber into Chest Subcutaneous Tissue and Fascia, Open Approach (ICD-10-PCS; principal; 2016-08-11 21:30)
DX: I21.4 Non-ST elevation (NSTEMI) myocardial infarction (principal); N17.9 Acute kidney failure, unspecified; F03.90 Unspecified dementia, unspecified severity, without behavioral disturbance, psychotic disturbance, mood disturbance, and anxiety; I11.0 Hypertensive heart disease with heart failure; N39.0 Urinary tract infection, site not specified; I50.30 Unspecified diastolic (congestive) heart failure; I49.5 Sick sinus syndrome; I48.0 Paroxysmal atrial fibrillation; R29.6 Repeated falls; D64.9 Anemia, unspecified; T45.515A Adverse effect of anticoagulants, initial encounter; R79.1 Abnormal coagulation profile; H91.90 Unspecified hearing loss, unspecified ear; K21.9 Gastro-esophageal reflux disease without esophagitis; H40.9 Unspecified glaucoma; M25.552 Pain in left hip; K44.9 Diaphragmatic hernia without obstruction or gangrene; E78.5 Hyperlipidemia, unspecified; M19.90 Unspecified osteoarthritis, unspecified site; Z66 Do not resuscitate; Z79.01 Long term (current) use of anticoagulants; Z86.11 Personal history of tuberculosis; Z86.73 Personal history of transient ischemic attack (TIA), and cerebral infarction without residual deficits; Z87.891 Personal history of nicotine dependence; Z88.0 Allergy status to penicillin; Z88.1 Allergy status to other antibiotic agents; Z88.5 Allergy status to narcotic agent
CPT/HCPCS: 33207; 70450; 71010; 71275; 73502; 74000; 74174; 80048; 80053; 80061; 80162; 81001; 82550; 82552; 82607; 82728; 82746; 83036; 83540; 83550; 83690; 83735; 83880; 84100; 84484; 85025; 85027; 85610; 85730; 87086; 93005; 93306; 96374; 96375; C1786; C1898; J1160; J1200; J1650; J1940; J2060; J2920; J3370; J7040; P9612; Q9967

== ENCOUNTER 2016-08-18 08:32 | Emergency (ER) | payer MEDICARE ==
[~2016-08-18 08:32] MED LIST changes: -AMLO5TAB2 PO; +DIGO0.12 PO; +DILT60TA33 PO; +ENAL2.5T PO; +FERR325T PO; +METO-309 PO; +TRAV0.00 EACH EYE; -WARF-23 PO
[2016-08-18 08:41] VITALS: BP 145/66; PULSE 111; RESP 26; TEMP 98; O2SAT 100
[2016-08-18 08:51] VITALS: O2SAT 100
--- NOTE | 2016-08-18 08:53 | PD ---
HPI Chief Complaint: Respiratory Symptoms Time Seen by Provider: 08:38 Travel History International Travel<30 days: No Contact w/Intl Traveler<30days: No Traveled to known affect area: No History of Present Illness HPI 86-year-old female complains of shortness of breath. Patient resides at local halfway. Patient was found to be hypoxic with O2 saturation around 79% this morning. Patient is on home O2. Patient was given albuterol treatment at the local halfway. EMS was called. Patient was given nonrebreathing mask and transported to ED for evaluation. Patient denies headache. Patient denies any chest pain. Patient denies abdominal pain. Patient denies any nausea vomiting diarrhea. Patient denies any fever chills. Patient has history of atrial fibrillation, CHF, dementia. Patient was recently admitted and discharged 2 days ago with diagnosis of non-STEMI. PFSH Past Medical History Arthritis: Yes Asthma: No Autoimmune Disease: No Anxiety: No Depression: No Heart Rhythm Problems: No Cancer: No Cardiovascular Problems: Yes High Cholesterol: Yes Chest Pain: No Congestive Heart Failure: No COPD: No Cerebrovascular Accident: Yes Dementia: Yes Diabetes: No Diminished Hearing: Yes Endocrine: No Gastrointestinal Disorders: Yes GERD: Yes Glaucoma: Yes (EVA.) Genitourinary: Yes (KIDNEY SX ) Hepatitis: No Hiatal Hernia: No Hypertension: Yes Immune Disorder: No Kidney Stones: No Musculoskeletal: Yes Neurologic: Yes Psychiatric: No Reproductive: No Respiratory: Yes (HX OF TB ) Immunizations Current: Yes Migraines: No Renal Failure: No Seizures: No Sickle Cell Disease: No Sleep Apnea: No Thyroid Disease: No Ulcer: No Menopausal: Yes : 0 Past Surgical History Abdominal Surgery: Yes (BOWEL OBSTRUCTION,colon resection APPENDECTOMY) AICD: No Appendectomy: Yes Arteriovenous Shunt: No Cardiac Surgery: No Ear Surgery: No Endocrine Surgery: No Eye Surgery: Yes (CATARACT AND LASER) Genitourinary Surgery: Yes (KIDNEY SX, pyeloplasty ?/) Gynecologic Surgery: No Insulin Pump: No Joint Replacement: No Oral Surgery: No Pacemaker: No Thoracic Surgery: No Other Surgery: Yes Social History Alcohol Use: No Tobacco Use: Yes (QUIT 20 YEARS AGO- smoked cigs) Substance Use: No Allergies-Medications (Allergen,Severity, Reaction): Coded Allergies: Codeine (Verified Allergy, Severe, unknown reaction, 08/18/16) Flagyl (Verified Allergy, Severe, severe oral swelling, 08/18/16) Iodine (Verified Allergy, Severe, 08/18/16) HIVES Penicillin (Verified Allergy, Severe, hands swelled, 08/18/16) Bactrim (Verified Allergy, Mild, Rash, 08/18/16) Cipro (Verified Allergy, Unknown, 08/18/16) Reported Meds & Prescriptions Reported Meds & Active Scripts Active Lopressor (Metoprolol Tartrate) 50 Mg Tab 50 Mg PO Q12HR Cardizem (Diltiazem HCl) 60 Mg Tab 60 Mg PO Q6HR Digoxin 0.125 Mg Tab 0.125 Mg PO DAILY Enalapril (Enalapril Maleate) 2.5 Mg Tab 2.5 Mg PO BID 30 Days Ferrous Sulfate 325 Mg Tab 325 Mg PO DAILY 30 Days Reported Travatan Z Opth Drops (Travoprost) 0.004 % Soln 1 Drop EACH EYE HS Atorvastatin (Atorvastatin Calcium) 20 Mg Tab 20 Mg PO HS Combigan Opth Drops (Brimonidine-Timolol Opth Drops) 0.2-0.5% Soln 1 Drop EACH EYE Q12HR Ranitidine (Ranitidine HCl) 150 Mg Tab 150 Mg PO BID Namenda Xr (Memantine) 28 Mg Caper 28 Mg PO DAILY Aspirin 81 Mg Chew 81 Mg CHEW DAILY Multivitamin Adults (Multiple Vitamins W/ Minerals) 1 Tab 1 Tab PO DAILY Miralax Powder (Polyethylene Glycol 3350 Powder) 17 Gm Powd 17 Gm PO DAILY Mix and dissolve one measuring cap-ful (17 grams) in water or juice. Review of Systems General / Constitutional: No: Fever Eyes: No: Visual changes HENT: No: Headaches Cardiovascular: No: Chest Pain or Discomfort Respiratory: Positive: Shortness of Breath Gastrointestinal: No: Abdominal Pain Genitourinary: No: Dysuria Musculoskeletal: No: Pain Skin: No Rash Neurologic: No: Weakness Psychiatric: No: Depression Endocrine: No: Polydipsia Hematologic/Lymphatic: No: Easy Bruising Physical Exam Narrative GENERAL: Well-nourished, well-developed patient. SKIN: Warm and dry. HEAD: Normocephalic. EYES: No scleral icterus. No injection or drainage. NECK: Supple, trachea midline. No JVD or lymphadenopathy. CARDIOVASCULAR: Regular rate and rhythm without murmurs, gallops, or rubs. RESPIRATORY: Breath sounds equal bilaterally. No accessory muscle use. Patient has rhonchi diffusely bibasilar. GASTROINTESTINAL: Abdomen soft, non-tender, nondistended. MUSCULOSKELETAL: No cyanosis, or edema. BACK: Nontender without obvious deformity. No CVA tenderness. Neurologic exam: Patient's lethargic however answer questions appropriately. Patient moves all extremity well. No obvious focal neurological deficit. Data Data Last Documented VS Vital Signs Date Time Temp Pulse Resp B/P Pulse Ox O2 Delivery O2 Flow Rate FiO2 08/18/16 09:32 110 26 133/93 96 08/18/16 08:51 Non-Rebreather 15 08/18/16 08:41 98.0 Orders Electrocardiogram (08/18/16 ) Complete Blood Count With Diff (08/18/16 08:47) Comprehensive Metabolic Panel (08/18/16 08:47) Creatine Kinase (Cpk) (08/18/16 08:47) Troponin I (08/18/16 08:47) B-Type Natriuretic Peptide (08/18/16 08:47) Prothrombin Time / Inr (Pt) (08/18/16 08:47) Act Partial Throm Time (Ptt) (08/18/16 08:47) Urinalysis - C+S If Indicated (08/18/16 08:47) Thyroid Stimulating Hormone (08/18/16 08:47) Chest, Single Ap (08/18/16 08:47) Iv Access Insert/Monitor (08/18/16 08:47) Ecg Monitoring (08/18/16 08:47) Oximetry (08/18/16 08:47) Arterial Blood Gas (Abg) (08/18/16 ) Furosemide Inj (Lasix Inj) (08/18/16 09:45) Urine Culture (08/18/16 09:10) Hospice Consult (08/18/16 12:26) Digoxin (08/18/16 16:03) Labs Laboratory Tests Test 08/18/16 08/18/16 08/18/16 09:08 09:10 09:16 Blood Gas Puncture Site LT RADIAL Blood Gas Patient Temperature 98.6 Blood Gas HCO3 20 mmol/L Blood Gas Base Excess -3.5 mmol/L Blood Gas Oxygen Saturation 95 % Arterial Blood pH 7.47 Arterial Blood Partial 28 mmHg Pressure CO2 Arterial Blood Partial 127 mmHG Pressure O2 Arterial Blood Oxygen Content 19.9 Vol % Arterial Blood 2.5 % Carboxyhemoglobin Arterial Blood Methemoglobin 1.8 % Blood Gas Hemoglobin 14.9 G/DL Oxygen Delivery Device NRB MASK Blood Gas Inspired Oxygen 100 % Urine Color YELLOW Urine Turbidity HAZY Urine pH 5.5 Urine Specific Gaffney 1.025 Urine Protein 300 mg/dL Urine Glucose (UA) NEG mg/dL Urine Ketones 10 mg/dL Urine Occult Blood LARGE Urine Nitrite NEG Urine Bilirubin NEG Urine Urobilinogen LESS THAN 2.0 MG/DL Urine Leukocyte Esterase SMALL Urine RBC 114 /hpf Urine WBC 10 /hpf Urine Squamous Epithelial 2 /hpf Cells Urine Uric Acid Crystals FEW /hpf Urine Bacteria FEW /hpf Urine Mucus FEW /lpf Microscopic Urinalysis Comment CULTURE INDICATED White Blood Count 10.8 TH/MM3 Red Blood Count 4.01 MIL/MM3 Hemoglobin 11.7 GM/DL Hematocrit 35.7 % Mean Corpuscular Volume 88.8 FL Mean Corpuscular Hemoglobin 29.1 PG Mean Corpuscular Hemoglobin 32.8 % Concent Red Cell Distribution Width 15.7 % Platelet Count 383 TH/MM3 Mean Platelet Volume 8.2 FL Neutrophils (%) (Auto) 87.9 % Lymphocytes (%) (Auto) 5.4 % Monocytes (%) (Auto) 6.2 % Eosinophils (%) (Auto) 0.2 % Basophils (%) (Auto) 0.3 % Neutrophils # (Auto) 9.5 TH/MM3 Lymphocytes # (Auto) 0.6 TH/MM3 Monocytes # (Auto) 0.7 TH/MM3 Eosinophils # (Auto) 0.0 TH/MM3 Basophils # (Auto) 0.0 TH/MM3 CBC Comment DIFF FINAL Differential Comment Prothrombin Time 13.4 SEC Prothromb Time International 1.2 RATIO Ratio Activated Partial 23.8 SEC Thromboplast Time Sodium Level 141 MEQ/L Potassium Level 4.1 MEQ/L Chloride Level 107 MEQ/L Carbon Dioxide Level 22.9 MEQ/L Anion Gap 11 MEQ/L Blood Urea Nitrogen 23 MG/DL Creatinine 0.93 MG/DL Estimat Glomerular Filtration 57 ML/MIN Rate Random Glucose 129 MG/DL Calcium Level 8.6 MG/DL Total Bilirubin 0.9 MG/DL Aspartate Amino Transf 22 U/L (AST/SGOT) Alanine Aminotransferase 26 U/L (ALT/SGPT) Alkaline Phosphatase 128 U/L Total Creatine Kinase 81 U/L Troponin I 0.28 NG/ML B-Type Natriuretic Peptide 3064 PG/ML Total Protein 6.3 GM/DL Albumin 3.0 GM/DL Thyroid Stimulating Hormone 2.570 uIU/ML [address] [place] [address] Medical Decision Making Medical Screen Exam Complete: Yes Emergency Medical Condition: Yes Medical Record Reviewed: Yes Interpretation(s) Last Impressions Chest X-Ray 08/18/16 0847 Signed Impressions: Service Date/Time: Thursday, August 18, 2016 09:02 - CONCLUSION: No significant change. The findings remain most characteristic of congestive heart failure. Tramaine Rudolph MD 11:35 AM. CBC within normal limit. WBC 10.8. 87 neutrophil. BUN 23. Alkaline phosphatase 128. Troponin 0.28. BNP 3064. UA positive WBC RBC and bacteria. Differential Diagnosis Differential diagnosis including acute exacerbation of CHF, bronchitis, pneumonia, PE, pneumothorax. Narrative Course 86-year-old female with history of atrial fibrillation and CHF. Patient presented to the ED with shortness of breath. Patient was put on nonrebreathing mask. O2 saturation 100%. Lasix 40 mg IV given. 1303 PM. Patient is now on O2 6 L nasal cannula with O2 saturation in the mid 90s. I spoke with Dr. Easley, [facility] hospitalist. Dr. Easley came to talk to the family and the patient. Family decided on Hospice. road production general manager came to see the family and the patient. Refer patient to Hospice. Hospice personnel came to talk to the family and the patient. Patient will be transferred to hospice care center. Diagnosis Primary Impression: Acute exacerbation of CHF (congestive heart failure) Qualified Code: I50.9 - Acute on chronic congestive heart failure, unspecified congestive heart failure type Additional Impressions: Atrial fibrillation with RVR UTI (lower urinary tract infection) Additional Instructions: Patient will be transferred to hospice care facility. Med/Other Pt SpecificInfo: No Change to Meds Disposition: 51 HOSPICE/MED FACILITY Condition: Jn Shah MD Aug 18, 2016 08:53
[2016-08-18 09:19] LABS: BLOOD GAS BASE EXCESS -3.5 mmol/L (-2-2); BLOOD GAS CARBOXYHEMOGLOBIN 2.5 % (0-4); BLOOD GAS HCO3 20 mmol/L (22-26); BLOOD GAS METHEMOGLOBIN 1.8 % (0-2); BLOOD GAS O2 HGB SATURATION 95 % (90-100); BLOOD GAS OXYGEN CONTENT 19.9 Vol % (12.0-20.0); BLOOD GAS PCO2 28 mmHg (38-42); BLOOD GAS PO2 127 mmHG (61-120); BLOOD GAS TOTAL HGB 14.9 G/DL (12.0-16.0); CRITICAL VALUE NO; DRAW SITE LT RADIAL; FIO2 100 %; NUMBER OF ARTERIAL PUNCTURES 1; OXYGEN DEVICE NRB MASK; STAT YES; TEMP CORR TO 98.6; ULNAR PULSE Y
[2016-08-18 09:32] VITALS: BP 133/93; PULSE 110; RESP 26; O2SAT 96
--- NOTE | 2016-08-18 09:33 | RADRPT ---
EXAM DATE/TIME: 08/18/2016 09:02 [facility] COMPARISON: CHEST SINGLE AP, August 14, 2016, 10:17. INDICATIONS : Shortness of breath. MEDICAL HISTORY : Myocardial infarction. Stroke. SURGICAL HISTORY : Pacemaker. ENCOUNTER: Initial ACUITY: 1 day PAIN SCORE: 0/10 LOCATION: Bilateral chest FINDINGS: A single AP erect portable view of the chest was obtained again demonstrates a left subclavian transv enous pacer in place. Streaky opacity remains in the perihilar regions and both lung bases with conso lidation at the left lung base. Both costophrenic angles remain blunted. The heart size is mildly enl arged. Tracheal calcifications are again noted as well as atherosclerotic change and calcification in the aorta. The bony thorax is intact. CONCLUSION: No significant change. The findings remain most characteristic of congestive heart failure. Tramaine Rudolph MD on August 18, 2016 at 9:30 Board Certified Radiologist. This report was verified electronically.
[2016-08-18 09:44] LABS: AUTOMATED NEUTROPHIL # 9.5 TH/MM3 (1.8-7.7); BASOPHIL % 0.3 % (0.0-2.0); EOSINOPHIL % 0.2 % (0.0-4.0); HEMATOCRIT 35.7 % (35.0-46.0); HEMO FLAGS DIFF FINAL; LYMPH % 5.4 % (9.0-44.0); LYMPHOCYTE # 0.6 TH/MM3 (1.0-4.8); MEAN CELL VOLUME 88.8 FL (80.0-100.0); MEAN CORPUSCULAR HEMOGLOBIN 29.1 PG (27.0-34.0); MEAN CORPUSCULAR HGB CONC 32.8 % (32.0-36.0); MONO % 6.2 % (0.0-8.0); NEUT % 87.9 % (16.0-70.0); PLATELET COUNT 383 TH/MM3 (150-450); RED BLOOD COUNT 4.01 MIL/MM3 (4.00-5.30); RED CELL DISTRIBUTION WIDTH 15.7 % (11.6-17.2); WHITE BLOOD COUNT 10.8 TH/MM3 (4.0-11.0)
[2016-08-18] MEDS ORDERED: FUROSEMIDE 40 MG/4 ML VIAL IV PUSH ONE (09:45)
[2016-08-18 09:47] LABS: BACTERIA, URINE FEW /hpf; BLOOD, URINE LARGE (NEG); GLUCOSE,URINE NEG (NEG); KETONE, URINE 10 mg/dL (NEG); MUCUS URINE FEW /lpf (OCC); NITRITE,URINE NEG (NEG); PH, URINE 5.5 (5.0-8.5); SQUAMOUS EPITHELIAL CELL URINE 2 /hpf (0-5); URIC ACID CRYSTALS, URINE FEW /hpf
[2016-08-18 09:48] LABS: COMMENT (UR) CULTURE INDICATED; CULTURE IF INDICATED CULTURE INDICATED; URINE COLOR YELLOW (YELLW/STRAW)
[2016-08-18 09:50] LABS: APTT (PATIENT) 23.8 SEC (24.3-30.1); INTERNATIONAL NORMALIZED RATIO 1.2 RATIO; PROTHROMBIN TIME - PATIENT 13.4 SEC (9.8-11.6)
[2016-08-18 09:58] LABS: ANION GAP 11 MEQ/L (5-15); AST (GOT) 22 U/L (15-37); BICARBONATE 22.9 MEQ/L (21.0-32.0); BLOOD UREA NITROGEN 23 MG/DL (7-18); CHLORIDE 107 MEQ/L (98-107); GLOMERULAR FILTRATION RATE 57 ML/MIN (>89); POTASSIUM 4.1 MEQ/L (3.5-5.1); SODIUM (NA) 141 MEQ/L (136-145)
[2016-08-18 10:09] LABS: ALKALINE PHOSPHATASE 128 U/L (45-117); ALT (GPT) 26 U/L (10-53); CREATINE KINASE 81 U/L (26-192); TOTAL BILIRUBIN ADULT 0.9 MG/DL (0.2-1.0)
[2016-08-18 16:00] VITALS: BP 126/80; PULSE 116; RESP 16; O2SAT 98
--- NOTE | 2016-08-19 16:27 | EKG ---
Date Performed: 08/18/2016 Time Performed: 08:45:55 PTAGE: 86 years EKG: ATRIAL FIBRILLATION WITH RAPID VENTRICULAR RESPONSE LOW QRS VOLTAGE IN EXTREMITY LEADS DIFF USE NONSPECIFIC ST-T WAVE CHANGE Compared to previous tracing, the rhythm has changed from Sinus rhyt hm to atrial fibrillation with rapid venticular response. There is still poor R wave progression in V1- V3, there appears to be smal inferior Q waves in leads III and AVF, which were also present on the pr evious tracing, inferior infarct of undetermined age cannot be excluded. Clinical correlation is priscilla mmended ABNORMAL ECG PREVIOUS TRACING : 08/12/2016 16.21 DOCTOR: Darryl Quezada Interpretating Date/Time 08/19/2016 16:26:49
== END 2016-08-18 17:56 | disposition hospice, inpatient (51) ==
LOC: NEPC 08:32
DX: I50.9 Heart failure, unspecified (principal); I48.91 Unspecified atrial fibrillation; N39.0 Urinary tract infection, site not specified; Z99.81 Dependence on supplemental oxygen; M19.90 Unspecified osteoarthritis, unspecified site; E78.00 Pure hypercholesterolemia, unspecified; F03.90 Unspecified dementia, unspecified severity, without behavioral disturbance, psychotic disturbance, mood disturbance, and anxiety; I10 Essential (primary) hypertension; Z86.73 Personal history of transient ischemic attack (TIA), and cerebral infarction without residual deficits
CPT/HCPCS: 36600; 71010; 80053; 80162; 81001; 82550; 82805; 83880; 84443; 84484; 85025; 85610; 85730; 87086; 93005; 96374; 99285; J1940